=== PATIENT | male | born 1985 | race Caucasian/White ===

== ENCOUNTER 2017-02-05 11:06 | Inpatient (IN) | payer OTHER ==
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
[2017-02-05 12:56] VITALS: BMI 26.4
[2017-02-05] MEDS ORDERED: diazePAM 5 MG TABLET PO ONE (19:59)
[2017-02-05] MEDS ORDERED: NICOTINE 14 MG/24 HOURS TOPICAL PATCH TD PRN (19:59)
[2017-02-05] MEDS ORDERED: LOPERAMIDE HCL 2 MG CAPSULE PO PRN (19:59)
[2017-02-05] MEDS ORDERED: MAG HYDROX/AL HYDROX/SIMETH 30 ML UNIT-DOSE CUP PO PRN (19:59)
[2017-02-05] MEDS ORDERED: guaiFENesin/D-METHORPHAN HB 10 ML UNIT-DOSE CUPS PO PRN (19:59)
[2017-02-05] MEDS ORDERED: ACETAMINOPHEN 325 MG TABLET (FP) PO PRN (19:59)
[2017-02-05] MEDS ORDERED: MAGNESIUM HYDROX 2400MG/30ML ORAL SUSPENSION 30 ML CUP PO PRN (19:59)
[2017-02-05] MEDS ORDERED: MENTHOL/PHENOL 1 EACH UD MM PRN (19:59)
[2017-02-05] MEDS ORDERED: IBUPROFEN 400 MG TABLET (FP) PO PRN (19:59)
[2017-02-05] MEDS ORDERED: MAGNESIUM CITRATE 300 ML BOTTLE PO PRN (19:59)
[2017-02-05] MEDS ORDERED: P-EPHED 60MG/TRIPROLIDI 2.5MG TABLET PO PRN (19:59)
[2017-02-05] MEDS ORDERED: diazePAM 5 MG TABLET ONE (20:33)
[2017-02-05 22:15] LABS: URINE APPEARANCE CLEAR; URINE BILIRUBIN NEGATIVE (NEGATIVE); URINE BLOOD NEGATIVE (NEGATIVE); URINE COLOR LTYELLOW; URINE GLUCOSE (UA) NEGATIVE (NEGATIVE); URINE KETONE NEGATIVE (NEGATIVE); URINE LEUK ESTERASE NEGATIVE (NEGATIVE); URINE NITRITE NEGATIVE (NEGATIVE); URINE PROTEIN NEGATIVE (NEGATIVE); URINE UROBILINOGEN NEGATIVE E.U./dl (0.2-1.0)
[2017-02-05] MEDS: THIAMINE HCL 100 MG TABLET (FP) PO SCH (22:19)
[2017-02-05] MEDS: diazePAM 5 MG TABLET PO SCH (22:19)
[2017-02-05] MEDS: diphenhydrAMINE HCL 50 MG CAPSULE PO PRN (22:56)
[2017-02-06] MEDS: diazePAM 5 MG TABLET PO SCH ×3 (06:01→22:02)
[2017-02-06] MEDS: METHADONE HCL 40 MG DISPERSABLE TABLET PO SCH (07:34)
[2017-02-06] MEDS: diazePAM 5 MG TABLET PO PRN ×3 (08:04→17:12)
[2017-02-06 10:27] LABS: MCHC 32.8 g/dl (32.0-35.9); MEAN CELL VOLUME 91.5 fl (80-96); MEAN PLT VOLUME 9.1 fl (7.5-11.1); PLATELET COUNT 164 K/MM3 (134-434); RDW 13.8 % (11.9-15.9); WHITE BLOOD COUNT 8.6 K/mm3 (4.0-10.0)
[2017-02-06] MEDS: PRENATAL VITAMINS W/ FOLIC ACID TABLET (FP) PO SCH (10:29)
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
[2017-02-06 11:09] LABS: ALK PHOS 83 U/L (45-117); ANION GAP 9 (8-16); BILIRUBIN,TOTAL 0.8 mg/dL (0.2-1.0); CO2 29 mmol/L (21-32); COCKROFT - GAULT 176.8; CREATININE 0.8 mg/dL (0.7-1.3); GLUCOSE,RANDOM 64 mg/dL (74-106); SGOT/AST 38 U/L (15-37); SGPT/ALT 32 U/L (12-78); TOT PROT 6.6 g/dl (6.4-8.2)
[2017-02-06 12:40] LABS: HIV 1 & 2 AB NEGATIVE; HIV 1 AGp24 NEGATIVE
--- NOTE | 2017-02-06 17:20 | EKG ---
Test Reason : Blood Pressure : / mmHG Vent. Rate : 059 BPM Atrial Rate : 059 BPM P-R Int : 130 ms QRS Dur : 106 ms QT Int : 458 ms P-R-T Axes : 001 064 057 degrees QTc Int : 453 ms SINUS BRADYCARDIA OTHERWISE NORMAL ECG NO PREVIOUS ECGS AVAILABLE Confirmed by KELI HERRERA MD ([id number]) on 02/06/2017 5:20:41 PM Referred By: Confirmed By:KELI HERRERA MD
[2017-02-06] MEDS: NICOTINE POLACRILEX 2 MG GUM BC PRN (20:39)
[2017-02-06] MEDS: diphenhydrAMINE HCL 50 MG CAPSULE PO PRN (22:02)
[2017-02-06] MEDS: THIAMINE HCL 100 MG TABLET (FP) PO SCH (22:02)
[2017-02-07] MEDS: diazePAM 5 MG TABLET PO PRN ×4 (02:58→17:13)
[2017-02-07] MEDS: NICOTINE POLACRILEX 2 MG GUM BC PRN (04:11)
[2017-02-07] MEDS: METHADONE HCL 40 MG DISPERSABLE TABLET PO SCH (05:45)
[2017-02-07] MEDS: PRENATAL VITAMINS W/ FOLIC ACID TABLET (FP) PO SCH (10:09)
[2017-02-07] MEDS: diazePAM 5 MG TABLET PO SCH ×2 (10:10→22:03)
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
[2017-02-07] MEDS: BISACODYL 5 MG TABLET.DR (FP) PO SCH (12:59)
[2017-02-07] MEDS: THIAMINE HCL 100 MG TABLET (FP) PO SCH (22:03)
[2017-02-07] MEDS: diphenhydrAMINE HCL 50 MG CAPSULE PO PRN (22:03)
[2017-02-08] MEDS: diazePAM 5 MG TABLET PO PRN ×4 (02:53→17:08)
[2017-02-08] MEDS: METHADONE HCL 40 MG DISPERSABLE TABLET PO SCH (06:01)
[2017-02-08] MEDS: NICOTINE POLACRILEX 2 MG GUM BC PRN (06:04)
[2017-02-08] MEDS: diazePAM 5 MG TABLET PO SCH ×2 (10:03→22:07)
[2017-02-08] MEDS: PRENATAL VITAMINS W/ FOLIC ACID TABLET (FP) PO SCH (10:03)
[2017-02-08] MEDS: BISACODYL 5 MG TABLET.DR (FP) PO SCH (10:03)
[2017-02-08] MEDS: THIAMINE HCL 100 MG TABLET (FP) PO SCH (22:07)
[2017-02-08] MEDS: diphenhydrAMINE HCL 50 MG CAPSULE PO PRN (22:08)
[2017-02-09] MEDS: METHADONE HCL 40 MG DISPERSABLE TABLET PO SCH (05:47)
[2017-02-09 06:20] VITALS: BP 98/59; PULSE 76; TEMP 97.9
[2017-02-09] MEDS: PRENATAL VITAMINS W/ FOLIC ACID TABLET (FP) PO SCH (09:04)
[2017-02-09] MEDS: BISACODYL 5 MG TABLET.DR (FP) PO SCH (09:04)
[2017-02-09] MEDS ORDERED: diazePAM 5 MG TABLET PO SCH (10:00)
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
== END 2017-02-09 09:28 | disposition home or self-care (01) | DRG 773 ==
LOC: YASAS 11:06 → Y3N 17:56
PROVIDERS: ADMIT Internal Medicine; ATTEND Internal Medicine
PROC: HZ2ZZZZ Detoxification Services for Substance Abuse Treatment (ICD-10-PCS; principal; 2017-02-09)
DX: F11.20 Opioid dependence, uncomplicated (principal); F13.20 Sedative, hypnotic or anxiolytic dependence, uncomplicated; F15.20 Other stimulant dependence, uncomplicated; F17.210 Nicotine dependence, cigarettes, uncomplicated; F32.9 Major depressive disorder, single episode, unspecified; S05.12XA Contusion of eyeball and orbital tissues, left eye, initial encounter; S30.1XXA Contusion of abdominal wall, initial encounter; S20.229A Contusion of unspecified back wall of thorax, initial encounter; Y00.XXXA Assault by blunt object, initial encounter; Y93.89 Activity, other specified; Y99.8 Other external cause status
CPT/HCPCS: 36415; 80053; 81003; 85027; 86593; 86803; 87389; 93005; 93010

== ENCOUNTER → 2017-02-05 | Emergency (ER) | payer OTHER ==
[2017-02-05 12:21] VITALS: BP 118/76; PULSE 59; TEMP 98; BMI 29.2
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
[2017-02-05 14:32] LABS: URINE APPEARANCE CLEAR; URINE BILIRUBIN NEGATIVE (NEGATIVE); URINE BLOOD NEGATIVE (NEGATIVE); URINE COLOR LTYELLOW; URINE GLUCOSE (UA) NEGATIVE (NEGATIVE); URINE KETONE NEGATIVE (NEGATIVE); URINE LEUK ESTERASE NEGATIVE (NEGATIVE); URINE NITRITE NEGATIVE (NEGATIVE); URINE PROTEIN NEGATIVE (NEGATIVE); URINE UROBILINOGEN NEGATIVE E.U./dl (0.2-1.0)
== END | disposition home or self-care (01) ==
LOC: JER 12:05
DX: S00.83XA Contusion of other part of head, initial encounter (principal); S30.1XXA Contusion of abdominal wall, initial encounter; S20.222A Contusion of left back wall of thorax, initial encounter; S20.221A Contusion of right back wall of thorax, initial encounter; Y00.XXXA Assault by blunt object, initial encounter; Y93.89 Activity, other specified; Y92.89 Other specified places as the place of occurrence of the external cause; F11.10 Opioid abuse, uncomplicated; F13.10 Sedative, hypnotic or anxiolytic abuse, uncomplicated; F16.10 Hallucinogen abuse, uncomplicated
CPT/HCPCS: 70450-TC; 70486-TC; 72070-TC; 81003; 99281-25

== ENCOUNTER 2017-05-08 16:32 | Inpatient (IN) | payer OTHER ==
[2017-05-08 17:16] VITALS: BMI 26.2
--- NOTE | 2017-05-08 17:42 | HP ---
CIWA Score - CIWA Score Nausea/Vomitin-Mild Nausea/No Vomiting Muscle Tremors: 4-Moderate,w/Arms Extend Anxiety: 4-Mod. Anxious/Guarded Agitation: 4-Moderately Restless Paroxysmal Sweats: 1-Minimal Palms Moist Orientation: 1-Uncertain about Date Tacttile Disturbances: 0-None Auditory Disturbances: 0-None Visual Disturbances: 0-None Headache: 0-None Present CIWA-Ar Total Score: 15 Admission ROS S - HPI Chief Complaint: withdrawal sx Allergies/Adverse Reactions: Allergies Allergy/AdvReac Type Severity Reaction Status Date / Time No Known Allergies Allergy Verified 05/08/17 18:19 History of Present Illness: 32 years old male with long history of xanax nicotine dependence, has depression and on methadone program 120 mg daily is admitted to detox Exam Limitations: No Limitations - Ebola screening Have you traveled outside of the country in the last 21 days: No (N) Have you had contact with anyone from an Ebola affected area: No Have you been sick,other than usual withdrawal symptoms: No Do you have a fever: No - Review of Systems Constitutional: Chills, Loss of Appetite, Changes in sleep, Unintentional Wgt. Loss, Unexplained wgt Loss EENT: reports: No Symptoms Reported Respiratory: reports: No Symptoms reported Cardiac: reports: No Symptoms Reported GI: reports: Nausea, Poor Fluid Intake, Abdominal cramping : reports: No Symptoms Reported Musculoskeletal: reports: No Symptoms Reported Integumentary: reports: Change in Color (hands iv heroin) Neuro: reports: Tremors Endocrine: reports: No Symptoms Reported Hematology: reports: No Symptoms Reported Psychiatric: reports: Judgement Intact, Depressed Other Systems: Reviewed and Negative Patient History - Patient Medical History Hx Anemia: No Hx Asthma: No Hx Chronic Obstructive Pulmonary Disease (COPD): No Hx Cancer: No Hx Cardiac Disorders: No Hx Congestive Heart Failure: No Hx Hypertension: No Hx Hypercholesterolemia: No Hx Pacemaker: No HX Cerebrovascular Accident: No Hx Seizures: No Hx Dementia: No Hx Diabetes: No Hx Gastrointestinal Disorders: No Hx Liver Disease: No Hx Genitourinary Disorders: No Hx Sexually Transmitted Disorders: No Hx Renal Disease (ESRD): No Hx Thyroid Disease: No Hx Human Immunodeficiency Virus (HIV): No Hx Hepatitis C: No Hx Depression: Yes (anxiety) Hx Suicide Attempt: No Hx Bipolar Disorder: No Hx Schizophrenia: No - Patient Surgical History Past Surgical History: No Hx Neurologic Surgery: No Hx Cataract Extraction: No Hx Cardiac Surgery: No Hx Lung Surgery: No Hx Breast Surgery: No Hx Breast Biopsy: No Hx Abdominal Surgery: No Hx Appendectomy: No Hx Cholecystectomy: No Hx Genitourinary Surgery: No Hx Orthopedic Surgery: No - PPD History Previous Implant?: Yes Documented Results: Negative w/proof Implanted On Prior [facility] Admission?: Yes Date: 02/07/17 Results: 0 mm PPD to be Administered?: No - Smoking Cessation Smoking history: Current every day smoker Have you smoked in the past 12 months: Yes Aproximately how many cigarettes per day: 20 Cigars Per Day: 0 Hx Chewing Tobacco Use: No Initiated information on smoking cessation: Yes 'Breaking Loose' booklet given: 05/08/17 - Substance & Tx. History Hx Alcohol Use: No Hx Substance Use: Yes Substance Use Type: Cocaine, Heroin, Tranquilizers Hx Substance Use Treatment: Yes (02/05-02/09/17 [facility] - Substances Abused Alprazolam (Xanax) Route: Oral Frequency: Daily Amount used: 6mg Age of first use: 20 Date of Last Use: 05/07/17 Benzodiazepine (Klonopin) Route: Oral Frequency: Daily Amount used: 4 mg Age of first use: 20 Date of Last Use: 05/08/17 methadone Route: Oral Frequency: Daily Age of first use: 30 Date of Last Use: 05/08/17 Family Disease History - Family Disease History Family Disease History: [place]: Father, Other: Father, Mother (no contact) Admission Physical Exam S - Vital Signs Vital Signs: Vital Signs - 24 hr 05/08/17 17:11 Temperature 96.2 F L Pulse Rate 51 L Respiratory 18 Rate Blood Pressure 97/61 - Physical General Appearance: Yes: Appropriately Dressed, Mild Distress, Thin, Tremorous, Irritable, Sweating, Anxious HEENTM: Yes: Hearing grossly Normal, Normal ENT Inspection, Normocephalic, Normal Voice Respiratory: Yes: Chest Non-Tender, Lungs Clear, Normal Breath Sounds, No Respiratory Distress, No Accessory Muscle Use Neck: Yes: Supple, Trachea in good position Breast: Yes: Breasts Symetrical Cardiology: Yes: Regular Rhythm, S1, S2, Bradycardia Abdominal: Yes: Normal Bowel Sounds, Non Tender, Soft Genitourinary: Yes: Within Normal Limits Back: Yes: Normal Inspection Musculoskeletal: Yes: full range of Motion, Gait Steady, Back pain, Muscle Pain Extremities: Yes: Normal Range of Motion, Non-Tender, Tremors Neurological: Yes: Alert, Motor Strength 5/5, Normal Response, Depressed Affect Integumentary: Yes: Warm, Track Bee Lymphatic: Yes: Within Normal Limits - Diagnostic (1) Sedative/hypnotic withdrawal without complication Current Visit: Yes Status: Acute (2) Weight loss Current Visit: Yes Status: Acute (3) Depression Current Visit: Yes Status: Suspected Qualifiers: Depression Type: dysthymia Qualified Code(s): F34.1 - Dysthymic disorder (4) Methadone maintenance therapy patient Current Visit: Yes Status: Chronic Comment: 120 MG DAILY VERIFICATION PENDING (5) Nicotine dependence Current Visit: Yes Status: Acute Qualifiers: Nicotine product type: cigarettes Substance use status: in withdrawal Qualified Code(s): F17.213 - Nicotine dependence, cigarettes, with withdrawal Cleared for Admission [facility] - Detox or Rehab [facility] Level of Care: Medically Managed Detox Regimen/Protocol: Valium [facility] Breath Alcohol Content Breath Alcohol Content: 0 Urine Drug Screen - Results Drug Screen Negative: No Urine Drug Screen Results: KAVON-Cocaine, OPI-Opiates, PCP-Phencyclidine, BZO- Benzodiazepines, MTD-Methadone
[2017-05-08] MEDS ORDERED: MAGNESIUM HYDROX 2400MG/30ML ORAL SUSPENSION 30 ML CUP PO PRN (17:46)
[2017-05-08] MEDS ORDERED: P-EPHED 60MG/TRIPROLIDI 2.5MG TABLET PO PRN (17:46)
[2017-05-08] MEDS ORDERED: LOPERAMIDE HCL 2 MG CAPSULE PO PRN (17:46)
[2017-05-08] MEDS ORDERED: NICOTINE 21 MG/24 HOURS TOPICAL PATCH TD PRN (17:46)
[2017-05-08] MEDS ORDERED: ACETAMINOPHEN 325 MG TABLET (FP) PO PRN (17:46)
[2017-05-08] MEDS ORDERED: IBUPROFEN 400 MG TABLET (FP) PO PRN (17:46)
[2017-05-08] MEDS ORDERED: MAGNESIUM CITRATE 300 ML BOTTLE PO PRN (17:46)
[2017-05-08] MEDS ORDERED: MAG HYDROX/AL HYDROX/SIMETH 30 ML UNIT-DOSE CUP PO PRN (17:46)
[2017-05-08] MEDS ORDERED: guaiFENesin/D-METHORPHAN HB 10 ML UNIT-DOSE CUPS PO PRN (17:46)
[2017-05-08] MEDS ORDERED: MENTHOL/PHENOL 1 EACH UD MM PRN (17:46)
[2017-05-08] MEDS ORDERED: NICOTINE POLACRILEX 4 MG GUM BC PRN (17:46)
[2017-05-08] MEDS ORDERED: diazePAM 5 MG TABLET PO ONE (18:30)
[2017-05-08] MEDS: diazePAM 5 MG TABLET PO SCH (22:31)
[2017-05-08] MEDS: diphenhydrAMINE HCL 50 MG CAPSULE PO PRN (22:31)
[2017-05-08] MEDS: THIAMINE HCL 100 MG TABLET (FP) PO SCH (22:31)
[2017-05-09] MEDS: diazePAM 5 MG TABLET PO SCH ×3 (07:33→22:06)
--- NOTE | 2017-05-09 08:59 | CONSULT ---
[facility] Psychiatric Consult - Data Date of interview: 05/09/17 Admission source: [facility] Identifying data: This is 32 years old male with no psychiatric hospitalization history intoxicated with: Cocaine, PCP, Xanax, Methadone, Nicotine Substance Abuse History: - Results. Drug Screen Negative: No. Urine Drug Screen Results: KAVON-Cocaine, OPI-Opiates, PCP-Phencyclidine, BZO-Benzodiazepines , MTD-Methadone. - Smoking Cessation. Smoking history: Current every day smoker. Have you smoked in the past 12 months: Yes. Aproximately how many cigarettes per day: 20. Cigars Per Day: 0. Hx Chewing Tobacco Use: No. Initiated information on smoking cessation: Yes. 'Breaking Loose' booklet given : 05/08/17. - Substance & Tx. History. Hx Alcohol Use: No. Hx Substance Use: Yes. Substance Use Type: Cocaine, Heroin, Tranquilizers. Hx Substance Use Treatment: Yes (02/05-02/09/17 [facility]). - Substances Abused. Alprazolam ( Xanax). Route: Oral. Frequency: Daily. Amount used: 6mg. Age of first use: 20. Date of Last Use: 05/07/17. Benzodiazepine (Klonopin). Route: Oral. Frequency: Daily. Amount used: 4 mg. Age of first use: 20. Date of Last Use: 05/08/17. methadone. Route: Oral. Frequency: Daily. Age of first use: 30. Date of Last Use: 05/08/17 Medical History: Weight loss, MMTP 120 /day Psychiatric History: PTSD, reports no medication taking prior to admission Physical/Sexual Abuse/Trauma History: Denies Additional Comment: Observation. Detox Unit Care Protocol- Results. Drug Screen Negative: No. Urine Drug Screen Results: KAVON-Cocaine, OPI-Opiates, PCP- Phencyclidine, BZO-Benzodiazepines, MTD-Methadone Mental Status Exam - Mental Status Exam Alert and Oriented to: Person Cognitive Function: Fair Mood: Sad Affect: Flat Patient Behavior: Sedated Speech Pattern: Delayed Voice Loudness: Mildly Soft/Quiet Thought Process: Circumstantial Thought Disorder: Being Controlled Hallucinations: Denies Suicidal Ideation: Denies Homicidal Ideation: Denies Insight/Judgement: Fair Sleep: Difficulty falling asleep Appetite: Weight loss Muscle strength/Tone: Mild Hypotonicity Gait/Station: Shuffling Additional Comments: Observation. Detox Unit Care Protocol- Results Psychiatric Findings - Problem List (Bangs 1, 2,3) (1) Nicotine dependence Current Visit: Yes Status: Acute Qualifiers: Nicotine product type: cigarettes Substance use status: in withdrawal Qualified Code(s): F17.213 - Nicotine dependence, cigarettes, with withdrawal (2) Sedative/hypnotic withdrawal without complication Current Visit: Yes Status: Acute (3) Methadone maintenance therapy patient Current Visit: Yes Status: Chronic Comment: 120 MG DAILY VERIFICATION PENDING (4) Opioid dependence with withdrawal Current Visit: No Status: Acute (5) PCP dependence Current Visit: No Status: Acute (6) Alcohol dependence with uncomplicated withdrawal Current Visit: No Status: Chronic (7) Anxiety disorder Current Visit: No Status: Chronic (8) Cannabis dependence Current Visit: No Status: Chronic (9) Cocaine dependence Current Visit: No Status: Chronic Qualifiers: Substance use status: uncomplicated Qualified Code(s): F14.20 - Cocaine dependence, uncomplicated (10) Drug-induced mood disorder Current Visit: No Status: Chronic - Initial Treatment Plan Initial Treatment Plan: Observation. Detox Unit Care Protocol- Results
[2017-05-09] MEDS: METHADONE HCL 40 MG DISPERSABLE TABLET PO SCH (09:00)
[2017-05-09] MEDS: diazePAM 5 MG TABLET PO PRN ×2 (09:02→17:27)
--- NOTE | 2017-05-09 09:32 | PN ---
[facility] CIWA - CIWA Score Nausea/Vomitin-No Nausea/No Vomiting Muscle Tremors: 4-Moderate,w/Arms Extend Anxiety: 4-Mod. Anxious/Guarded Agitation: 4-Moderately Restless Paroxysmal Sweats: 1-Minimal Palms Moist Orientation: 0-Oriented Tacttile Disturbances: 2-Mild Itch/Numbness/Burn Auditory Disturbances: 0-None Visual Disturbances: 0-None Headache: 0-None Present CIWA-Ar Total Score: 15 S Progress Note (SOAP) Subjective: ANXIETY,SWEATS,IRRITABILITY,FATIGUE. Objective: 05/09/17 09:32 Vital Signs Temperature 97.3 F L 05/09/17 09:29 Pulse Rate 78 05/09/17 09:29 Respiratory Rate 18 05/09/17 09:29 Blood Pressure 102/68 05/09/17 09:29 O2 Sat by Pulse Oximetry (%) LABS PENDING Assessment: 05/09/17 09:32 WITHDRAWAL SX Plan: CONTINUE DETOX
[2017-05-09 10:21] LABS: MCH 29.5 pg (25.7-33.7); MCHC 32.9 g/dl (32.0-35.9); MEAN CELL VOLUME 89.8 fl (80-96); MEAN PLT VOLUME 8.9 fl (7.5-11.1); PLATELET COUNT 147 K/MM3 (134-434); RDW 13.9 % (11.9-15.9); WHITE BLOOD COUNT 6.3 K/mm3 (4.0-10.0)
[2017-05-09 10:44] LABS: ALBUMIN 3.3 g/dl (3.4-5.0); ALK PHOS 78 U/L (45-117); ANION GAP 5 (8-16); BILIRUBIN,TOTAL 0.4 mg/dL (0.2-1.0); CALCIUM 8.7 mg/dL (8.5-10.1); CO2 32 mmol/L (21-32); CREATININE 0.6 mg/dL (0.7-1.3); GLUCOSE,RANDOM 77 mg/dL (74-106); SGOT/AST 18 U/L (15-37); SGPT/ALT 20 U/L (12-78); TOT PROT 5.7 g/dl (6.4-8.2)
[2017-05-09] MEDS: PRENATAL VITAMINS W/ FOLIC ACID TABLET (FP) PO SCH (11:43)
[2017-05-09 12:07] LABS: HIV 1 & 2 AB NEGATIVE; HIV 1 AGp24 NEGATIVE
[2017-05-09 15:12] LABS: URINE APPEARANCE CLEAR; URINE BILIRUBIN NEGATIVE (NEGATIVE); URINE BLOOD NEGATIVE (NEGATIVE); URINE COLOR LTYELLOW; URINE GLUCOSE (UA) NEGATIVE (NEGATIVE); URINE KETONE NEGATIVE (NEGATIVE); URINE LEUK ESTERASE NEGATIVE (NEGATIVE); URINE NITRITE NEGATIVE (NEGATIVE); URINE PROTEIN NEGATIVE (NEGATIVE); URINE UROBILINOGEN NEGATIVE mg/dL (0.2-1.0)
--- NOTE | 2017-05-09 20:01 | EKG ---
Test Reason : Blood Pressure : / mmHG Vent. Rate : 046 BPM Atrial Rate : 046 BPM P-R Int : 132 ms QRS Dur : 104 ms QT Int : 450 ms P-R-T Axes : 002 063 059 degrees QTc Int : 393 ms SINUS BRADYCARDIA OTHERWISE NORMAL ECG WHEN COMPARED WITH ECG OF 05-FEB-2017 18:27, QT HAS SHORTENED Confirmed by HERNESTO LOPES MD ([id number]) on 05/09/2017 8:01:19 PM Referred By: Confirmed By:HERNESTO LOPES MD
[2017-05-09] MEDS: THIAMINE HCL 100 MG TABLET (FP) PO SCH (22:06)
[2017-05-09] MEDS: diphenhydrAMINE HCL 50 MG CAPSULE PO PRN (22:06)
[2017-05-10] MEDS: METHADONE HCL 40 MG DISPERSABLE TABLET PO SCH (06:04)
[2017-05-10] MEDS: diazePAM 5 MG TABLET PO PRN ×2 (06:06→17:18)
[2017-05-10] MEDS: PRENATAL VITAMINS W/ FOLIC ACID TABLET (FP) PO SCH (10:06)
[2017-05-10] MEDS: diazePAM 5 MG TABLET PO SCH ×2 (10:06→22:01)
--- NOTE | 2017-05-10 10:17 | PN ---
[facility] CIWA - CIWA Score Nausea/Vomitin-No Nausea/No Vomiting Muscle Tremors: 4-Moderate,w/Arms Extend Anxiety: 4-Mod. Anxious/Guarded Agitation: 4-Moderately Restless Paroxysmal Sweats: 1-Minimal Palms Moist Orientation: 0-Oriented Tacttile Disturbances: 3-Moderate Itch/Numb/Burn Auditory Disturbances: 0-None Visual Disturbances: 0-None Headache: 0-None Present CIWA-Ar Total Score: 16 S Progress Note (SOAP) Subjective: ANXIETY,TREMORS,BODY ACHE,IRRITABILITY, FATIGUE. Objective: 05/10/17 10:17 Vital Signs Temperature 98.2 F 05/10/17 09:39 Pulse Rate 86 05/10/17 09:39 Respiratory Rate 16 05/10/17 09:39 Blood Pressure 92/61 05/10/17 09:39 O2 Sat by Pulse Oximetry (%) Laboratory Last Values WBC 6.3 K/mm3 (4.0-10.0) 05/09/17 07:00 RBC 4.38 M/mm3 (4.00-5.60) 05/09/17 07:00 Hgb 12.9 GM/dL (11.7-16.9) 05/09/17 07:00 Hct 39.3 % (35.4-49) 05/09/17 07:00 MCV 89.8 fl (80-96) 05/09/17 07:00 MCH 29.5 pg (25.7-33.7) 05/09/17 07:00 MCHC 32.9 g/dl (32.0-35.9) 05/09/17 07:00 RDW 13.9 % (11.9-15.9) 05/09/17 07:00 Plt Count 147 K/MM3 (134-434) 05/09/17 07:00 MPV 8.9 fl (7.5-11.1) 05/09/17 07:00 Sodium 144 mmol/L (136-145) 05/09/17 07:00 Potassium 4.2 mmol/L (3.5-5.1) 05/09/17 07:00 Chloride 107 mmol/L (98-107) 05/09/17 07:00 Carbon Dioxide 32 mmol/L (21-32) 05/09/17 07:00 Anion Gap 5 (8-16) L 05/09/17 07:00 BUN 8 mg/dL (7-18) D 05/09/17 07:00 Creatinine 0.6 mg/dL (0.7-1.3) L D 05/09/17 07:00 Creat Clearance w eGFR > 60 (>60) 05/09/17 07:00 Random Glucose 77 mg/dL (74-106) D 05/09/17 07:00 Calcium 8.7 mg/dL (8.5-10.1) 05/09/17 07:00 Total Bilirubin 0.4 mg/dL (0.2-1.0) D 05/09/17 07:00 AST 18 U/L (15-37) D 05/09/17 07:00 ALT 20 U/L (12-78) D 05/09/17 07:00 Alkaline Phosphatase 78 U/L (45-117) 05/09/17 07:00 Total Protein 5.7 g/dl (6.4-8.2) L 05/09/17 07:00 Albumin 3.3 g/dl (3.4-5.0) L 05/09/17 07:00 Urine Color Ltyellow 05/09/17 12:10 Urine Appearance Clear 05/09/17 12:10 Urine pH 7.0 (5.0-8.0) 05/09/17 12:10 Ur Specific [place] 1.015 (1.005-1.025) 05/09/17 12:10 Urine Protein Negative (NEGATIVE) 05/09/17 12:10 Urine Glucose (UA) Negative (NEGATIVE) 05/09/17 12:10 Urine Ketones Negative (NEGATIVE) 05/09/17 12:10 Urine Blood Negative (NEGATIVE) 05/09/17 12:10 Urine Nitrite Negative (NEGATIVE) 05/09/17 12:10 Urine Bilirubin Negative (NEGATIVE) 05/09/17 12:10 Urine Urobilinogen Negative mg/dL (0.2-1.0) 05/09/17 12:10 Ur Leukocyte Esterase Negative (NEGATIVE) 05/09/17 12:10 RPR Titer Nonreactive (NONREACTIVE) 05/09/17 07:00 Hepatitis C Antibody <0.1 s/co ratio (0.0-0.9) 05/08/17 07:00 HIV 1&2 Antibody Screen Negative 05/09/17 07:00 HIV P24 Antigen Negative 05/09/17 07:00 Assessment: 05/10/17 10:18 WITHDRAWAL SX Plan: CONTINUE DETOX INCREASE PO FLUIDS.
[2017-05-10] MEDS ORDERED: NICOTINE 21 MG/24 HOURS TOPICAL PATCH TD ONE (12:00)
[2017-05-10] MEDS: THIAMINE HCL 100 MG TABLET (FP) PO SCH (22:01)
[2017-05-10] MEDS: diphenhydrAMINE HCL 50 MG CAPSULE PO PRN (22:01)
[2017-05-11] MEDS: METHADONE HCL 40 MG DISPERSABLE TABLET PO SCH (05:12)
[2017-05-11] MEDS: diazePAM 5 MG TABLET PO PRN ×2 (05:13→16:46)
[2017-05-11] MEDS ORDERED: NICOTINE 21 MG/24 HOURS TOPICAL PATCH TD SCH (10:00)
--- NOTE | 2017-05-11 10:28 | PN ---
S Progress Note (SOAP) Subjective: ANXIETY,SWEATS,FATIGUE. Objective: 05/11/17 10:27 Vital Signs 05/11/17 05/11/17 05/11/17 04:28 06:18 09:24 Temperature 97.2 F L 97.1 F L Pulse Rate 76 70 Respiratory 18 16 18 Rate Blood Pressure 90/59 78/55 Laboratory Last Values WBC 6.3 K/mm3 (4.0-10.0) 05/09/17 07:00 RBC 4.38 M/mm3 (4.00-5.60) 05/09/17 07:00 Hgb 12.9 GM/dL (11.7-16.9) 05/09/17 07:00 Hct 39.3 % (35.4-49) 05/09/17 07:00 MCV 89.8 fl (80-96) 05/09/17 07:00 MCH 29.5 pg (25.7-33.7) 05/09/17 07:00 MCHC 32.9 g/dl (32.0-35.9) 05/09/17 07:00 RDW 13.9 % (11.9-15.9) 05/09/17 07:00 Plt Count 147 K/MM3 (134-434) 05/09/17 07:00 MPV 8.9 fl (7.5-11.1) 05/09/17 07:00 Sodium 144 mmol/L (136-145) 05/09/17 07:00 Potassium 4.2 mmol/L (3.5-5.1) 05/09/17 07:00 Chloride 107 mmol/L (98-107) 05/09/17 07:00 Carbon Dioxide 32 mmol/L (21-32) 05/09/17 07:00 Anion Gap 5 (8-16) L 05/09/17 07:00 BUN 8 mg/dL (7-18) D 05/09/17 07:00 Creatinine 0.6 mg/dL (0.7-1.3) L D 05/09/17 07:00 Creat Clearance w eGFR > 60 (>60) 05/09/17 07:00 Random Glucose 77 mg/dL (74-106) D 05/09/17 07:00 Calcium 8.7 mg/dL (8.5-10.1) 05/09/17 07:00 Total Bilirubin 0.4 mg/dL (0.2-1.0) D 05/09/17 07:00 AST 18 U/L (15-37) D 05/09/17 07:00 ALT 20 U/L (12-78) D 05/09/17 07:00 Alkaline Phosphatase 78 U/L (45-117) 05/09/17 07:00 Total Protein 5.7 g/dl (6.4-8.2) L 05/09/17 07:00 Albumin 3.3 g/dl (3.4-5.0) L 05/09/17 07:00 Urine Color Ltyellow 05/09/17 12:10 Urine Appearance Clear 05/09/17 12:10 Urine pH 7.0 (5.0-8.0) 05/09/17 12:10 Ur Specific [place] 1.015 (1.005-1.025) 05/09/17 12:10 Urine Protein Negative (NEGATIVE) 05/09/17 12:10 Urine Glucose (UA) Negative (NEGATIVE) 05/09/17 12:10 Urine Ketones Negative (NEGATIVE) 05/09/17 12:10 Urine Blood Negative (NEGATIVE) 05/09/17 12:10 Urine Nitrite Negative (NEGATIVE) 05/09/17 12:10 Urine Bilirubin Negative (NEGATIVE) 05/09/17 12:10 Urine Urobilinogen Negative mg/dL (0.2-1.0) 05/09/17 12:10 Ur Leukocyte Esterase Negative (NEGATIVE) 05/09/17 12:10 RPR Titer Nonreactive (NONREACTIVE) 05/09/17 07:00 Hepatitis C Antibody <0.1 s/co ratio (0.0-0.9) 05/08/17 07:00 HIV 1&2 Antibody Screen Negative 05/09/17 07:00 HIV P24 Antigen Negative 05/09/17 07:00 Assessment: 05/11/17 10:27 WITHDRAWAL SX Plan: CONTINUE DETOX
[2017-05-11] MEDS: PRENATAL VITAMINS W/ FOLIC ACID TABLET (FP) PO SCH (10:57)
[2017-05-11] MEDS: diazePAM 5 MG TABLET PO SCH ×2 (11:08→22:04)
[2017-05-11] MEDS: THIAMINE HCL 100 MG TABLET (FP) PO SCH (22:04)
[2017-05-11] MEDS: diphenhydrAMINE HCL 50 MG CAPSULE PO PRN (22:06)
[2017-05-12] MEDS: METHADONE HCL 40 MG DISPERSABLE TABLET PO SCH (05:48)
[2017-05-12 06:09] VITALS: BP 97/60; PULSE 67; TEMP 96.7
[2017-05-12] MEDS ORDERED: diazePAM 5 MG TABLET PO SCH (10:00)
--- NOTE | 2017-05-12 22:14 | DS ---
[facility] Detox Discharge Summary Admission Date: 05/08/17 Discharge Date: 05/12/17 - History Present History: Alcohol Dependence, Cannabis Dependence, Cocaine Dependence, Opioid Dependence, Sedative Dependence, Pcp Dependence, MMTP Additional Comments: PATIENT [facility] PATIENT ADVISED TO FOLLOW-UP THERE FOR AFTERCARE PER DISCHARGE ARRANGEMENT. PATIENT DISCHARGED FROM UNIT IN STABLE MEDICAL CONDITION. Pertinent Past History: Depression / Anxiety, MMTP. - Physical Exam Results Vital Signs: Vital Signs Temperature 96.7 F L 05/12/17 06:08 Pulse Rate 67 05/12/17 06:08 Respiratory Rate 18 05/12/17 06:08 Blood Pressure 97/60 05/12/17 06:08 O2 Sat by Pulse Oximetry (%) Pertinent Admission Physical Exam Findings: WITHDRAWAL SYMPTOMS. Laboratory Tests 05/08/17 05/09/17 05/09/17 07:00 07:00 07:00 WBC 6.3 RBC 4.38 Hgb 12.9 Hct 39.3 MCV 89.8 MCH 29.5 MCHC 32.9 RDW 13.9 Plt Count 147 MPV 8.9 Sodium 144 Potassium 4.2 Chloride 107 Carbon Dioxide 32 Anion Gap 5 L BUN 8 D Creatinine 0.6 L D Creat Clearance w eGFR > 60 Random Glucose 77 D Calcium 8.7 Total Bilirubin 0.4 D AST 18 D ALT 20 D Alkaline Phosphatase 78 Total Protein 5.7 L Albumin 3.3 L Urine Color Urine Appearance Urine pH Ur Specific [place] Urine Protein Urine Glucose (UA) Urine Ketones Urine Blood Urine Nitrite Urine Bilirubin Urine Urobilinogen Ur Leukocyte Esterase RPR Titer Hepatitis C Antibody <0.1 HIV 1&2 Antibody Screen HIV P24 Antigen 05/09/17 05/09/17 05/09/17 07:00 07:00 12:10 WBC RBC Hgb Hct MCV MCH MCHC RDW Plt Count MPV Sodium Potassium Chloride Carbon Dioxide Anion Gap BUN Creatinine Creat Clearance w eGFR Random Glucose Calcium Total Bilirubin AST ALT Alkaline Phosphatase Total Protein Albumin Urine Color Ltyellow Urine Appearance Clear Urine pH 7.0 Ur Specific [place] 1.015 Urine Protein Negative Urine Glucose (UA) Negative Urine Ketones Negative Urine Blood Negative Urine Nitrite Negative Urine Bilirubin Negative Urine Urobilinogen Negative Ur Leukocyte Esterase Negative RPR Titer Nonreactive Hepatitis C Antibody HIV 1&2 Antibody Screen Negative HIV P24 Antigen Negative LABS NOTED. - Treatment Hospital Course: Detox Protocol Followed, Detoxed Safely, Responded well, Discharged Condition Good Patient has Accepted a Rehab Referral to: PATIENT TO [facility] TO [facility] FOR FOLLOW-UP AFTERCARE. - Medication Discharge Medications: Ambulatory Orders NK [No Known Home Medication] 02/05/17 - Diagnosis (1) Nicotine dependence Status: Chronic Qualifiers: Nicotine product type: cigarettes Substance use status: in withdrawal Qualified Code(s): F17.213 - Nicotine dependence, cigarettes, with withdrawal (2) PCP dependence Status: Acute (3) Sedative/hypnotic withdrawal without complication Status: Acute (4) Alcohol dependence with uncomplicated withdrawal Status: Chronic (5) Cannabis dependence Status: Chronic (6) Cocaine dependence Status: Chronic Qualifiers: Substance use status: uncomplicated Qualified Code(s): F14.20 - Cocaine dependence, uncomplicated (7) Drug-induced mood disorder Status: Chronic (8) Methadone maintenance therapy patient Status: Chronic (9) Opioid dependence with withdrawal Status: Acute (10) Anxiety disorder Status: Chronic Qualifiers: Anxiety disorder type: unspecified anxiety disorder Qualified Code(s ): F41.9 - Anxiety disorder, unspecified (11) Weight loss Status: Acute - AMA Did Patient Leave Against Medical Advice: No
== END 2017-05-12 07:20 | disposition home or self-care (01) | DRG 773 ==
LOC: YASAS 16:32 → Y3N 18:05
PROVIDERS: ADMIT Internal Medicine; ATTEND Internal Medicine
PROC: HZ2ZZZZ Detoxification Services for Substance Abuse Treatment (ICD-10-PCS; principal; 2017-05-08)
DX: F13.230 Sedative, hypnotic or anxiolytic dependence with withdrawal, uncomplicated (principal); F11.20 Opioid dependence, uncomplicated; F16.20 Hallucinogen dependence, uncomplicated; F17.210 Nicotine dependence, cigarettes, uncomplicated; Y00.XXXS Assault by blunt object, sequela
CPT/HCPCS: 36415; 80053; 81003; 85027; 86593; 86803; 87389; 93005; 93010

== ENCOUNTER 2020-06-14 18:18 | Inpatient (IN) | payer OTHER ==
[2020-06-14 19:20] VITALS: BMI 23.1
--- NOTE | 2020-06-14 19:50 | BHS.RME ---
Substance Use & Tx History - Substance Use History Alcohol Substance amount: liquor 8-10 Frequency of use: Daily Substance route: Oral Cocaine-Crack Substance amount: 50-100 $ /DAY Frequency of use: Daily Heroin Substance amount: 1 BAG Frequency of use: Daily Substance route: Inhalation (ex: sniffing or snorting) Klonopin Substance amount: 2 MG Frequency of use: Daily Substance route: Oral - Last Treatment Where was last treatment: Detox (2 MO AGO @ [facility]) Physical/Psych/Mental Status - Behavior Eye Contact: Normal - Cooperativeness Cooperativeness: Cooperative - Thinking Thought Processes: Logical - Physical Health Problems Is patient presently having any pain?: Yes (BODYACHES) Does patient presently have any injuries (include location): No Does patient currently have a fever: No CIWA Nausea/Vomitin-No Nausea/No Vomiting Muscle Tremors: 2 Anxiety: 4-Mod. Anxious/Guarded Agitation: 4-Moderately Restless Paroxysmal Sweats: 2 Orientation: 3-Disoriented Date>2 days Tacttile Disturbances: 0-None Auditory Disturbances: 0-None Visual Disturbances: 0-None Headache: 0-None Present CIWA-Ar Total Score: 15
--- NOTE | 2020-06-14 19:55 | HP ---
"CIWA Score Nausea/Vomitin-No Nausea/No Vomiting Muscle Tremors: 2 Anxiety: 4-Mod. Anxious/Guarded Agitation: 4-Moderately Restless Paroxysmal Sweats: 2 Orientation: 3-Disoriented Date>2 days Tacttile Disturbances: 0-None Auditory Disturbances: 0-None Visual Disturbances: 0-None Headache: 0-None Present CIWA-Ar Total Score: 15 - Admission Criteria OASAS Guidelines: Admission for Medically Managed Detox: Requires at least one of the followin. CIWA greater than 12 2. Seizures within the past 24 hours 3. Delirium tremens within the past 24 hours 4. Hallucinations within the past 24 hours 5. Acute intervention needed for co occurring medical disorder 6. Acute intervention needed for co occurring psychiatric disorder 7. Severe withdrawal that cannot be handled at a lower level of care (continued vomiting, continued diarrhea, abnormal vital signs) requiring intravenous medication and/or fluids 8. Admitting History and Physical - Smoking History Smoking history: Smoker current status UNK Have you smoked in the past 12 months: No Aproximately how many cigarettes per day: 10 - Alcohol/Substance Use Hx Alcohol Use: No Admission ROS [facility] Allergies/Adverse Reactions: Allergies Allergy/AdvReac Type Severity Reaction Status Date / Time No Known Allergies Allergy Verified 06/14/20 20:20 History of Present Illness: This report was requested by: Mimi Yuan | Reference #: [id number] Others' Prescriptions Patient Name: Enrico Fry Date: 1985 Address: [address] [place] [address] [id number]: Male Rx Written Rx Dispensed Drug Quantity Days Supply Prescriber Name Payment Method Dispenser 05/18/2020 05/18/2020 dextroamp-amphetamin 20 mg tab 30 30 Allyson, [place] [facility] 05/18/2020 05/18/2020 clonazepam 1 mg tablet 60 30 Allyson, [place] [employer] [facility] 03/23/2020 03/23/2020 dextroamp-amphetamin 20 mg tab 30 30 Allyson, [place] [employer] [facility] 03/23/2020 03/23/2020 clonazepam 1 mg tablet 60 30 Allyson, [place] [employer] [facility] 02/20/2020 02/20/2020 dextroamp-amphetamin 20 mg tab 30 30 Allyson, [place] [facility] 02/20/2020 02/20/2020 clonazepam 1 mg tablet 60 30 Allyson, [place] [facility] 11/20/2019 11/20/2019 dextroamp-amphetamin 10 mg tab 30 30 Allyson, [employer] [employer] [facility] 11/20/2019 11/20/2019 clonazepam 1 mg tablet 60 30 Allyson, [employer] [employer] [facility] 10/21/2019 10/21/2019 dextroamp-amphetamin 10 mg tab 30 30 Allyson, [employer] [employer] [facility] 10/21/2019 10/21/2019 clonazepam 1 mg tablet 60 30 Allyson, [place] [facility] 09/22/2019 09/22/2019 clonazepam 1 mg tablet 60 30 Obi, [facility] 07/21/2019 07/23/2019 clonazepam 2 mg tablet 46 23 Obi, Franco [facility] 07/14/2019 07/14/2019 clonazepam 2 mg tablet 14 7 Obi, Franco [employer] [facility] 35 Y.O. male requesting detox from benzodiazepine use , reports klonopin 2 mg daily x 20 years, latest use yesterday , reports abusing rx of klonopin . etoh : 8-10 malt liquor bottles/day x 2 months , latest use this morning , denies seizures , blackouts , reports tremors if not drinking cocaine - daily use in [facility] 5 years , current daily dose 165 mg , heroin IV since late , OD x 2 PMHX : denies PSHx : denies Psych : PTSD , anxiety , depression - on Klonazepam Exam Limitations: Clinical Condition - Review of Systems Constitutional: Chills, Loss of Appetite, Night Sweats EENT: reports: No Symptoms Reported, Dental Problems Respiratory: reports: No Symptoms reported Cardiac: reports: No Symptoms Reported GI: reports: Diarrhea, Poor Appetite : reports: No Symptoms Reported Musculoskeletal: reports: Muscle Pain Integumentary: reports: See HPI Neuro: reports: No Symptoms reported Endocrine: reports: No Symptoms Reported Hematology: reports: No Symptoms Reported Psychiatric: reports: Agitated, Anxious, Disorientated Patient History - Patient Medical History Hx Anemia: No Hx Asthma: No Hx Chronic Obstructive Pulmonary Disease (COPD): No Hx Cancer: No Hx Cardiac Disorders: No Hx Congestive Heart Failure: No Hx Hypertension: No Hx Hypercholesterolemia: No Hx Pacemaker: No HX Cerebrovascular Accident: No Hx Seizures: No Hx Dementia: No Hx Diabetes: No Hx Gastrointestinal Disorders: No Hx Liver Disease: No Hx Genitourinary Disorders: No Hx Sexually Transmitted Disorders: No Hx Renal Disease (ESRD): No Hx Thyroid Disease: No Hx Human Immunodeficiency Virus (HIV): No Hx Hepatitis C: No Hx Depression: No Hx Suicide Attempt: No Hx Bipolar Disorder: No Hx Schizophrenia: No - Patient Surgical History Past Surgical History: No Hx Neurologic Surgery: No Hx Cataract Extraction: No Hx Cardiac Surgery: No Hx Lung Surgery: No Hx Breast Surgery: No Hx Breast Biopsy: No Hx Abdominal Surgery: No Hx Appendectomy: No Hx Cholecystectomy: No Hx Genitourinary Surgery: No Hx Section: No Hx Orthopedic Surgery: No Anesthesia Reaction: No - PPD History Date: 02/07/17 Results: 0 mm - Smoking Cessation Smoking history: Smoker current status UNK Have you smoked in the past 12 months: No Aproximately how many cigarettes per day: 10 Cigars Per Day: 0 Hx Chewing Tobacco Use: No Admission Physical Exam BHS - Vital Signs Vital Signs: Vital Signs - 24 hr 06/14/20 19:18 Temperature 98.3 F Pulse Rate 73 Respiratory 19 Rate Blood Pressure 121/70 - Physical General Appearance: Yes: Disheveled, Moderate Distress, Sweating, Anxious HEENTM: Yes: EOMI, Hearing grossly Normal, Normocephalic, Normal Voice Respiratory: Yes: Chest Non-Tender, Lungs Clear, Normal Breath Sounds, No Respiratory Distress, No Accessory Muscle Use Neck: Yes: No masses,lesions,Nodules, Trachea in good position Cardiology: Yes: Regular Rhythm, Regular Rate, S1, S2 Abdominal: Yes: Non Tender, Soft Musculoskeletal: Yes: Gait Steady Extremities: Yes: Normal Range of Motion, Non-Tender Neurological: Yes: Alert, Motor Strength 5/5, Disoriented Integumentary: Yes: Warm, Track Bee - Diagnostic (1) Alcohol dependence with uncomplicated withdrawal Current Visit: Yes Status: Chronic (2) Cocaine dependence Current Visit: Yes Status: Chronic Qualifiers: Substance use status: uncomplicated Qualified Code(s): F14.20 - Cocaine dependence, uncomplicated (3) Methadone maintenance therapy patient Current Visit: Yes Status: Chronic Comment: 165 MG DAILY VERIFICATION PENDING (4) Nicotine dependence Current Visit: Yes Status: Chronic Qualifiers: Nicotine product type: cigarettes (5) Sedative abuse Current Visit: Yes Status: Chronic Breathalyzer - Breathalyzer Breathalyzer: 0.029 Urine Drug Screen - Test Device Lot number: [id number] Expiration date: 04/27/22 - Control Is test valid?: Yes - Results Drug screen NEGATIVE: No Urine drug screen results: KAVON-Cocaine, FEN-Fentanyl, MOP-Opiates, MTD- Methadone, BZO-Benzodiazepines Inpatient Rehab Admission - Rehab Decision to Admit Inpatient rehab admission?: No"
[2020-06-14] MEDS ORDERED: MAGNESIUM HYDROX 2400MG/30ML ORAL SUSPENSION 30 ML CUP PO PRN (20:11)
[2020-06-14] MEDS ORDERED: ACETAMINOPHEN 325 MG TABLET (FP) PO PRN ×2 (20:11)
[2020-06-14] MEDS ORDERED: MENTHOL/PHENOL 1 EACH UD MM PRN (20:11)
[2020-06-14] MEDS ORDERED: MAG HYDROX/AL HYDROX/SIMETH 30 ML UNIT-DOSE CUP PO PRN (20:11)
[2020-06-14] MEDS ORDERED: BISMUTH SUBSALICYLATE 524 MG/30 ML UD PO PRN (20:11)
[2020-06-14] MEDS ORDERED: IBUPROFEN 400 MG TABLET (FP) PO PRN (20:11)
[2020-06-14] MEDS ORDERED: ONDANSETRON *ODT* 4 MG TABLET SL PRN (20:11)
[2020-06-14] MEDS ORDERED: MAGNESIUM CITRATE 300 ML BOTTLE PO PRN (20:11)
[2020-06-14] MEDS ORDERED: chlordiazePOXIDE HCL 25 MG CAPSULE PO PRN (20:18)
[2020-06-14] MEDS ORDERED: chlordiazePOXIDE HCL 25 MG CAPSULE PO ONE (20:45)
[2020-06-14] MEDS: MELATONIN 5 MG TABLETS PO SCH (22:09)
[2020-06-14] MEDS: THIAMINE HCL 100 MG TABLET (FP) PO SCH (22:09)
[2020-06-14] MEDS: chlordiazePOXIDE HCL 25 MG CAPSULE PO SCH (22:09)
[2020-06-15] MEDS: chlordiazePOXIDE HCL 25 MG CAPSULE PO SCH ×4 (07:18→22:09)
[2020-06-15] MEDS ORDERED: METHADONE HCL 10 MG TABLET PO ONE (09:00)
[2020-06-15] MEDS ORDERED: METHADONE 160 MG, METHADONE 5 MG PO ONE (09:00)
--- NOTE | 2020-06-15 09:03 | PN ---
S CIWA - CIWA Score Nausea/Vomitin-Mild Nausea/No Vomiting Muscle Tremors: 2 Anxiety: 4-Mod. Anxious/Guarded Agitation: 1-Slight > Activity Paroxysmal Sweats: No Perspiration Orientation: 0-Oriented Tacttile Disturbances: 0-None Auditory Disturbances: 0-None Visual Disturbances: 2-Mild Sensitivity Headache: 2-Mild CIWA-Ar Total Score: 12 BHS Progress Note (SOAP) Subjective: 35 years old male was admitted on 06/14/20 for alcohol withdrawal sx management treating with librium detox regiment mr james is taking klonazepan 1 mg po bid daily last 30 days filled 05/08/20 feels tired limited conversation with staff bmi 23.1 ensure 120 ml po tid with meals methadone verified 165mg po daily Objective: 06/15/20 09:05 Vital Signs - 24 hr 06/14/20 06/14/20 06/14/20 19:18 20:20 21:12 Temperature 98.3 F 98.3 F 97.9 F Pulse Rate 73 73 65 Respiratory 19 19 18 Rate Blood Pressure 121/70 121/70 117/74 O2 Sat by Pulse 97 Oximetry (%) 06/15/20 06:35 Temperature 97.3 F L Pulse Rate 80 Respiratory 18 Rate Blood Pressure 102/51 L O2 Sat by Pulse 99 Oximetry (%) 06/15/20 09:06 lab pending Assessment: 06/15/20 09:06 alcohol withdrawal methadone maintenance program Plan: librium regiment
[2020-06-15] MEDS ORDERED: METHADONE HCL 40 MG DISPERSABLE TABLET ONE (09:15)
[2020-06-15] MEDS ORDERED: METHADONE HCL 5 MG TABLET ONE (09:15)
[2020-06-15] MEDS: PRENATAL VITAMINS W/ FOLIC ACID TABLET (FP) PO SCH (10:05)
[2020-06-15] MEDS: NICOTINE 7 MG/24 HOURS TOPICAL PATCH TD SCH (10:06)
[2020-06-15 10:32] LABS: ALBUMIN 3.5 g/dl (3.4-5.0); BILIRUBIN,TOTAL 0.8 mg/dL (0.2-1); BLOOD UREA NITROGEN 12.9 mg/dL (7-18); CALCIUM 8.8 mg/dL (8.5-10.1); CREATININE 0.9 mg/dL (0.55-1.3); POTASSIUM 4.3 mmol/L (3.5-5.1); TOT PROT 6.5 g/dl (6.4-8.2)
[2020-06-15 10:47] LABS: HEMATOCRIT 40.2 % (35.4-49); HEMOGLOBIN 13.1 GM/dL (11.7-16.9); MCH 30.8 pg (25.7-33.7); MCHC 32.7 g/dl (32.0-35.9); MEAN CELL VOLUME 94.5 fl (80-96); MEAN PLT VOLUME 8.2 fl (7.5-11.1); PLATELET COUNT 194 K/MM3 (134-434); RBC 4.26 M/mm3 (4.00-5.60); RDW 14.8 % (11.9-15.9); WHITE BLOOD COUNT 6.7 K/mm3 (4.0-10.0)
--- NOTE | 2020-06-15 12:41 | CONSULT ---
[facility] Psychiatric Consult - Data Date of interview: 06/15/20 Admission source: [facility] Identifying data: Patient is a 35 year old single male, without children, unemployed, homeless, and is not currently receiving SSI. This is one of multiple admissions for patient. Patient admitted to for alcohol and cocaine dependence. Substance Abuse History: Urine drug screen results: KAVON-Cocaine, FEN-Fentanyl, MOP-Opiates, MTD-Methadone, BZO-Benzodiazepines Medical History: denies. Psychiatric History: Interview conducted bedside. Patient presents as lethargic. Patient denies history of psychiatric hospitalization and suicide attempt. States that he is currently provided with outpatient psychiatric care at the [facility] on [address] [place] [address] and states that he is prescribed Lexapro 20mg + Adderal + Klonopin. Patient reports a past diagnosis of depression. Mr. Anand states that he has not taken medications for several months. At present patient presents as fatigue and lethargic and stated that he is not interested in resuming his medications. Physical/Sexual Abuse/Trauma History: denies. Mental Status Exam - Mental Status Exam Alert and Oriented to: Time, Place, Person Cognitive Function: Good Patient Appearance: Disheveled Mood: Withdrawn Affect: Mood Congruent Patient Behavior: Sedated, Fatigued Speech Pattern: Delayed (Patient presents as fatigue. ) Voice Loudness: Mildly Soft/Quiet Thought Process: Goal Oriented Thought Disorder: Not Present Hallucinations: Denies Suicidal Ideation: Denies Homicidal Ideation: Denies Insight/Judgement: Poor Sleep: Fair Appetite: Fair Muscle strength/Tone: Normal Gait/Station: Other (Gait not observed.) Psychiatric Findings - Problem List ([place] 1, 2,3) (1) Substance induced mood disorder Current Visit: Yes Status: Acute (2) Alcohol dependence with uncomplicated withdrawal Current Visit: Yes Status: Chronic (3) Cocaine dependence Current Visit: Yes Status: Chronic Qualifiers: Substance use status: uncomplicated Qualified Code(s): F14.20 - Cocaine dependence, uncomplicated (4) Methadone maintenance therapy patient Current Visit: Yes Status: Chronic Comment: 165 MG DAILY VERIFICATION PENDING - Initial Treatment Plan Initial Treatment Plan: Psychoeducation provided. Detoxification in progress. Observation
[2020-06-15] MEDS: THIAMINE HCL 100 MG TABLET (FP) PO SCH (22:08)
[2020-06-15] MEDS: MELATONIN 5 MG TABLETS PO SCH (22:09)
[2020-06-16] MEDS ORDERED: METHADONE HCL 40 MG DISPERSABLE TABLET ONE (04:52)
[2020-06-16] MEDS ORDERED: METHADONE HCL 5 MG TABLET ONE (04:53)
[2020-06-16] MEDS ORDERED: METHADONE HCL 10 MG TABLET PO SCH (06:00)
[2020-06-16] MEDS: chlordiazePOXIDE HCL 25 MG CAPSULE PO SCH ×2 (06:57→10:04)
[2020-06-16] MEDS: METHADONE 160 MG, METHADONE 5 MG PO SCH (06:57)
[2020-06-16] MEDS: PRENATAL VITAMINS W/ FOLIC ACID TABLET (FP) PO SCH (10:04)
[2020-06-16] MEDS: METHOCARBAMOL 500 MG TABLET PO PRN ×2 (10:04→22:30)
[2020-06-16] MEDS: NICOTINE 7 MG/24 HOURS TOPICAL PATCH TD SCH (10:04)
[2020-06-16] MEDS: hydrOXYzine PAMOATE 25 MG CAPSULE (FP) PO PRN ×3 (10:06→22:30)
--- NOTE | 2020-06-16 15:19 | PN ---
S CIWA - CIWA Score Nausea/Vomitin-Mild Nausea/No Vomiting Muscle Tremors: 1-None Visible, but [place] Anxiety: 1-Mildly Anxious Agitation: 0-Normal Activity Paroxysmal Sweats: No Perspiration Orientation: 0-Oriented Tacttile Disturbances: 1-Very Mild Itch/Numbness Auditory Disturbances: 1-Very Mild Visual Disturbances: 1-Very Mild Sensitivity Headache: 1-Very Mild CIWA-Ar Total Score: 7 BHS Progress Note (SOAP) Subjective: 35 years old male was admitted on 06/12/20 for alcohol withdrawal sx management treating with librium detox regiment seen by psychiatrist no medical intervention less tremor mild anxiety encourage mr james to discuss aftercare with staff Objective: 06/16/20 15:24 Vital Signs - 24 hr 06/15/20 06/15/20 06/16/20 17:24 20:41 06:23 Temperature 97.5 F L 97.1 F L 97.9 F Pulse Rate 53 L 65 71 Respiratory 16 18 18 Rate Blood Pressure 96/55 L 95/62 99/56 L O2 Sat by Pulse 98 100 Oximetry (%) 06/16/20 06/16/20 08:37 12:26 Temperature 97.5 F L 97.7 F Pulse Rate 69 52 L Respiratory 18 18 Rate Blood Pressure 102/65 97/60 O2 Sat by Pulse 97 Oximetry (%) Laboratory Tests 06/14/20 06/15/20 06/15/20 20:30 08:00 08:00 WBC 6.7 RBC 4.26 Hgb 13.1 Hct 40.2 MCV 94.5 MCH 30.8 MCHC 32.7 RDW 14.8 Plt Count 194 D MPV 8.2 Sodium Potassium Chloride Carbon Dioxide Anion Gap BUN Creatinine Est GFR (CKD-EPI)AfAm Est GFR (CKD-EPI)NonAf Random Glucose Calcium Total Bilirubin AST ALT Alkaline Phosphatase Total Protein Albumin Syphilis Serology Non-reactive COVID-19 (ATIF) Not detected 06/15/20 08:00 WBC RBC Hgb Hct MCV MCH MCHC RDW Plt Count MPV Sodium 142 Potassium 4.3 Chloride 104 Carbon Dioxide 35 H Anion Gap 2 L BUN 12.9 Creatinine 0.9 Est GFR (CKD-EPI)AfAm 127.80 Est GFR (CKD-EPI)NonAf 110.27 Random Glucose 80 Calcium 8.8 Total Bilirubin 0.8 AST 137 H ALT 160 H Alkaline Phosphatase 75 Total Protein 6.5 Albumin 3.5 Syphilis Serology COVID-19 (ATIF) ast elevation discontinue librium regiment begin ativan for alcohol detox regiment 06/16/20 15:25 discontinue tylenal 06/16/20 15:37 Assessment: 06/16/20 15:37 alcohol withdrawal Plan: ativan regiment
[2020-06-16] MEDS ORDERED: LORazepam 1 MG TABLET PO PRN (15:28)
[2020-06-16] MEDS: LORazepam 2 MG TABLET PO SCH ×2 (18:06→22:30)
[2020-06-16] MEDS: THIAMINE HCL 100 MG TABLET (FP) PO SCH (22:30)
[2020-06-16] MEDS: MELATONIN 5 MG TABLETS PO SCH (22:31)
[2020-06-17] MEDS ORDERED: chlordiazePOXIDE HCL 10 MG CAPSULE PO PRN
[2020-06-17] MEDS ORDERED: chlordiazePOXIDE HCL 10 MG CAPSULE PO SCH (05:00)
[2020-06-17] MEDS ORDERED: METHADONE HCL 40 MG DISPERSABLE TABLET ONE (05:10)
[2020-06-17] MEDS ORDERED: METHADONE HCL 5 MG TABLET ONE (05:11)
[2020-06-17] MEDS: METHADONE 160 MG, METHADONE 5 MG PO SCH (06:35)
[2020-06-17] MEDS: LORazepam 1 MG TABLET PO SCH ×4 (06:35→22:18)
[2020-06-17] MEDS: METHOCARBAMOL 500 MG TABLET PO PRN (10:17)
[2020-06-17] MEDS: NICOTINE 7 MG/24 HOURS TOPICAL PATCH TD SCH (10:18)
[2020-06-17] MEDS: PRENATAL VITAMINS W/ FOLIC ACID TABLET (FP) PO SCH (10:18)
--- NOTE | 2020-06-17 10:41 | PN ---
S CIWA - CIWA Score Nausea/Vomitin-Mild Nausea/No Vomiting Muscle Tremors: 2 Anxiety: 2 Agitation: 2 Paroxysmal Sweats: No Perspiration Orientation: 0-Oriented Tacttile Disturbances: 0-None Auditory Disturbances: 0-None Visual Disturbances: 0-None Headache: 1-Very Mild CIWA-Ar Total Score: 8 BHS Progress Note (SOAP) Subjective: alert,irritable,anxious,interrupted sleep,aching pain Objective: 06/17/20 16:29 Vital Signs Temperature 98.2 F 06/17/20 13:02 Pulse Rate 67 06/17/20 13:02 Respiratory Rate 18 06/17/20 13:02 Blood Pressure 98/56 L 06/17/20 13:02 O2 Sat by Pulse Oximetry (%) 96 06/17/20 13:02 Laboratory Last Values WBC 6.7 K/mm3 (4.0-10.0) 06/15/20 08:00 RBC 4.26 M/mm3 (4.00-5.60) 06/15/20 08:00 Hgb 13.1 GM/dL (11.7-16.9) 06/15/20 08:00 Hct 40.2 % (35.4-49) 06/15/20 08:00 MCV 94.5 fl (80-96) 06/15/20 08:00 MCH 30.8 pg (25.7-33.7) 06/15/20 08:00 MCHC 32.7 g/dl (32.0-35.9) 06/15/20 08:00 RDW 14.8 % (11.9-15.9) 06/15/20 08:00 Plt Count 194 K/MM3 (134-434) D 06/15/20 08:00 MPV 8.2 fl (7.5-11.1) 06/15/20 08:00 Sodium 142 mmol/L (136-145) 06/15/20 08:00 Potassium 4.3 mmol/L (3.5-5.1) 06/15/20 08:00 Chloride 104 mmol/L (98-107) 06/15/20 08:00 Carbon Dioxide 35 mmol/L (21-32) H 06/15/20 08:00 Anion Gap 2 MMOL/L (8-16) L 06/15/20 08:00 BUN 12.9 mg/dL (7-18) 06/15/20 08:00 Creatinine 0.9 mg/dL (0.55-1.3) 06/15/20 08:00 Est GFR (CKD-EPI)AfAm 127.80 06/15/20 08:00 Est GFR (CKD-EPI)NonAf 110.27 06/15/20 08:00 Random Glucose 80 mg/dL (74-106) 06/15/20 08:00 Calcium 8.8 mg/dL (8.5-10.1) 06/15/20 08:00 Total Bilirubin 0.8 mg/dL (0.2-1) 06/15/20 08:00 AST 137 U/L (15-37) H 06/15/20 08:00 ALT 160 U/L (13-61) H 06/15/20 08:00 Alkaline Phosphatase 75 U/L (45-117) 06/15/20 08:00 Total Protein 6.5 g/dl (6.4-8.2) 06/15/20 08:00 Albumin 3.5 g/dl (3.4-5.0) 06/15/20 08:00 Syphilis Serology Non-reactive (NONREACTIVE) 06/15/20 08:00 COVID-19 (ATIF) Not detected (Not Detected) 06/14/20 20:30 Assessment: 06/17/20 16:29 withdrawal symptom Plan: continue detox ativan regimen,mmtp 165 mgs po daily maintenance,discharge in am
[2020-06-17] MEDS: THIAMINE HCL 100 MG TABLET (FP) PO SCH (22:18)
[2020-06-17] MEDS: hydrOXYzine PAMOATE 25 MG CAPSULE (FP) PO PRN (22:18)
[2020-06-17] MEDS: MELATONIN 5 MG TABLETS PO SCH (22:18)
[2020-06-18] MEDS ORDERED: LORazepam 0.5 MG TABLET PO PRN
[2020-06-18] MEDS ORDERED: METHADONE HCL 40 MG DISPERSABLE TABLET ONE (04:11)
[2020-06-18] MEDS ORDERED: METHADONE HCL 5 MG TABLET ONE (04:11)
[2020-06-18] MEDS ORDERED: chlordiazePOXIDE HCL 10 MG CAPSULE PO SCH (05:00)
[2020-06-18] MEDS: LORazepam 0.5 MG TABLET PO SCH ×2 (05:17→10:38)
[2020-06-18] MEDS: METHADONE 160 MG, METHADONE 5 MG PO SCH (05:18)
[2020-06-18] MEDS: hydrOXYzine PAMOATE 25 MG CAPSULE (FP) PO PRN ×2 (05:22→10:38)
--- NOTE | 2020-06-18 08:53 | PN ---
[facility] CIWA - CIWA Score Nausea/Vomitin-No Nausea/No Vomiting Muscle Tremors: None Anxiety: 1-Mildly Anxious Agitation: 0-Normal Activity Paroxysmal Sweats: No Perspiration Orientation: 0-Oriented Tacttile Disturbances: 0-None Auditory Disturbances: 0-None Visual Disturbances: 0-None Headache: 0-None Present CIWA-Ar Total Score: 1 S Progress Note (SOAP) Subjective: alert,no complaint Objective: 06/18/20 16:29 Vital Signs Temperature 98.4 F 06/18/20 09:15 Pulse Rate 62 06/18/20 09:15 Respiratory Rate 18 06/18/20 09:15 Blood Pressure 104/70 06/18/20 09:15 O2 Sat by Pulse Oximetry (%) 99 06/18/20 06:28 Assessment: 06/18/20 16:29 detox completed,o withdrawal symptom Plan: stable for discharge today,follow up with [facility]
--- NOTE | 2020-06-18 08:53 | DS ---
[facility] Detox Discharge Summary Admission Date: 06/14/20 Discharge Date: 06/18/20 - History Present History: Cannabis Dependence, Cocaine Dependence, Sedative Dependence, MMTP Additional Comments: alert,oriented x 3 ambulation on the unit lung clear on auscultation bilaterally abdomen soft,no pain no edema of legs detox completed,no withdrawal symptom stable for discharge today follow up with after care program rehab [facility] as arrangement lrft the unit in good and stable condition total time spending on discharge 35 minutes Pertinent Past History: anxiety disorder nicotine dependence - Physical Exam Results Vital Signs: Vital Signs Temperature 97.6 F 06/18/20 06:28 Pulse Rate 79 06/18/20 06:28 Respiratory Rate 16 06/18/20 06:28 Blood Pressure 100/54 L 06/18/20 06:28 O2 Sat by Pulse Oximetry (%) 99 06/18/20 06:28 Pertinent Admission Physical Exam Findings: withdrawal signs and symptom Laboratory Last Values WBC 6.7 K/mm3 (4.0-10.0) 06/15/20 08:00 RBC 4.26 M/mm3 (4.00-5.60) 06/15/20 08:00 Hgb 13.1 GM/dL (11.7-16.9) 06/15/20 08:00 Hct 40.2 % (35.4-49) 06/15/20 08:00 MCV 94.5 fl (80-96) 06/15/20 08:00 MCH 30.8 pg (25.7-33.7) 06/15/20 08:00 MCHC 32.7 g/dl (32.0-35.9) 06/15/20 08:00 RDW 14.8 % (11.9-15.9) 06/15/20 08:00 Plt Count 194 K/MM3 (134-434) D 06/15/20 08:00 MPV 8.2 fl (7.5-11.1) 06/15/20 08:00 Sodium 142 mmol/L (136-145) 06/15/20 08:00 Potassium 4.3 mmol/L (3.5-5.1) 06/15/20 08:00 Chloride 104 mmol/L (98-107) 06/15/20 08:00 Carbon Dioxide 35 mmol/L (21-32) H 06/15/20 08:00 Anion Gap 2 MMOL/L (8-16) L 06/15/20 08:00 BUN 12.9 mg/dL (7-18) 06/15/20 08:00 Creatinine 0.9 mg/dL (0.55-1.3) 06/15/20 08:00 Est GFR (CKD-EPI)AfAm 127.80 06/15/20 08:00 Est GFR (CKD-EPI)NonAf 110.27 06/15/20 08:00 Random Glucose 80 mg/dL (74-106) 06/15/20 08:00 Calcium 8.8 mg/dL (8.5-10.1) 06/15/20 08:00 Total Bilirubin 0.8 mg/dL (0.2-1) 06/15/20 08:00 AST 137 U/L (15-37) H 06/15/20 08:00 ALT 160 U/L (13-61) H 06/15/20 08:00 Alkaline Phosphatase 75 U/L (45-117) 06/15/20 08:00 Total Protein 6.5 g/dl (6.4-8.2) 06/15/20 08:00 Albumin 3.5 g/dl (3.4-5.0) 06/15/20 08:00 Syphilis Serology Non-reactive (NONREACTIVE) 06/15/20 08:00 COVID-19 (ATIF) Not detected (Not Detected) 06/14/20 20:30 Vital Signs Temperature 98.4 F 06/18/20 09:15 Pulse Rate 62 06/18/20 09:15 Respiratory Rate 18 06/18/20 09:15 Blood Pressure 104/70 06/18/20 09:15 O2 Sat by Pulse Oximetry (%) 99 06/18/20 06:28 - Treatment Hospital Course: Detox Protocol Followed, Detoxed Safely, Responded well, Discharged Condition Good, Rehab Referral Accepted Patient has Accepted a Rehab Referral to: [facility] - Medication Discharge Medications: Ambulatory Orders NK [No Known Home Medication] 02/05/17 - Diagnosis (1) Sedative/hypnotic withdrawal without complication Status: Acute (2) Weight loss Status: Acute (3) Anxiety disorder Status: Chronic Qualifiers: Anxiety disorder type: unspecified anxiety disorder Qualified Code(s): F41.9 - Anxiety disorder, unspecified (4) Methadone maintenance therapy patient Status: Chronic (5) Nicotine dependence Status: Chronic Qualifiers: Nicotine product type: cigarettes (6) Cannabis dependence Status: Chronic (7) Cocaine dependence Status: Chronic Qualifiers: Substance use status: uncomplicated Qualified Code(s): F14.20 - Cocaine dependence, uncomplicated - AMA Did Patient Leave Against Medical Advice: No
[2020-06-18 09:46] VITALS: BP 104/70; PULSE 62; TEMP 98.4
[2020-06-18] MEDS: PRENATAL VITAMINS W/ FOLIC ACID TABLET (FP) PO SCH (10:37)
[2020-06-18] MEDS: NICOTINE 7 MG/24 HOURS TOPICAL PATCH TD SCH (10:37)
[2020-06-19] MEDS ORDERED: chlordiazePOXIDE HCL 10 MG CAPSULE PO ONE (05:00)
[2020-06-19] MEDS ORDERED: LORazepam 0.5 MG TABLET PO ONE (05:00)
== END 2020-06-18 11:47 | disposition home or self-care (01) | DRG 773 ==
LOC: YASAS 18:18 → Y3N 20:22
PROVIDERS: ADMIT Allergy & Immunology; ATTEND Allergy & Immunology
PROC: HZ2ZZZZ Detoxification Services for Substance Abuse Treatment (ICD-10-PCS; principal; 2020-06-14)
DX: F10.230 Alcohol dependence with withdrawal, uncomplicated (principal); F13.230 Sedative, hypnotic or anxiolytic dependence with withdrawal, uncomplicated; F11.20 Opioid dependence, uncomplicated; F14.20 Cocaine dependence, uncomplicated; F12.20 Cannabis dependence, uncomplicated; F17.210 Nicotine dependence, cigarettes, uncomplicated; F19.24 Other psychoactive substance dependence with psychoactive substance-induced mood disorder; F31.9 Bipolar disorder, unspecified; F41.9 Anxiety disorder, unspecified; F43.10 Post-traumatic stress disorder, unspecified; R74.0 Nonspecific elevation of levels of transaminase and lactic acid dehydrogenase [LDH]; R63.4 Abnormal weight loss; Z68.23 Body mass index [BMI] 23.0-23.9, adult; Z56.0 Unemployment, unspecified; Z59.0 Homelessness
CPT/HCPCS: 36415; 80053; 85027; 86780; U0003

== ENCOUNTER 2020-09-09 15:18 | Inpatient (IN) | payer OTHER ==
[2020-09-09 16:53] VITALS: BMI 24.3
[2020-09-09] MEDS ORDERED: ONDANSETRON *ODT* 4 MG TABLET SL PRN (16:54)
[2020-09-09] MEDS ORDERED: MAG HYDROX/AL HYDROX/SIMETH 30 ML UNIT-DOSE CUP PO PRN (16:54)
[2020-09-09] MEDS ORDERED: METHOCARBAMOL 500 MG TABLET PO PRN (16:54)
[2020-09-09] MEDS ORDERED: NICOTINE POLACRILEX 2 MG GUM BUC PRN (16:54)
[2020-09-09] MEDS ORDERED: BISMUTH SUBSALICYLATE 524 MG/30 ML UD PO PRN (16:54)
[2020-09-09] MEDS ORDERED: MENTHOL/PHENOL 1 EACH UD MM PRN (16:54)
[2020-09-09] MEDS ORDERED: MAGNESIUM CITRATE 300 ML BOTTLE PO PRN (16:54)
[2020-09-09] MEDS ORDERED: MAGNESIUM HYDROX 2400MG/30ML ORAL SUSPENSION 30 ML CUP PO PRN (16:54)
[2020-09-09] MEDS ORDERED: chlordiazePOXIDE HCL 25 MG CAPSULE PO PRN (16:54)
[2020-09-09] MEDS ORDERED: ACETAMINOPHEN 325 MG TABLET (FP) PO PRN ×2 (16:54)
[2020-09-09] MEDS ORDERED: IBUPROFEN 400 MG TABLET (FP) PO PRN (16:54)
[2020-09-09] MEDS ORDERED: chlordiazePOXIDE HCL 25 MG CAPSULE PO SCH (17:00)
[2020-09-09] MEDS: hydrOXYzine PAMOATE 25 MG CAPSULE (FP) PO SCH ×2 (23:36→23:40)
[2020-09-09] MEDS: THIAMINE HCL 100 MG TABLET (FP) PO SCH (23:40)
[2020-09-09] MEDS: MELATONIN 5 MG TABLETS PO SCH (23:40)
[2020-09-09] MEDS: diazePAM 5 MG TABLET PO SCH (23:40)
[2020-09-10] MEDS: hydrOXYzine PAMOATE 25 MG CAPSULE (FP) PO SCH ×5 (06:51→22:23)
[2020-09-10] MEDS: diazePAM 5 MG TABLET PO SCH ×4 (06:51→22:23)
[2020-09-10] MEDS ORDERED: METHADONE HCL 10 MG TABLET PO SCH (10:15)
[2020-09-10 10:21] LABS: POTASSIUM 4.1 mmol/L (3.5-5.1)
[2020-09-10 10:23] LABS: HEMATOCRIT 38.1 % (35.4-49); HEMOGLOBIN 12.7 GM/dL (11.7-16.9); MCH 31.4 pg (25.7-33.7); MCHC 33.3 g/dl (32.0-35.9); MEAN CELL VOLUME 94.4 fl (80-96); MEAN PLT VOLUME 8.7 fl (7.5-11.1); PLATELET COUNT 187 K/MM3 (134-434); RBC 4.04 M/mm3 (4.00-5.60); RDW 13.6 % (11.9-15.9); WHITE BLOOD COUNT 6.9 K/mm3 (4.0-10.0)
[2020-09-10 10:25] LABS: CALCIUM 8.4 mg/dL (8.5-10.1)
[2020-09-10] MEDS ORDERED: METHADONE HCL 40 MG DISPERSABLE TABLET ONE (10:25)
[2020-09-10] MEDS ORDERED: METHADONE HCL 10 MG TABLET ONE (10:25)
[2020-09-10] MEDS ORDERED: METHADONE HCL 5 MG TABLET ONE (10:25)
[2020-09-10 10:26] LABS: ALBUMIN 3.1 g/dl (3.4-5.0); BLOOD UREA NITROGEN 8.9 mg/dL (7-18)
[2020-09-10] MEDS: PRENATAL VITAMINS W/ FOLIC ACID TABLET (FP) PO SCH (10:27)
[2020-09-10 10:29] LABS: CREATININE 0.7 mg/dL (0.55-1.3)
[2020-09-10] MEDS ORDERED: METHADONE 160 MG, METHADONE 10 MG, METHADONE 5 MG PO ONE (10:30)
[2020-09-10 10:31] LABS: TOT PROT 5.8 g/dl (6.4-8.2)
[2020-09-10] MEDS: NICOTINE 21 MG/24 HOURS TOPICAL PATCH TD SCH (10:31)
[2020-09-10 11:18] LABS: HIV INTERPRETATION NEGATIVE (NEGATIVE)
[2020-09-10] MEDS: THIAMINE HCL 100 MG TABLET (FP) PO SCH (22:23)
[2020-09-10] MEDS: MELATONIN 5 MG TABLETS PO SCH (22:23)
[2020-09-11] MEDS ORDERED: METHADONE HCL 10 MG TABLET ONE (04:42)
[2020-09-11] MEDS ORDERED: METHADONE HCL 40 MG DISPERSABLE TABLET ONE (04:43)
[2020-09-11] MEDS ORDERED: METHADONE HCL 5 MG TABLET ONE (04:43)
[2020-09-11] MEDS ORDERED: chlordiazePOXIDE HCL 25 MG CAPSULE PO SCH (05:00)
[2020-09-11] MEDS: METHADONE 160 MG, METHADONE 10 MG, METHADONE 5 MG PO SCH (05:50)
[2020-09-11] MEDS: hydrOXYzine PAMOATE 25 MG CAPSULE (FP) PO SCH ×5 (05:50→21:08)
[2020-09-11] MEDS: diazePAM 5 MG TABLET PO SCH ×3 (05:50→21:07)
[2020-09-11] MEDS: NICOTINE 21 MG/24 HOURS TOPICAL PATCH TD SCH (09:53)
[2020-09-11] MEDS: diazePAM 5 MG TABLET PO PRN ×2 (09:53→17:09)
[2020-09-11] MEDS: PRENATAL VITAMINS W/ FOLIC ACID TABLET (FP) PO SCH (09:53)
[2020-09-11] MEDS: THIAMINE HCL 100 MG TABLET (FP) PO SCH (21:08)
[2020-09-11] MEDS: MELATONIN 5 MG TABLETS PO SCH (21:08)
[2020-09-12] MEDS ORDERED: chlordiazePOXIDE HCL 10 MG CAPSULE PO PRN
[2020-09-12] MEDS ORDERED: METHADONE HCL 10 MG TABLET ONE (04:52)
[2020-09-12] MEDS ORDERED: METHADONE HCL 5 MG TABLET ONE (04:53)
[2020-09-12] MEDS ORDERED: METHADONE HCL 40 MG DISPERSABLE TABLET ONE (04:53)
[2020-09-12] MEDS ORDERED: chlordiazePOXIDE HCL 10 MG CAPSULE PO SCH (05:00)
[2020-09-12] MEDS: hydrOXYzine PAMOATE 25 MG CAPSULE (FP) PO SCH ×5 (05:17→22:02)
[2020-09-12] MEDS: METHADONE 160 MG, METHADONE 10 MG, METHADONE 5 MG PO SCH (05:17)
[2020-09-12] MEDS: diazePAM 5 MG TABLET PO SCH ×2 (05:17→17:16)
[2020-09-12] MEDS: diazePAM 5 MG TABLET PO PRN ×2 (08:44→12:38)
[2020-09-12] MEDS: NICOTINE 21 MG/24 HOURS TOPICAL PATCH TD SCH (09:13)
[2020-09-12] MEDS: PRENATAL VITAMINS W/ FOLIC ACID TABLET (FP) PO SCH (09:13)
[2020-09-12] MEDS ORDERED: diazePAM 5 MG TABLET PO ONE (22:00)
[2020-09-12] MEDS: MELATONIN 5 MG TABLETS PO SCH (22:03)
[2020-09-12] MEDS: THIAMINE HCL 100 MG TABLET (FP) PO SCH (22:03)
[2020-09-13] MEDS ORDERED: METHADONE HCL 5 MG TABLET ONE (04:12)
[2020-09-13] MEDS ORDERED: METHADONE HCL 40 MG DISPERSABLE TABLET ONE (04:12)
[2020-09-13] MEDS ORDERED: METHADONE HCL 10 MG TABLET ONE (04:12)
[2020-09-13] MEDS ORDERED: chlordiazePOXIDE HCL 10 MG CAPSULE PO SCH (05:00)
[2020-09-13] MEDS: METHADONE 160 MG, METHADONE 10 MG, METHADONE 5 MG PO SCH (05:19)
[2020-09-13] MEDS: hydrOXYzine PAMOATE 25 MG CAPSULE (FP) PO SCH (05:19)
[2020-09-13] MEDS ORDERED: diazePAM 5 MG TABLET PO ONE (06:00)
[2020-09-13 09:08] VITALS: BP 103/71; PULSE 89; TEMP 98.8
[2020-09-14] MEDS ORDERED: chlordiazePOXIDE HCL 10 MG CAPSULE PO ONE (05:00)
== END 2020-09-13 09:03 | disposition home or self-care (01) | DRG 773 ==
LOC: YASAS 15:18 → Y3N 16:57
PROVIDERS: ADMIT Allergy & Immunology; ATTEND Allergy & Immunology
PROC: HZ2ZZZZ Detoxification Services for Substance Abuse Treatment (ICD-10-PCS; principal; 2020-09-09)
DX: F11.23 Opioid dependence with withdrawal (principal); F10.230 Alcohol dependence with withdrawal, uncomplicated; F10.220 Alcohol dependence with intoxication, uncomplicated; F13.230 Sedative, hypnotic or anxiolytic dependence with withdrawal, uncomplicated; F17.213 Nicotine dependence, cigarettes, with withdrawal; F90.9 Attention-deficit hyperactivity disorder, unspecified type; F19.24 Other psychoactive substance dependence with psychoactive substance-induced mood disorder; F19.280 Other psychoactive substance dependence with psychoactive substance-induced anxiety disorder; F41.9 Anxiety disorder, unspecified; R74.01 Elevation of levels of liver transaminase levels; S90.112A Contusion of left great toe without damage to nail, initial encounter; X58.XXXA Exposure to other specified factors, initial encounter; Y93.9 Activity, unspecified; Y92.9 Unspecified place or not applicable
CPT/HCPCS: 36415; 80053; 85027; 86780; 87389; C9803; U0003

== ENCOUNTER 2020-09-09 18:32 | Emergency (ER) | payer OTHER ==
[2020-09-09 18:50] VITALS: BMI 25.0
[2020-09-09 22:37] VITALS: BP 109/56; PULSE 94; TEMP 98.3
== END 2020-09-09 22:59 | disposition home or self-care (01) ==
LOC: JER 18:32
DX: S90.822A Blister (nonthermal), left foot, initial encounter (principal)
CPT/HCPCS: 93970-TC; 99284-25

== ENCOUNTER 2020-10-01 12:16 | Inpatient (IN) | payer OTHER ==
[2020-10-01 15:24] VITALS: BMI 24.0
[2020-10-01] MEDS ORDERED: MAGNESIUM HYDROX 2400MG/30ML ORAL SUSPENSION 30 ML CUP PO PRN (17:08)
[2020-10-01] MEDS ORDERED: NICOTINE POLACRILEX 2 MG GUM BUC PRN (17:08)
[2020-10-01] MEDS ORDERED: MENTHOL/PHENOL 1 EACH UD MM PRN (17:08)
[2020-10-01] MEDS ORDERED: ACETAMINOPHEN 325 MG TABLET (FP) PO PRN ×2 (17:08)
[2020-10-01] MEDS ORDERED: IBUPROFEN 400 MG TABLET (FP) PO PRN (17:08)
[2020-10-01] MEDS ORDERED: ONDANSETRON *ODT* 4 MG TABLET SL PRN (17:08)
[2020-10-01] MEDS ORDERED: MAG HYDROX/AL HYDROX/SIMETH 30 ML UNIT-DOSE CUP PO PRN (17:08)
[2020-10-01] MEDS ORDERED: BISMUTH SUBSALICYLATE 524 MG/30 ML UD PO PRN (17:08)
[2020-10-01] MEDS ORDERED: MAGNESIUM CITRATE 300 ML BOTTLE PO PRN (17:08)
[2020-10-01] MEDS ORDERED: METHADONE HCL 40 MG DISPERSABLE TABLET PO SCH (17:15)
[2020-10-01] MEDS ORDERED: METHADONE HCL 10 MG TABLET ONE (17:39)
[2020-10-01] MEDS ORDERED: METHADONE HCL 40 MG DISPERSABLE TABLET ONE (17:40)
[2020-10-01] MEDS ORDERED: METHADONE HCL 5 MG TABLET ONE (17:40)
[2020-10-01] MEDS: METHADONE 160 MG, METHADONE 10 MG, METHADONE 5 MG PO SCH (17:45)
[2020-10-01] MEDS ORDERED: chlordiazePOXIDE HCL 25 MG CAPSULE ONE (20:55)
[2020-10-01] MEDS: chlordiazePOXIDE HCL 25 MG CAPSULE PO PRN (20:56)
[2020-10-01] MEDS: chlordiazePOXIDE HCL 25 MG CAPSULE PO SCH (23:40)
[2020-10-01] MEDS: MELATONIN 5 MG TABLETS PO SCH (23:41)
[2020-10-01] MEDS: THIAMINE HCL 100 MG TABLET (FP) PO SCH (23:41)
[2020-10-02] MEDS ORDERED: chlordiazePOXIDE HCL 25 MG CAPSULE ONE (05:54)
[2020-10-02] MEDS: chlordiazePOXIDE HCL 25 MG CAPSULE PO SCH ×4 (06:11→22:09)
[2020-10-02] MEDS ORDERED: METHADONE HCL 10 MG TABLET ONE (06:39)
[2020-10-02] MEDS ORDERED: METHADONE HCL 40 MG DISPERSABLE TABLET ONE (06:40)
[2020-10-02] MEDS ORDERED: METHADONE HCL 5 MG TABLET ONE (06:41)
[2020-10-02] MEDS: METHADONE 160 MG, METHADONE 10 MG, METHADONE 5 MG PO SCH (06:48)
[2020-10-02] MEDS: NICOTINE 21 MG/24 HOURS TOPICAL PATCH TD SCH (11:00)
[2020-10-02] MEDS: PRENATAL VITAMINS W/ FOLIC ACID TABLET (FP) PO SCH (11:00)
[2020-10-02 11:29] LABS: HEMATOCRIT 37.9 % (35.4-49); HEMOGLOBIN 12.4 GM/dL (11.7-16.9); MCHC 32.7 g/dl (32.0-35.9); MEAN CELL VOLUME 94.8 fl (80-96); MEAN PLT VOLUME 8.7 fl (7.5-11.1); PLATELET COUNT 225 K/MM3 (134-434); RDW 13.8 % (11.9-15.9); WHITE BLOOD COUNT 6.9 K/mm3 (4.0-10.0)
[2020-10-02 11:35] LABS: CALCIUM 8.6 mg/dL (8.5-10.1)
[2020-10-02 11:36] LABS: BLOOD UREA NITROGEN 9.9 mg/dL (7-18)
[2020-10-02 11:39] LABS: BILIRUBIN,TOTAL 1.1 mg/dL (0.2-1); CREATININE 0.7 mg/dL (0.55-1.3); TOT PROT 5.9 g/dl (6.4-8.2)
[2020-10-02 12:23] LABS: HIV INTERPRETATION NEGATIVE (NEGATIVE)
[2020-10-02] MEDS: chlordiazePOXIDE HCL 25 MG CAPSULE PO PRN (14:54)
[2020-10-02] MEDS: MELATONIN 5 MG TABLETS PO SCH (22:08)
[2020-10-02] MEDS: THIAMINE HCL 100 MG TABLET (FP) PO SCH (22:09)
[2020-10-02] MEDS: METHOCARBAMOL 500 MG TABLET PO PRN (22:09)
[2020-10-03] MEDS ORDERED: METHADONE HCL 40 MG DISPERSABLE TABLET ONE (04:14)
[2020-10-03] MEDS ORDERED: METHADONE HCL 10 MG TABLET ONE (04:14)
[2020-10-03] MEDS ORDERED: METHADONE HCL 5 MG TABLET ONE (04:14)
[2020-10-03] MEDS: METHADONE 160 MG, METHADONE 10 MG, METHADONE 5 MG PO SCH (05:39)
[2020-10-03] MEDS: chlordiazePOXIDE HCL 25 MG CAPSULE PO SCH ×4 (05:39→22:01)
[2020-10-03] MEDS: NICOTINE 21 MG/24 HOURS TOPICAL PATCH TD SCH (10:13)
[2020-10-03] MEDS: PRENATAL VITAMINS W/ FOLIC ACID TABLET (FP) PO SCH (10:14)
[2020-10-03] MEDS ORDERED: FLU VACCINE (FLULAVAL) PF 60 MCG/0.5 ML SYRINGE 2020-2021 IM ONE (12:00)
[2020-10-03] MEDS: hydrOXYzine PAMOATE 25 MG CAPSULE (FP) PO PRN (17:22)
[2020-10-03] MEDS: METHOCARBAMOL 500 MG TABLET PO PRN (20:28)
[2020-10-03] MEDS: THIAMINE HCL 100 MG TABLET (FP) PO SCH (22:01)
[2020-10-03] MEDS: MELATONIN 5 MG TABLETS PO SCH (22:01)
[2020-10-04] MEDS ORDERED: chlordiazePOXIDE HCL 10 MG CAPSULE PO PRN
[2020-10-04] MEDS ORDERED: METHADONE HCL 10 MG TABLET ONE (02:54)
[2020-10-04] MEDS ORDERED: METHADONE HCL 5 MG TABLET ONE (02:54)
[2020-10-04] MEDS ORDERED: METHADONE HCL 40 MG DISPERSABLE TABLET ONE (02:54)
[2020-10-04] MEDS: METHADONE 160 MG, METHADONE 10 MG, METHADONE 5 MG PO SCH (06:15)
[2020-10-04] MEDS: chlordiazePOXIDE HCL 10 MG CAPSULE PO SCH ×4 (06:15→22:05)
[2020-10-04] MEDS: NICOTINE 21 MG/24 HOURS TOPICAL PATCH TD SCH (10:05)
[2020-10-04] MEDS: PRENATAL VITAMINS W/ FOLIC ACID TABLET (FP) PO SCH (10:09)
[2020-10-04 11:08] LABS: ALBUMIN 2.8 g/dl (3.4-5.0)
[2020-10-04 11:10] LABS: BILIRUBIN,DIRECT 0.1 mg/dL (0.0-0.2)
[2020-10-04 11:12] LABS: BILIRUBIN,TOTAL 0.6 mg/dL (0.2-1)
[2020-10-04 11:13] LABS: TOT PROT 5.5 g/dl (6.4-8.2)
[2020-10-04] MEDS: THIAMINE HCL 100 MG TABLET (FP) PO SCH (22:04)
[2020-10-04] MEDS: hydrOXYzine PAMOATE 25 MG CAPSULE (FP) PO PRN (22:04)
[2020-10-04] MEDS: MELATONIN 5 MG TABLETS PO SCH (22:04)
[2020-10-04] MEDS: METHOCARBAMOL 500 MG TABLET PO PRN (22:07)
[2020-10-05] MEDS ORDERED: METHADONE HCL 10 MG TABLET ONE (04:13)
[2020-10-05] MEDS ORDERED: METHADONE HCL 40 MG DISPERSABLE TABLET ONE (04:14)
[2020-10-05] MEDS ORDERED: METHADONE HCL 5 MG TABLET ONE (04:14)
[2020-10-05] MEDS: chlordiazePOXIDE HCL 10 MG CAPSULE PO SCH ×2 (07:24→17:01)
[2020-10-05] MEDS: METHADONE 160 MG, METHADONE 10 MG, METHADONE 5 MG PO SCH (07:25)
[2020-10-05] MEDS: NICOTINE 21 MG/24 HOURS TOPICAL PATCH TD SCH (10:46)
[2020-10-05] MEDS: PRENATAL VITAMINS W/ FOLIC ACID TABLET (FP) PO SCH (10:48)
[2020-10-05] MEDS: hydrOXYzine PAMOATE 25 MG CAPSULE (FP) PO PRN ×2 (11:19→22:13)
[2020-10-05] MEDS: METHOCARBAMOL 500 MG TABLET PO PRN (17:02)
[2020-10-05] MEDS ORDERED: MASKS NR ONE (22:12)
[2020-10-05] MEDS: MELATONIN 5 MG TABLETS PO SCH (22:13)
[2020-10-05] MEDS: THIAMINE HCL 100 MG TABLET (FP) PO SCH (22:13)
[2020-10-06] MEDS ORDERED: METHADONE HCL 40 MG DISPERSABLE TABLET ONE (04:10)
[2020-10-06] MEDS ORDERED: METHADONE HCL 10 MG TABLET ONE (04:10)
[2020-10-06] MEDS ORDERED: METHADONE HCL 5 MG TABLET ONE (04:11)
[2020-10-06] MEDS ORDERED: chlordiazePOXIDE HCL 10 MG CAPSULE PO ONE (05:00)
[2020-10-06] MEDS: METHADONE 160 MG, METHADONE 10 MG, METHADONE 5 MG PO SCH (05:46)
[2020-10-06 09:22] VITALS: BP 94/54; PULSE 65; TEMP 98.2
== END 2020-10-06 09:18 | disposition home or self-care (01) | DRG 773 ==
LOC: YASAS 12:16 → Y3N 10-02 10:27
PROVIDERS: ADMIT Allergy & Immunology; ATTEND Allergy & Immunology
PROC: HZ2ZZZZ Detoxification Services for Substance Abuse Treatment (ICD-10-PCS; principal; 2020-10-02)
DX: F11.23 Opioid dependence with withdrawal (principal); F10.230 Alcohol dependence with withdrawal, uncomplicated; F13.20 Sedative, hypnotic or anxiolytic dependence, uncomplicated; F14.20 Cocaine dependence, uncomplicated; F16.20 Hallucinogen dependence, uncomplicated; F12.20 Cannabis dependence, uncomplicated; F17.210 Nicotine dependence, cigarettes, uncomplicated; F19.280 Other psychoactive substance dependence with psychoactive substance-induced anxiety disorder; F19.24 Other psychoactive substance dependence with psychoactive substance-induced mood disorder; F34.1 Dysthymic disorder; F41.9 Anxiety disorder, unspecified; F90.9 Attention-deficit hyperactivity disorder, unspecified type; F43.10 Post-traumatic stress disorder, unspecified; G47.00 Insomnia, unspecified; R94.5 Abnormal results of liver function studies; Y09 Assault by unspecified means
CPT/HCPCS: 36415; 80053; 80076; 85027; 86780; 87389; 93005; 93010; C9803; G0008; Q2036; U0003

== ENCOUNTER 2020-12-16 17:00 | Inpatient (IN) | payer OTHER ==
[2020-12-16] MEDS ORDERED: MAGNESIUM HYDROX 2400MG/30ML ORAL SUSPENSION 30 ML CUP PO PRN (18:39)
[2020-12-16] MEDS ORDERED: BISMUTH SUBSALICYLATE 524 MG/30 ML UD PO PRN (18:39)
[2020-12-16] MEDS ORDERED: ONDANSETRON *ODT* 4 MG TABLET SL PRN (18:39)
[2020-12-16] MEDS ORDERED: IBUPROFEN 400 MG TABLET (FP) PO PRN (18:39)
[2020-12-16] MEDS ORDERED: MAGNESIUM CITRATE 300 ML BOTTLE PO PRN (18:39)
[2020-12-16] MEDS ORDERED: ACETAMINOPHEN 325 MG TABLET (FP) PO PRN ×2 (18:39)
[2020-12-16] MEDS ORDERED: NICOTINE POLACRILEX 2 MG GUM BUC PRN (18:39)
[2020-12-16] MEDS ORDERED: MENTHOL/PHENOL 1 EACH UD MM PRN (18:39)
[2020-12-16] MEDS ORDERED: MAG HYDROX/AL HYDROX/SIMETH 30 ML UNIT-DOSE CUP PO PRN (18:39)
[2020-12-16 18:45] VITALS: BMI 23.5
[2020-12-16] MEDS: diazePAM 5 MG TABLET PO SCH (22:44)
[2020-12-16] MEDS: MELATONIN 5 MG TABLETS PO SCH (22:45)
[2020-12-16] MEDS: THIAMINE HCL 100 MG TABLET (FP) PO SCH (22:45)
[2020-12-17] MEDS: diazePAM 5 MG TABLET PO SCH ×4 (06:24→23:19)
[2020-12-17] MEDS ORDERED: METHADONE HCL 10 MG TABLET PO SCH (08:30)
[2020-12-17] MEDS ORDERED: METHADONE 160 MG, METHADONE 10 MG, METHADONE 5 MG PO ONE (08:45)
[2020-12-17] MEDS ORDERED: METHADONE HCL 10 MG TABLET ONE (10:24)
[2020-12-17] MEDS ORDERED: METHADONE HCL 40 MG DISPERSABLE TABLET ONE (10:25)
[2020-12-17] MEDS ORDERED: METHADONE HCL 5 MG TABLET ONE (10:25)
[2020-12-17] MEDS: PRENATAL VITAMINS W/ FOLIC ACID TABLET (FP) PO SCH (10:32)
[2020-12-17] MEDS: NICOTINE 14 MG/24 HOURS TOPICAL PATCH TD SCH (10:32)
[2020-12-17 10:51] LABS: POTASSIUM 4.4 mmol/L (3.5-5.1)
[2020-12-17 10:54] LABS: CALCIUM 8.7 mg/dL (8.5-10.1)
[2020-12-17 10:55] LABS: ALBUMIN 2.9 g/dl (3.4-5.0); BLOOD UREA NITROGEN 11.4 mg/dL (7-18)
[2020-12-17 10:57] LABS: HEMATOCRIT 39.3 % (35.4-49); HEMOGLOBIN 13.1 GM/dL (11.7-16.9); MCH 30.4 pg (25.7-33.7); MCHC 33.4 g/dl (32.0-35.9); MEAN CELL VOLUME 90.8 fl (80-96); MEAN PLT VOLUME 8.5 fl (7.5-11.1); PLATELET COUNT 208 K/MM3 (134-434); RBC 4.32 M/mm3 (4.00-5.60); RDW 14.3 % (11.9-15.9); WHITE BLOOD COUNT 5.9 K/mm3 (4.0-10.0)
[2020-12-17 10:58] LABS: CREATININE 0.7 mg/dL (0.55-1.3)
[2020-12-17 11:00] LABS: BILIRUBIN,TOTAL 1.6 mg/dL (0.2-1)
[2020-12-17 11:01] LABS: TOT PROT 5.8 g/dl (6.4-8.2)
[2020-12-17] MEDS: diazePAM 5 MG TABLET PO PRN (13:59)
[2020-12-17] MEDS: MELATONIN 5 MG TABLETS PO SCH (23:19)
[2020-12-17] MEDS: THIAMINE HCL 100 MG TABLET (FP) PO SCH (23:19)
[2020-12-17] MEDS: METHOCARBAMOL 500 MG TABLET PO PRN (23:20)
[2020-12-18] MEDS ORDERED: METHADONE HCL 10 MG TABLET ONE (05:16)
[2020-12-18] MEDS ORDERED: METHADONE HCL 40 MG DISPERSABLE TABLET ONE (05:17)
[2020-12-18] MEDS ORDERED: METHADONE HCL 5 MG TABLET ONE (05:17)
[2020-12-18] MEDS: METHADONE 160 MG, METHADONE 10 MG, METHADONE 5 MG PO SCH (05:23)
[2020-12-18] MEDS: diazePAM 5 MG TABLET PO SCH ×3 (05:23→23:00)
[2020-12-18] MEDS: NICOTINE 14 MG/24 HOURS TOPICAL PATCH TD SCH (10:05)
[2020-12-18] MEDS: diazePAM 5 MG TABLET PO PRN ×3 (10:05→20:27)
[2020-12-18] MEDS: PRENATAL VITAMINS W/ FOLIC ACID TABLET (FP) PO SCH (10:05)
[2020-12-18] MEDS: MELATONIN 5 MG TABLETS PO SCH (22:35)
[2020-12-18] MEDS: THIAMINE HCL 100 MG TABLET (FP) PO SCH (22:35)
[2020-12-18] MEDS: METHOCARBAMOL 500 MG TABLET PO PRN (22:37)
[2020-12-19] MEDS: diazePAM 5 MG TABLET PO PRN ×3 (01:34→15:51)
[2020-12-19] MEDS ORDERED: METHADONE HCL 10 MG TABLET ONE (03:33)
[2020-12-19] MEDS ORDERED: METHADONE HCL 40 MG DISPERSABLE TABLET ONE (03:33)
[2020-12-19] MEDS ORDERED: METHADONE HCL 5 MG TABLET ONE (03:33)
[2020-12-19] MEDS: METHADONE 160 MG, METHADONE 10 MG, METHADONE 5 MG PO SCH (05:50)
[2020-12-19] MEDS: diazePAM 5 MG TABLET PO SCH ×2 (05:50→18:36)
[2020-12-19] MEDS: METHOCARBAMOL 500 MG TABLET PO PRN (05:52)
[2020-12-19] MEDS: NICOTINE 14 MG/24 HOURS TOPICAL PATCH TD SCH (10:03)
[2020-12-19] MEDS: PRENATAL VITAMINS W/ FOLIC ACID TABLET (FP) PO SCH (10:03)
[2020-12-19] MEDS: MELATONIN 5 MG TABLETS PO SCH (23:14)
[2020-12-19] MEDS: THIAMINE HCL 100 MG TABLET (FP) PO SCH (23:14)
[2020-12-20] MEDS ORDERED: METHADONE HCL 10 MG TABLET ONE (04:39)
[2020-12-20] MEDS ORDERED: METHADONE HCL 40 MG DISPERSABLE TABLET ONE (04:40)
[2020-12-20] MEDS ORDERED: METHADONE HCL 5 MG TABLET ONE (04:41)
[2020-12-20] MEDS ORDERED: diazePAM 5 MG TABLET PO ONE (06:00)
[2020-12-20] MEDS: METHADONE 160 MG, METHADONE 10 MG, METHADONE 5 MG PO SCH (07:14)
[2020-12-20 09:00] VITALS: BP 116/77; PULSE 83; TEMP 97.5
[2020-12-20] MEDS: PRENATAL VITAMINS W/ FOLIC ACID TABLET (FP) PO SCH (10:19)
[2020-12-20] MEDS: NICOTINE 14 MG/24 HOURS TOPICAL PATCH TD SCH (10:20)
== END 2020-12-20 12:41 | disposition other institution (70) | DRG 773 ==
LOC: YASAS 17:00 → Y6N 19:28
PROVIDERS: ADMIT Allergy & Immunology; ATTEND Allergy & Immunology
PROC: HZ2ZZZZ Detoxification Services for Substance Abuse Treatment (ICD-10-PCS; principal; 2020-12-16)
DX: F13.230 Sedative, hypnotic or anxiolytic dependence with withdrawal, uncomplicated (principal); F11.20 Opioid dependence, uncomplicated; F10.20 Alcohol dependence, uncomplicated; F14.20 Cocaine dependence, uncomplicated; F17.210 Nicotine dependence, cigarettes, uncomplicated; F19.280 Other psychoactive substance dependence with psychoactive substance-induced anxiety disorder; F19.282 Other psychoactive substance dependence with psychoactive substance-induced sleep disorder; F41.9 Anxiety disorder, unspecified; F43.10 Post-traumatic stress disorder, unspecified; B18.2 Chronic viral hepatitis C; Z56.0 Unemployment, unspecified; Z59.0 Homelessness
CPT/HCPCS: 36415; 80053; 85027; 86780; C9803; U0003; U0005

== ENCOUNTER 2020-12-20 12:53 | Inpatient (IN) | payer OTHER ==
[2020-12-20] MEDS ORDERED: guaiFENesin 200 MG/10 ML 10 ML UNIT-DOSE CUPS PO PRN (14:26)
[2020-12-20] MEDS ORDERED: ACETAMINOPHEN 325 MG TABLET (FP) PO PRN (14:26)
[2020-12-20] MEDS ORDERED: MAG HYDROX/AL HYDROX/SIMETH 30 ML UNIT-DOSE CUP PO PRN (14:26)
[2020-12-20] MEDS ORDERED: MAGNESIUM HYDROX 2400MG/30ML ORAL SUSPENSION 30 ML CUP PO PRN (14:26)
[2020-12-20] MEDS ORDERED: NICOTINE POLACRILEX 2 MG GUM BUC PRN (14:26)
[2020-12-20] MEDS ORDERED: P-EPHED 60MG/TRIPROLIDI 2.5MG TABLET PO PRN (14:26)
[2020-12-20] MEDS ORDERED: MENTHOL/PHENOL 1 EACH UD MM PRN (14:26)
[2020-12-20] MEDS ORDERED: LOPERAMIDE HCL 2 MG CAPSULE PO PRN (14:26)
[2020-12-20] MEDS ORDERED: MAGNESIUM CITRATE 300 ML BOTTLE PO PRN (14:26)
[2020-12-20] MEDS: MELATONIN 5 MG TABLETS PO SCH (21:32)
[2020-12-20] MEDS: THIAMINE HCL 100 MG TABLET (FP) PO SCH (21:32)
[2020-12-20] MEDS: hydrOXYzine PAMOATE 25 MG CAPSULE (FP) PO PRN (21:33)
[2020-12-20] MEDS: IBUPROFEN 400 MG TABLET (FP) PO PRN (23:00)
[2020-12-21] MEDS ORDERED: METHADONE HCL 10 MG TABLET PO SCH (07:30)
[2020-12-21] MEDS ORDERED: METHADONE HCL 5 MG TABLET ONE (07:36)
[2020-12-21] MEDS ORDERED: METHADONE HCL 10 MG TABLET ONE (07:36)
[2020-12-21] MEDS: METHADONE 160 MG, METHADONE 10 MG, METHADONE 5 MG PO SCH (07:37)
[2020-12-21] MEDS ORDERED: METHADONE HCL 40 MG DISPERSABLE TABLET ONE (07:37)
[2020-12-21] MEDS: PRENATAL VITAMINS W/ FOLIC ACID TABLET (FP) PO SCH (09:33)
[2020-12-21] MEDS: NICOTINE 7 MG/24 HOURS TOPICAL PATCH TD SCH (09:33)
[2020-12-21] MEDS: hydrOXYzine PAMOATE 25 MG CAPSULE (FP) PO PRN (09:34)
[2020-12-21] MEDS: ESCITALOPRAM OXALATE 10 MG TABLET PO SCH (11:36)
[2020-12-21 15:41] LABS: HIV INTERPRETATION NEGATIVE (NEGATIVE)
[2020-12-21] MEDS: MELATONIN 5 MG TABLETS PO SCH (21:40)
[2020-12-21] MEDS: IBUPROFEN 400 MG TABLET (FP) PO PRN (21:41)
[2020-12-21] MEDS: THIAMINE HCL 100 MG TABLET (FP) PO SCH (21:42)
[2020-12-21] MEDS: hydrOXYzine PAMOATE 50 MG CAPSULE (FP) PO PRN (21:43)
[2020-12-22] MEDS ORDERED: METHADONE HCL 5 MG TABLET ONE (05:53)
[2020-12-22] MEDS ORDERED: METHADONE HCL 40 MG DISPERSABLE TABLET ONE (05:54)
[2020-12-22] MEDS ORDERED: METHADONE HCL 10 MG TABLET ONE (05:54)
[2020-12-22] MEDS: METHADONE 160 MG, METHADONE 10 MG, METHADONE 5 MG PO SCH (06:28)
[2020-12-22] MEDS: PRENATAL VITAMINS W/ FOLIC ACID TABLET (FP) PO SCH (09:20)
[2020-12-22] MEDS: NICOTINE 7 MG/24 HOURS TOPICAL PATCH TD SCH (09:20)
[2020-12-22] MEDS: ESCITALOPRAM OXALATE 10 MG TABLET PO SCH (09:21)
[2020-12-22] MEDS: hydrOXYzine PAMOATE 50 MG CAPSULE (FP) PO PRN ×2 (09:21→21:33)
[2020-12-22] MEDS ORDERED: DOCUSATE SODIUM 100 MG CAPSULE (FP) PO ONE (10:06)
[2020-12-22] MEDS: DOCUSATE SODIUM 100 MG CAPSULE (FP) PO SCH ×2 (14:23→21:31)
[2020-12-22] MEDS: MELATONIN 5 MG TABLETS PO SCH (21:31)
[2020-12-22] MEDS: THIAMINE HCL 100 MG TABLET (FP) PO SCH (21:31)
[2020-12-22] MEDS: IBUPROFEN 400 MG TABLET (FP) PO PRN (21:33)
[2020-12-23] MEDS ORDERED: METHADONE HCL 5 MG TABLET ONE (05:46)
[2020-12-23] MEDS ORDERED: METHADONE HCL 10 MG TABLET ONE (05:47)
[2020-12-23] MEDS ORDERED: METHADONE HCL 40 MG DISPERSABLE TABLET ONE (05:47)
[2020-12-23] MEDS: METHADONE 160 MG, METHADONE 10 MG, METHADONE 5 MG PO SCH (05:48)
[2020-12-23] MEDS: DOCUSATE SODIUM 100 MG CAPSULE (FP) PO SCH ×3 (05:48→21:05)
[2020-12-23] MEDS: hydrOXYzine PAMOATE 50 MG CAPSULE (FP) PO PRN ×4 (07:33→21:08)
[2020-12-23] MEDS: ESCITALOPRAM OXALATE 10 MG TABLET PO SCH (09:48)
[2020-12-23] MEDS: PRENATAL VITAMINS W/ FOLIC ACID TABLET (FP) PO SCH (09:48)
[2020-12-23] MEDS: NICOTINE 7 MG/24 HOURS TOPICAL PATCH TD SCH (09:49)
[2020-12-23] MEDS: THIAMINE HCL 100 MG TABLET (FP) PO SCH (21:05)
[2020-12-23] MEDS: IBUPROFEN 400 MG TABLET (FP) PO PRN (21:05)
[2020-12-23] MEDS: MELATONIN 5 MG TABLETS PO SCH (21:06)
[2020-12-24] MEDS ORDERED: METHADONE HCL 10 MG TABLET ONE (03:29)
[2020-12-24] MEDS ORDERED: METHADONE HCL 40 MG DISPERSABLE TABLET ONE (03:29)
[2020-12-24] MEDS ORDERED: METHADONE HCL 5 MG TABLET ONE (03:29)
[2020-12-24] MEDS: METHADONE 160 MG, METHADONE 10 MG, METHADONE 5 MG PO SCH (06:27)
[2020-12-24] MEDS: DOCUSATE SODIUM 100 MG CAPSULE (FP) PO SCH ×3 (06:29→21:11)
[2020-12-24] MEDS: hydrOXYzine PAMOATE 50 MG CAPSULE (FP) PO PRN ×3 (08:24→21:13)
[2020-12-24] MEDS: NICOTINE 7 MG/24 HOURS TOPICAL PATCH TD SCH (09:38)
[2020-12-24] MEDS: PRENATAL VITAMINS W/ FOLIC ACID TABLET (FP) PO SCH (09:38)
[2020-12-24] MEDS: ESCITALOPRAM OXALATE 10 MG TABLET PO SCH (09:38)
[2020-12-24] MEDS: MELATONIN 5 MG TABLETS PO SCH (21:11)
[2020-12-24] MEDS: THIAMINE HCL 100 MG TABLET (FP) PO SCH (21:12)
[2020-12-24] MEDS: IBUPROFEN 400 MG TABLET (FP) PO PRN (21:13)
[2020-12-25] MEDS ORDERED: METHADONE HCL 5 MG TABLET ONE (03:24)
[2020-12-25] MEDS ORDERED: METHADONE HCL 40 MG DISPERSABLE TABLET ONE (03:25)
[2020-12-25] MEDS ORDERED: METHADONE HCL 10 MG TABLET ONE (03:25)
[2020-12-25] MEDS: METHADONE 160 MG, METHADONE 10 MG, METHADONE 5 MG PO SCH (06:09)
[2020-12-25] MEDS: DOCUSATE SODIUM 100 MG CAPSULE (FP) PO SCH ×3 (06:09→21:12)
[2020-12-25] MEDS: hydrOXYzine PAMOATE 50 MG CAPSULE (FP) PO PRN ×3 (08:38→21:13)
[2020-12-25] MEDS: ESCITALOPRAM OXALATE 10 MG TABLET PO SCH (10:21)
[2020-12-25] MEDS: PRENATAL VITAMINS W/ FOLIC ACID TABLET (FP) PO SCH (10:21)
[2020-12-25] MEDS: NICOTINE 7 MG/24 HOURS TOPICAL PATCH TD SCH (10:21)
[2020-12-25] MEDS: MELATONIN 5 MG TABLETS PO SCH (21:12)
[2020-12-25] MEDS: THIAMINE HCL 100 MG TABLET (FP) PO SCH (21:12)
[2020-12-25] MEDS: IBUPROFEN 400 MG TABLET (FP) PO PRN (23:14)
[2020-12-26] MEDS ORDERED: METHADONE HCL 5 MG TABLET ONE (05:22)
[2020-12-26] MEDS ORDERED: METHADONE HCL 40 MG DISPERSABLE TABLET ONE (05:22)
[2020-12-26] MEDS ORDERED: METHADONE HCL 10 MG TABLET ONE (05:22)
[2020-12-26] MEDS: METHADONE 160 MG, METHADONE 10 MG, METHADONE 5 MG PO SCH (06:00)
[2020-12-26] MEDS: DOCUSATE SODIUM 100 MG CAPSULE (FP) PO SCH ×3 (06:00→21:16)
[2020-12-26] MEDS: hydrOXYzine PAMOATE 50 MG CAPSULE (FP) PO PRN ×3 (07:10→21:18)
[2020-12-26] MEDS: ESCITALOPRAM OXALATE 10 MG TABLET PO SCH (10:09)
[2020-12-26] MEDS: NICOTINE 7 MG/24 HOURS TOPICAL PATCH TD SCH (10:09)
[2020-12-26] MEDS: PRENATAL VITAMINS W/ FOLIC ACID TABLET (FP) PO SCH (10:09)
[2020-12-26] MEDS: THIAMINE HCL 100 MG TABLET (FP) PO SCH (21:15)
[2020-12-26] MEDS: IBUPROFEN 400 MG TABLET (FP) PO PRN (21:16)
[2020-12-26] MEDS: MELATONIN 5 MG TABLETS PO SCH (21:16)
[2020-12-27] MEDS ORDERED: METHADONE HCL 5 MG TABLET ONE (03:18)
[2020-12-27] MEDS ORDERED: METHADONE HCL 10 MG TABLET ONE (03:18)
[2020-12-27] MEDS ORDERED: METHADONE HCL 40 MG DISPERSABLE TABLET ONE (03:19)
[2020-12-27 04:06] LABS: SARS-CoV-2 NAA Not Detected (Not Detected)
[2020-12-27] MEDS: METHADONE 160 MG, METHADONE 10 MG, METHADONE 5 MG PO SCH (06:03)
[2020-12-27] MEDS: DOCUSATE SODIUM 100 MG CAPSULE (FP) PO SCH ×3 (06:03→21:39)
[2020-12-27] MEDS: hydrOXYzine PAMOATE 50 MG CAPSULE (FP) PO PRN ×3 (06:03→21:39)
[2020-12-27] MEDS ORDERED: MASKS NR ONE (07:38)
[2020-12-27] MEDS: ESCITALOPRAM OXALATE 10 MG TABLET PO SCH (09:57)
[2020-12-27] MEDS: PRENATAL VITAMINS W/ FOLIC ACID TABLET (FP) PO SCH (09:57)
[2020-12-27] MEDS: NICOTINE 7 MG/24 HOURS TOPICAL PATCH TD SCH (09:58)
[2020-12-27] MEDS: MELATONIN 5 MG TABLETS PO SCH (21:39)
[2020-12-27] MEDS: THIAMINE HCL 100 MG TABLET (FP) PO SCH (21:39)
[2020-12-27] MEDS: IBUPROFEN 400 MG TABLET (FP) PO PRN (21:40)
[2020-12-28] MEDS ORDERED: METHADONE HCL 40 MG DISPERSABLE TABLET ONE (06:00)
[2020-12-28] MEDS ORDERED: METHADONE HCL 5 MG TABLET ONE (06:00)
[2020-12-28] MEDS ORDERED: METHADONE HCL 10 MG TABLET ONE (06:00)
[2020-12-28] MEDS: METHADONE 160 MG, METHADONE 10 MG, METHADONE 5 MG PO SCH (06:05)
[2020-12-28] MEDS: DOCUSATE SODIUM 100 MG CAPSULE (FP) PO SCH ×3 (06:05→21:59)
[2020-12-28] MEDS: hydrOXYzine PAMOATE 50 MG CAPSULE (FP) PO PRN ×3 (06:05→13:53)
[2020-12-28] MEDS: PRENATAL VITAMINS W/ FOLIC ACID TABLET (FP) PO SCH (09:34)
[2020-12-28] MEDS: NICOTINE 7 MG/24 HOURS TOPICAL PATCH TD SCH (09:35)
[2020-12-28] MEDS: ESCITALOPRAM OXALATE 10 MG TABLET PO SCH (09:35)
[2020-12-28] MEDS: MELATONIN 5 MG TABLETS PO SCH (21:59)
[2020-12-28] MEDS: THIAMINE HCL 100 MG TABLET (FP) PO SCH (21:59)
[2020-12-29] MEDS ORDERED: METHADONE HCL 5 MG TABLET ONE (05:07)
[2020-12-29] MEDS ORDERED: METHADONE HCL 40 MG DISPERSABLE TABLET ONE (05:08)
[2020-12-29] MEDS ORDERED: METHADONE HCL 10 MG TABLET ONE (05:08)
[2020-12-29] MEDS: METHADONE 160 MG, METHADONE 10 MG, METHADONE 5 MG PO SCH (06:22)
[2020-12-29] MEDS: DOCUSATE SODIUM 100 MG CAPSULE (FP) PO SCH ×3 (06:22→21:41)
[2020-12-29] MEDS: hydrOXYzine PAMOATE 50 MG CAPSULE (FP) PO PRN ×3 (06:22→18:34)
[2020-12-29] MEDS: ESCITALOPRAM OXALATE 10 MG TABLET PO SCH (09:36)
[2020-12-29] MEDS: NICOTINE 7 MG/24 HOURS TOPICAL PATCH TD SCH (09:36)
[2020-12-29] MEDS: PRENATAL VITAMINS W/ FOLIC ACID TABLET (FP) PO SCH (09:36)
[2020-12-29] MEDS: IBUPROFEN 400 MG TABLET (FP) PO PRN (21:41)
[2020-12-29] MEDS: MELATONIN 5 MG TABLETS PO SCH (21:41)
[2020-12-29] MEDS: THIAMINE HCL 100 MG TABLET (FP) PO SCH (21:42)
[2020-12-30] MEDS ORDERED: METHADONE HCL 10 MG TABLET ONE (03:48)
[2020-12-30] MEDS ORDERED: METHADONE HCL 5 MG TABLET ONE (03:48)
[2020-12-30] MEDS ORDERED: METHADONE HCL 40 MG DISPERSABLE TABLET ONE (03:48)
[2020-12-30] MEDS: METHADONE 160 MG, METHADONE 10 MG, METHADONE 5 MG PO SCH (06:08)
[2020-12-30] MEDS: DOCUSATE SODIUM 100 MG CAPSULE (FP) PO SCH ×3 (06:09→21:48)
[2020-12-30] MEDS: NICOTINE 7 MG/24 HOURS TOPICAL PATCH TD SCH (09:34)
[2020-12-30] MEDS: PRENATAL VITAMINS W/ FOLIC ACID TABLET (FP) PO SCH (09:34)
[2020-12-30] MEDS: ESCITALOPRAM OXALATE 10 MG TABLET PO SCH (09:34)
[2020-12-30] MEDS: hydrOXYzine PAMOATE 50 MG CAPSULE (FP) PO PRN ×3 (09:34→21:49)
[2020-12-30] MEDS ORDERED: PT OWN MED DRAWER 7, Y5N ONE (19:09)
[2020-12-30] MEDS: MELATONIN 5 MG TABLETS PO SCH (21:47)
[2020-12-30] MEDS: THIAMINE HCL 100 MG TABLET (FP) PO SCH (21:48)
[2020-12-31] MEDS ORDERED: METHADONE HCL 5 MG TABLET ONE (03:37)
[2020-12-31] MEDS ORDERED: METHADONE HCL 40 MG DISPERSABLE TABLET ONE (03:38)
[2020-12-31] MEDS ORDERED: METHADONE HCL 10 MG TABLET ONE (03:38)
[2020-12-31] MEDS: METHADONE 160 MG, METHADONE 10 MG, METHADONE 5 MG PO SCH (06:07)
[2020-12-31] MEDS: DOCUSATE SODIUM 100 MG CAPSULE (FP) PO SCH ×3 (06:07→21:30)
[2020-12-31] MEDS: hydrOXYzine PAMOATE 50 MG CAPSULE (FP) PO PRN ×4 (06:07→19:29)
[2020-12-31] MEDS: PRENATAL VITAMINS W/ FOLIC ACID TABLET (FP) PO SCH (09:38)
[2020-12-31] MEDS: ESCITALOPRAM OXALATE 10 MG TABLET PO SCH (09:38)
[2020-12-31] MEDS: NICOTINE 7 MG/24 HOURS TOPICAL PATCH TD SCH (09:39)
[2020-12-31] MEDS: THIAMINE HCL 100 MG TABLET (FP) PO SCH (21:30)
[2020-12-31] MEDS: MELATONIN 5 MG TABLETS PO SCH (21:30)
[2021-01-01] MEDS ORDERED: METHADONE HCL 5 MG TABLET ONE (03:21)
[2021-01-01] MEDS ORDERED: METHADONE HCL 10 MG TABLET ONE (03:21)
[2021-01-01] MEDS ORDERED: METHADONE HCL 40 MG DISPERSABLE TABLET ONE (03:21)
[2021-01-01] MEDS: DOCUSATE SODIUM 100 MG CAPSULE (FP) PO SCH ×3 (06:07→21:20)
[2021-01-01] MEDS: hydrOXYzine PAMOATE 50 MG CAPSULE (FP) PO PRN ×4 (06:07→18:27)
[2021-01-01] MEDS: METHADONE 160 MG, METHADONE 10 MG, METHADONE 5 MG PO SCH (06:08)
[2021-01-01] MEDS: PRENATAL VITAMINS W/ FOLIC ACID TABLET (FP) PO SCH (09:28)
[2021-01-01] MEDS: NICOTINE 7 MG/24 HOURS TOPICAL PATCH TD SCH (09:29)
[2021-01-01] MEDS: ESCITALOPRAM OXALATE 10 MG TABLET PO SCH (09:29)
[2021-01-01] MEDS: IBUPROFEN 400 MG TABLET (FP) PO PRN (18:26)
[2021-01-01] MEDS ORDERED: LIDOCAINE VISCOUS 2% ORAL/TOP 20 ML UNIT-DOSE CUP MM PRN (19:16)
[2021-01-01] MEDS: MELATONIN 5 MG TABLETS PO SCH (21:19)
[2021-01-01] MEDS: THIAMINE HCL 100 MG TABLET (FP) PO SCH (21:19)
[2021-01-02] MEDS ORDERED: METHADONE HCL 5 MG TABLET ONE (03:48)
[2021-01-02] MEDS ORDERED: METHADONE HCL 10 MG TABLET ONE (03:48)
[2021-01-02] MEDS ORDERED: METHADONE HCL 40 MG DISPERSABLE TABLET ONE (03:49)
[2021-01-02] MEDS: METHADONE 160 MG, METHADONE 10 MG, METHADONE 5 MG PO SCH (06:05)
[2021-01-02] MEDS: DOCUSATE SODIUM 100 MG CAPSULE (FP) PO SCH ×3 (06:07→21:07)
[2021-01-02] MEDS: NICOTINE 7 MG/24 HOURS TOPICAL PATCH TD SCH (09:23)
[2021-01-02] MEDS: PRENATAL VITAMINS W/ FOLIC ACID TABLET (FP) PO SCH (09:23)
[2021-01-02] MEDS: ESCITALOPRAM OXALATE 10 MG TABLET PO SCH (09:23)
[2021-01-02] MEDS: hydrOXYzine PAMOATE 50 MG CAPSULE (FP) PO PRN (20:23)
[2021-01-02] MEDS: THIAMINE HCL 100 MG TABLET (FP) PO SCH (21:07)
[2021-01-02] MEDS: MELATONIN 5 MG TABLETS PO SCH (21:07)
[2021-01-03] MEDS ORDERED: METHADONE HCL 5 MG TABLET ONE (03:16)
[2021-01-03] MEDS ORDERED: METHADONE HCL 40 MG DISPERSABLE TABLET ONE (03:17)
[2021-01-03] MEDS ORDERED: METHADONE HCL 10 MG TABLET ONE (03:17)
[2021-01-03] MEDS: DOCUSATE SODIUM 100 MG CAPSULE (FP) PO SCH (06:25)
[2021-01-03] MEDS: METHADONE 160 MG, METHADONE 10 MG, METHADONE 5 MG PO SCH (06:25)
[2021-01-03] MEDS: hydrOXYzine PAMOATE 50 MG CAPSULE (FP) PO PRN ×2 (06:28→09:33)
[2021-01-03 07:01] VITALS: BP 116/82; PULSE 70; TEMP 97.6
[2021-01-03] MEDS: PRENATAL VITAMINS W/ FOLIC ACID TABLET (FP) PO SCH (09:32)
[2021-01-03] MEDS: NICOTINE 7 MG/24 HOURS TOPICAL PATCH TD SCH (09:34)
[2021-01-03] MEDS: ESCITALOPRAM OXALATE 10 MG TABLET PO SCH (09:34)
== END 2021-01-03 09:45 | disposition home or self-care (01) | DRG 772 ==
LOC: YASAS 12:53 → Y5N 12:54
PROVIDERS: ADMIT Allergy & Immunology; ATTEND Allergy & Immunology
PROC: HZ42ZZZ Group Counseling for Substance Abuse Treatment, Cognitive-Behavioral (ICD-10-PCS; principal; 2020-12-20)
DX: F11.20 Opioid dependence, uncomplicated (principal); F10.20 Alcohol dependence, uncomplicated; F14.20 Cocaine dependence, uncomplicated; F13.20 Sedative, hypnotic or anxiolytic dependence, uncomplicated; F17.210 Nicotine dependence, cigarettes, uncomplicated; F19.280 Other psychoactive substance dependence with psychoactive substance-induced anxiety disorder; F19.282 Other psychoactive substance dependence with psychoactive substance-induced sleep disorder; F41.9 Anxiety disorder, unspecified; F43.10 Post-traumatic stress disorder, unspecified; F90.9 Attention-deficit hyperactivity disorder, unspecified type; B18.2 Chronic viral hepatitis C; K08.89 Other specified disorders of teeth and supporting structures; Z56.0 Unemployment, unspecified; Z59.0 Homelessness
CPT/HCPCS: 36415; 87389; C9803; U0003; U0005

== ENCOUNTER 2021-02-27 13:03 | Inpatient (IN) | payer OTHER ==
[2021-02-27 13:21] VITALS: BMI 22.6
[2021-02-27] MEDS ORDERED: IBUPROFEN 400 MG TABLET (FP) PO PRN (14:11)
[2021-02-27] MEDS ORDERED: MAG HYDROX/AL HYDROX/SIMETH 30 ML UNIT-DOSE CUP PO PRN (14:11)
[2021-02-27] MEDS ORDERED: ONDANSETRON *ODT* 4 MG TABLET SL PRN (14:11)
[2021-02-27] MEDS ORDERED: ACETAMINOPHEN 325 MG TABLET (FP) PO PRN ×2 (14:11)
[2021-02-27] MEDS ORDERED: MAGNESIUM HYDROX 2400MG/30ML ORAL SUSPENSION 30 ML CUP PO PRN (14:11)
[2021-02-27] MEDS ORDERED: NICOTINE POLACRILEX 2 MG GUM BUC PRN ×2 (14:11→14:16)
[2021-02-27] MEDS ORDERED: MENTHOL/PHENOL 1 EACH UD MM PRN (14:11)
[2021-02-27] MEDS ORDERED: BISMUTH SUBSALICYLATE 524 MG/30 ML PO PRN (14:11)
[2021-02-27] MEDS ORDERED: MAGNESIUM CITRATE 300 ML BOTTLE PO PRN (14:11)
[2021-02-27] MEDS: diazePAM 5 MG TABLET PO PRN ×2 (15:35→20:01)
[2021-02-27] MEDS: METHOCARBAMOL 500 MG TABLET PO PRN ×2 (15:38→22:01)
[2021-02-27] MEDS: diazePAM 5 MG TABLET PO SCH ×2 (16:58→22:00)
[2021-02-27] MEDS ORDERED: TRIMETHOBENZAMIDE HCL 200MG/2ML INJ IM PRN (17:54)
[2021-02-27] MEDS: hydrOXYzine PAMOATE 25 MG CAPSULE (FP) PO SCH ×2 (18:06→22:00)
[2021-02-27] MEDS ORDERED: cloNIDine HCL 0.1 MG TABLET PO ONE (18:19)
[2021-02-27] MEDS ORDERED: MELATONIN 5 MG TABLETS PO SCH (22:00)
[2021-02-27] MEDS ORDERED: cloNIDine HCL 0.1 MG TABLET PO SCH (22:00)
[2021-02-27] MEDS ORDERED: THIAMINE HCL 100 MG TABLET (FP) PO SCH (22:00)
[2021-02-27 23:42] VITALS: BP 131/78; PULSE 68; TEMP 98
[2021-02-28] MEDS: hydrOXYzine PAMOATE 25 MG CAPSULE (FP) PO SCH (06:03)
[2021-02-28] MEDS: diazePAM 5 MG TABLET PO SCH (06:03)
[2021-02-28] MEDS ORDERED: PRENATAL VITAMINS W/ FOLIC ACID TABLET (FP) PO SCH (10:00)
[2021-02-28] MEDS ORDERED: NICOTINE 21 MG/24 HOURS TOPICAL PATCH TD SCH (10:00)
[2021-03-01] MEDS ORDERED: diazePAM 5 MG TABLET PO SCH (06:00)
[2021-03-02] MEDS ORDERED: diazePAM 5 MG TABLET PO SCH (06:00)
[2021-03-03] MEDS ORDERED: diazePAM 5 MG TABLET PO ONE (06:00)
== END 2021-02-28 00:22 | disposition short-term general hospital (02) | DRG 773 ==
LOC: YASAS 13:03 → Y3N 14:49
PROVIDERS: ADMIT Allergy & Immunology; ATTEND Allergy & Immunology
PROC: HZ2ZZZZ Detoxification Services for Substance Abuse Treatment (ICD-10-PCS; principal; 2021-02-27)
DX: F10.230 Alcohol dependence with withdrawal, uncomplicated (principal); F11.23 Opioid dependence with withdrawal; F13.20 Sedative, hypnotic or anxiolytic dependence, uncomplicated; F14.20 Cocaine dependence, uncomplicated; F17.210 Nicotine dependence, cigarettes, uncomplicated; F41.8 Other specified anxiety disorders; F32.9 Major depressive disorder, single episode, unspecified; F43.10 Post-traumatic stress disorder, unspecified
CPT/HCPCS: C9803; J0735; Q0162; U0003; U0005

== ENCOUNTER 2021-02-28 00:37 | Inpatient (IN) | payer OTHER ==
[2021-02-28] MEDS ORDERED: METHADONE HCL 10 MG TABLET PO ONE (01:06)
[2021-02-28] MEDS ORDERED: METHADONE HCL 10 MG TABLET ONE ×2 (01:08→08:20)
[2021-02-28 01:09] LABS: EOS % 0.1 % (0-4.5); HEMATOCRIT 44.7 % (35.4-49); LYMPH % 11.1 % (8-40); MCH 30.2 pg (25.7-33.7); MCHC 33.5 g/dl (32.0-35.9); MEAN PLT VOLUME 7.9 fl (7.5-11.1); MONO % 2.9 % (3.8-10.2); NEUT % 84.9 % (42.8-82.8); PLATELET COUNT 240 K/MM3 (134-434); RBC 4.97 M/mm3 (4.00-5.60); RDW 15.2 % (11.9-15.9); WHITE BLOOD COUNT 13.7 K/mm3 (4.0-10.0)
[2021-02-28 01:26] LABS: CHLORIDE 95 mmol/L (98-107); SODIUM 137 mmol/L (136-145)
[2021-02-28 01:28] LABS: CALCIUM 8.5 mg/dL (8.5-10.1)
[2021-02-28 01:29] LABS: ALBUMIN 2.6 g/dl (3.4-5.0); BLOOD UREA NITROGEN 17.2 mg/dL (7-18); CO2 34 mmol/L (21-32); GLUCOSE,RANDOM 114 mg/dL (74-106)
[2021-02-28 01:32] LABS: CREATININE 1.4 mg/dL (0.55-1.3); SGOT/AST 20 U/L (15-37); SGPT/ALT 39 U/L (13-61)
[2021-02-28 01:34] LABS: BILIRUBIN,TOTAL 0.5 mg/dL (0.2-1); TOT PROT 5.8 g/dl (6.4-8.2)
[2021-02-28 01:36] LABS: ALK PHOS 116 U/L (45-117)
[2021-02-28 01:41] LABS: ANION GAP 9 MMOL/L (8-16)
[2021-02-28] MEDS ORDERED: MAGNESIUM SULF 50% (8.12 MEQ/2 ML-1 GM VIAL) IVPB ONE (02:05)
[2021-02-28] MEDS ORDERED: KCL 10 MEQ IVPB 10 MEQ/100 ML INFUS.BAG IVPB ONE ×2 (02:12→07:47)
[2021-02-28] MEDS ORDERED: MAGNESIUM SULFATE IN WATER 2 GM/50 ML IVPB IVPB ONE (02:12)
[2021-02-28] MEDS ORDERED: POTASSIUM CHLORIDE ORAL LIQUID 20 MEQ/15 ML ONE (02:12)
[2021-02-28 02:19] LABS: MAGNESIUM 1.4 mg/dL (1.8-2.4)
[2021-02-28] MEDS: KCL 10 MEQ IVPB 10 MEQ/100 ML INFUS.BAG IVPB SCH ×5 (02:21→09:46)
[2021-02-28 04:17] LABS: LIPASE 31 U/L (73-393)
[2021-02-28] MEDS ORDERED: chlordiazePOXIDE HCL 25 MG CAPSULE PO PRN (04:49)
[2021-02-28] MEDS ORDERED: SODIUM CHLORIDE 1,000 ML IV STA (05:01)
[2021-02-28] MEDS ORDERED: chlordiazePOXIDE HCL 25 MG CAPSULE ONE (05:22)
[2021-02-28] MEDS: chlordiazePOXIDE HCL 25 MG CAPSULE PO SCH ×5 (05:22→22:50)
[2021-02-28 05:32] LABS: PHOSPHOROUS 3.1 mg/dL (2.5-4.9)
[2021-02-28] MEDS ORDERED: FOLIC ACID INJECTION - 1 MG, THIAMINE HCL 100 MG, MULTIVIT INJECTION ADULT 10 ML in SOD... IVPB ONE (05:45)
[2021-02-28 06:11] LABS: MAGNESIUM 2.3 mg/dL (1.8-2.4)
[2021-02-28 06:14] LABS: PHOSPHOROUS 3.1 mg/dL (2.5-4.9)
[2021-02-28] MEDS ORDERED: METHADONE HCL 40 MG DISPERSABLE TABLET PO SCH (07:59)
[2021-02-28] MEDS ORDERED: METHADONE HCL 5 MG TABLET ONE (08:20)
[2021-02-28] MEDS ORDERED: METHADONE HCL 40 MG DISPERSABLE TABLET ONE (08:20)
[2021-02-28] MEDS: METHADONE 160 MG, METHADONE 10 MG, METHADONE 5 MG PO SCH (08:20)
[2021-02-28] MEDS: HEPARIN NA (PORCINE) 5,000 UNITS/ML 1ML VIAL SQ SCH ×3 (08:43→21:04)
[2021-02-28] MEDS ORDERED: POTASSIUM CHLORIDE ORAL LIQUID 20 MEQ/15 ML PO SCH (10:00)
[2021-02-28] MEDS ORDERED: MULTIVIT INJ. ADULT COMBO WITH VIT K 1 COMBO 10 ML VIAL IV SCH (10:00)
[2021-02-28 11:56] LABS: BASO % 0.3 % (0-2.0); HEMATOCRIT 39.5 % (35.4-49); HEMOGLOBIN 13.1 GM/dL (11.7-16.9); LYMPH % 16.1 % (8-40); MCH 30.2 pg (25.7-33.7); MEAN CELL VOLUME 91.4 fl (80-96); MEAN PLT VOLUME 8.4 fl (7.5-11.1); MONO % 7.6 % (3.8-10.2); PLATELET COUNT 227 K/MM3 (134-434); RBC 4.32 M/mm3 (4.00-5.60); RDW 15.1 % (11.9-15.9); WHITE BLOOD COUNT 11.5 K/mm3 (4.0-10.0)
[2021-02-28] MEDS: FOLIC ACID 1 MG TABLET (FP) PO SCH (14:45)
[2021-02-28] MEDS: THIAMINE HCL 100 MG TABLET (FP) PO SCH (14:46)
[2021-02-28] MEDS ORDERED: PROCHLORPERAZINE INJECTION 10 MG/2 ML VIAL IVPB PRN (16:40)
[2021-02-28 21:00] VITALS: BMI 24.0
[2021-02-28 22:05] LABS: URINE APPEARANCE CLEAR; URINE BILIRUBIN NEGATIVE (NEGATIVE); URINE COLOR YELLOW; URINE GLUCOSE (UA) NEGATIVE (NEGATIVE); URINE KETONE NEGATIVE (NEGATIVE); URINE LEUK ESTERASE NEGATIVE (NEGATIVE); URINE NITRITE NEGATIVE (NEGATIVE); URINE PROTEIN NEGATIVE (NEGATIVE)
[2021-03-01] MEDS ORDERED: METHADONE HCL 10 MG TABLET ONE (05:35)
[2021-03-01] MEDS ORDERED: METHADONE HCL 5 MG TABLET ONE (05:35)
[2021-03-01] MEDS ORDERED: METHADONE HCL 40 MG DISPERSABLE TABLET ONE (05:36)
[2021-03-01] MEDS: METHADONE 160 MG, METHADONE 10 MG, METHADONE 5 MG PO SCH (05:51)
[2021-03-01] MEDS: chlordiazePOXIDE HCL 25 MG CAPSULE PO SCH (05:53)
[2021-03-01] MEDS: HEPARIN NA (PORCINE) 5,000 UNITS/ML 1ML VIAL SQ SCH (06:01)
[2021-03-01 07:29] VITALS: BP 104/65; PULSE 95; TEMP 97.8
[2021-03-01 08:19] LABS: BASO % 0.3 % (0-2.0); EOS % 2.1 % (0-4.5); HEMOGLOBIN 13.4 GM/dL (11.7-16.9); LYMPH % 22.2 % (8-40); MCH 30.5 pg (25.7-33.7); MCHC 33.4 g/dl (32.0-35.9); MEAN CELL VOLUME 91.5 fl (80-96); MONO % 8.6 % (3.8-10.2); NEUT % 66.8 % (42.8-82.8); PLATELET COUNT 197 K/MM3 (134-434); RBC 4.38 M/mm3 (4.00-5.60); RDW 15.5 % (11.9-15.9); WHITE BLOOD COUNT 8.8 K/mm3 (4.0-10.0)
[2021-03-01 08:36] LABS: CALCIUM 8.8 mg/dL (8.5-10.1)
[2021-03-01 08:37] LABS: BLOOD UREA NITROGEN 9.8 mg/dL (7-18); MAGNESIUM 2.2 mg/dL (1.8-2.4)
[2021-03-01 08:40] LABS: CREATININE 0.6 mg/dL (0.55-1.3); PHOSPHOROUS 2.8 mg/dL (2.5-4.9)
[2021-03-01 08:41] LABS: BILIRUBIN,TOTAL 0.7 mg/dL (0.2-1); TOT PROT 6.2 g/dl (6.4-8.2)
[2021-03-01 08:57] LABS: ALBUMIN 3.2 g/dl (3.4-5.0)
[2021-03-01] MEDS: FOLIC ACID 1 MG TABLET (FP) PO SCH (09:56)
[2021-03-01] MEDS: THIAMINE HCL 100 MG TABLET (FP) PO SCH (09:56)
[2021-03-02] MEDS ORDERED: chlordiazePOXIDE HCL 25 MG CAPSULE PO SCH (05:00)
[2021-03-03] MEDS ORDERED: chlordiazePOXIDE HCL 10 MG CAPSULE PO PRN
[2021-03-03] MEDS ORDERED: chlordiazePOXIDE HCL 10 MG CAPSULE PO SCH (05:00)
[2021-03-04] MEDS ORDERED: chlordiazePOXIDE HCL 10 MG CAPSULE PO SCH (05:00)
[2021-03-05] MEDS ORDERED: chlordiazePOXIDE HCL 10 MG CAPSULE PO ONE (05:00)
== END 2021-03-01 14:33 | disposition other institution (70) | DRG 422 ==
LOC: JER 00:37 → JERBED 03:24 → J8W 10:32
PROVIDERS: ADMIT Internal Medicine; ATTEND Student in an Organized Health Care Education/Training Program
PROC: HZ2ZZZZ Detoxification Services for Substance Abuse Treatment (ICD-10-PCS; principal; 2021-02-28)
DX: E87.6 Hypokalemia (principal); E86.0 Dehydration; E83.42 Hypomagnesemia; K76.0 Fatty (change of) liver, not elsewhere classified; N17.9 Acute kidney failure, unspecified; F11.23 Opioid dependence with withdrawal; K29.70 Gastritis, unspecified, without bleeding; F10.230 Alcohol dependence with withdrawal, uncomplicated; F11.20 Opioid dependence, uncomplicated; F19.10 Other psychoactive substance abuse, uncomplicated; F14.10 Cocaine abuse, uncomplicated; F17.210 Nicotine dependence, cigarettes, uncomplicated; R11.2 Nausea with vomiting, unspecified
CPT/HCPCS: 36415; 71045-TC-FY; 74176-TC; 80053; 81003; 82550; 82962; 83690; 83735; 84100; 84132; 84484; 85025; 87040; 87086; 93005; 93010; 99285-25; C9803; J1644; U0003; U0005

== ENCOUNTER 2021-03-01 13:50 | Inpatient (IN) | payer OTHER ==
[2021-03-01 14:10] VITALS: BMI 21.2
[2021-03-01] MEDS ORDERED: NICOTINE POLACRILEX 2 MG GUM BUC PRN (14:10)
[2021-03-01] MEDS ORDERED: MAGNESIUM CITRATE 300 ML BOTTLE PO PRN (14:10)
[2021-03-01] MEDS ORDERED: ONDANSETRON *ODT* 4 MG TABLET SL PRN (14:10)
[2021-03-01] MEDS ORDERED: BISMUTH SUBSALICYLATE 524 MG/30 ML PO PRN (14:10)
[2021-03-01] MEDS ORDERED: MENTHOL/PHENOL 1 EACH UD MM PRN (14:10)
[2021-03-01] MEDS ORDERED: IBUPROFEN 400 MG TABLET (FP) PO PRN (14:10)
[2021-03-01] MEDS ORDERED: MAGNESIUM HYDROX 2400MG/30ML ORAL SUSPENSION 30 ML CUP PO PRN (14:10)
[2021-03-01] MEDS ORDERED: MAG HYDROX/AL HYDROX/SIMETH 30 ML UNIT-DOSE CUP PO PRN (14:10)
[2021-03-01] MEDS ORDERED: ACETAMINOPHEN 325 MG TABLET (FP) PO PRN ×2 (14:10)
[2021-03-01] MEDS ORDERED: chlordiazePOXIDE 5 MG CAPSULE PO PRN (15:05)
[2021-03-01] MEDS: hydrOXYzine PAMOATE 25 MG CAPSULE (FP) PO SCH ×2 (17:00→22:25)
[2021-03-01] MEDS: chlordiazePOXIDE 5 MG CAPSULE PO SCH ×2 (17:01→22:25)
[2021-03-01] MEDS: PRENATAL VITAMINS W/ FOLIC ACID TABLET (FP) PO SCH (17:03)
[2021-03-01] MEDS: MELATONIN 5 MG TABLETS PO SCH (22:26)
[2021-03-01] MEDS: THIAMINE HCL 100 MG TABLET (FP) PO SCH (22:26)
[2021-03-02] MEDS ORDERED: METHADONE HCL 10 MG TABLET ONE (04:25)
[2021-03-02] MEDS ORDERED: METHADONE HCL 40 MG DISPERSABLE TABLET ONE (04:26)
[2021-03-02] MEDS ORDERED: METHADONE HCL 5 MG TABLET ONE (04:26)
[2021-03-02] MEDS ORDERED: chlordiazePOXIDE HCL 10 MG CAPSULE PO SCH (05:00)
[2021-03-02] MEDS: hydrOXYzine PAMOATE 25 MG CAPSULE (FP) PO SCH (05:30)
[2021-03-02] MEDS: METHADONE 160 MG, METHADONE 10 MG, METHADONE 5 MG PO SCH (05:30)
[2021-03-02] MEDS ORDERED: MASKS NR ONE (08:37)
[2021-03-02] MEDS ORDERED: METHADONE HCL 40 MG DISPERSABLE TABLET PO SCH (10:00)
[2021-03-02] MEDS: NICOTINE 21 MG/24 HOURS TOPICAL PATCH TD SCH (10:18)
[2021-03-02] MEDS: PRENATAL VITAMINS W/ FOLIC ACID TABLET (FP) PO SCH (10:19)
[2021-03-02] MEDS: diazePAM 5 MG TABLET PO SCH ×3 (10:20→22:31)
[2021-03-02 16:01] LABS: HIV INTERPRETATION NEGATIVE (NEGATIVE)
[2021-03-02] MEDS: diazePAM 5 MG TABLET PO PRN ×2 (16:51→20:45)
[2021-03-02] MEDS: THIAMINE HCL 100 MG TABLET (FP) PO SCH (22:31)
[2021-03-02] MEDS: MELATONIN 5 MG TABLETS PO SCH (22:31)
[2021-03-03] MEDS ORDERED: METHADONE HCL 10 MG TABLET ONE (03:47)
[2021-03-03] MEDS ORDERED: METHADONE HCL 40 MG DISPERSABLE TABLET ONE (03:47)
[2021-03-03] MEDS ORDERED: METHADONE HCL 5 MG TABLET ONE (03:47)
[2021-03-03] MEDS ORDERED: chlordiazePOXIDE HCL 10 MG CAPSULE PO SCH (05:00)
[2021-03-03] MEDS: METHADONE 160 MG, METHADONE 10 MG, METHADONE 5 MG PO SCH (05:17)
[2021-03-03] MEDS: diazePAM 5 MG TABLET PO PRN ×3 (05:21→18:50)
[2021-03-03 09:51] LABS: HEMATOCRIT 38.1 % (35.4-49); HEMOGLOBIN 12.7 GM/dL (11.7-16.9); MCH 30.5 pg (25.7-33.7); MCHC 33.4 g/dl (32.0-35.9); MEAN CELL VOLUME 91.3 fl (80-96); MEAN PLT VOLUME 8.2 fl (7.5-11.1); PLATELET COUNT 180 K/MM3 (134-434); RBC 4.18 M/mm3 (4.00-5.60); RDW 15.4 % (11.9-15.9); WHITE BLOOD COUNT 6.9 K/mm3 (4.0-10.0)
[2021-03-03] MEDS: PRENATAL VITAMINS W/ FOLIC ACID TABLET (FP) PO SCH (10:10)
[2021-03-03] MEDS: diazePAM 5 MG TABLET PO SCH ×2 (10:10→22:10)
[2021-03-03] MEDS: NICOTINE 21 MG/24 HOURS TOPICAL PATCH TD SCH (10:10)
[2021-03-03 10:13] LABS: BLOOD UREA NITROGEN 12.3 mg/dL (7-18); CALCIUM 8.8 mg/dL (8.5-10.1)
[2021-03-03 10:14] LABS: ALBUMIN 3.1 g/dl (3.4-5.0); CREATININE 0.7 mg/dL (0.55-1.3)
[2021-03-03 10:15] LABS: BILIRUBIN,TOTAL 0.3 mg/dL (0.2-1)
[2021-03-03 10:16] LABS: TOT PROT 5.9 g/dl (6.4-8.2)
[2021-03-03] MEDS: hydrOXYzine PAMOATE 25 MG CAPSULE (FP) PO PRN (20:49)
[2021-03-03] MEDS: METHOCARBAMOL 500 MG TABLET PO PRN (22:11)
[2021-03-03] MEDS: THIAMINE HCL 100 MG TABLET (FP) PO SCH (22:11)
[2021-03-03] MEDS: MELATONIN 5 MG TABLETS PO SCH (22:11)
[2021-03-04] MEDS ORDERED: chlordiazePOXIDE HCL 10 MG CAPSULE PO PRN
[2021-03-04] MEDS: diazePAM 5 MG TABLET PO PRN ×2 (00:53→07:30)
[2021-03-04] MEDS ORDERED: METHADONE HCL 10 MG TABLET ONE (04:05)
[2021-03-04] MEDS ORDERED: METHADONE HCL 40 MG DISPERSABLE TABLET ONE (04:05)
[2021-03-04] MEDS ORDERED: METHADONE HCL 5 MG TABLET ONE (04:06)
[2021-03-04] MEDS ORDERED: chlordiazePOXIDE HCL 10 MG CAPSULE PO ONE (05:00)
[2021-03-04] MEDS: METHADONE 160 MG, METHADONE 10 MG, METHADONE 5 MG PO SCH (05:30)
[2021-03-04] MEDS ORDERED: diazePAM 5 MG TABLET PO ONE (06:00)
[2021-03-04 09:12] VITALS: BP 95/59; PULSE 67; TEMP 96.9
[2021-03-04] MEDS: PRENATAL VITAMINS W/ FOLIC ACID TABLET (FP) PO SCH (10:36)
[2021-03-04] MEDS: METHOCARBAMOL 500 MG TABLET PO PRN (10:38)
[2021-03-04] MEDS: hydrOXYzine PAMOATE 25 MG CAPSULE (FP) PO PRN (10:38)
[2021-03-04] MEDS: NICOTINE 21 MG/24 HOURS TOPICAL PATCH TD SCH (10:38)
== END 2021-03-04 11:20 | disposition home or self-care (01) | DRG 773 ==
LOC: YASAS 13:50 → Y3N 15:04
PROVIDERS: ADMIT Allergy & Immunology; ATTEND Allergy & Immunology
PROC: HZ2ZZZZ Detoxification Services for Substance Abuse Treatment (ICD-10-PCS; principal; 2021-03-01)
DX: F10.230 Alcohol dependence with withdrawal, uncomplicated (principal); F11.20 Opioid dependence, uncomplicated; F14.20 Cocaine dependence, uncomplicated; F13.20 Sedative, hypnotic or anxiolytic dependence, uncomplicated; F12.20 Cannabis dependence, uncomplicated; F17.210 Nicotine dependence, cigarettes, uncomplicated; F41.8 Other specified anxiety disorders; F32.9 Major depressive disorder, single episode, unspecified; F43.10 Post-traumatic stress disorder, unspecified; B18.2 Chronic viral hepatitis C; Z59.0 Homelessness
CPT/HCPCS: 36415; 80053; 85027; 86780; 87389

== ENCOUNTER 2021-05-23 08:53 | Inpatient (IN) | payer OTHER ==
[2021-05-23 09:28] VITALS: BMI 24.6
[2021-05-23] MEDS ORDERED: NICOTINE 10 MG CARTRIDGE (INHALER) IH PRN (10:33)
[2021-05-23] MEDS ORDERED: MAG HYDROX/AL HYDROX/SIMETH 30 ML UNIT-DOSE CUP PO PRN (10:33)
[2021-05-23] MEDS ORDERED: ACETAMINOPHEN 325 MG TABLET (FP) PO PRN ×2 (10:33)
[2021-05-23] MEDS ORDERED: MAGNESIUM HYDROX 2400MG/30ML ORAL SUSPENSION 30 ML CUP PO PRN (10:33)
[2021-05-23] MEDS ORDERED: MENTHOL/PHENOL 1 EACH UD MM PRN (10:33)
[2021-05-23] MEDS ORDERED: ONDANSETRON *ODT* 4 MG TABLET SL PRN (10:33)
[2021-05-23] MEDS ORDERED: IBUPROFEN 400 MG TABLET (FP) PO PRN (10:33)
[2021-05-23] MEDS ORDERED: MAGNESIUM CITRATE 300 ML BOTTLE PO PRN (10:33)
[2021-05-23] MEDS: PRENATAL VITAMINS W/ FOLIC ACID TABLET (FP) PO SCH (11:52)
[2021-05-23] MEDS: diazePAM 5 MG TABLET PO SCH ×3 (11:53→22:06)
[2021-05-23] MEDS: NICOTINE 14 MG/24 HOURS TOPICAL PATCH TD SCH (11:53)
[2021-05-23] MEDS: hydrOXYzine PAMOATE 25 MG CAPSULE (FP) PO SCH ×3 (13:55→22:07)
[2021-05-23 13:57] LABS: HEMOGLOBIN 12.2 GM/dL (11.7-16.9); MCH 31.7 pg (25.7-33.7); MEAN CELL VOLUME 93.1 fl (80-96); MEAN PLT VOLUME 8.5 fl (7.5-11.1); PLATELET COUNT 197 10^3/uL (134-434); RBC 3.86 M/mm3 (4.00-5.60); RDW 15.1 % (11.9-15.9); WHITE BLOOD COUNT 8.4 K/mm3 (4.0-10.0)
[2021-05-23 14:17] LABS: ALBUMIN 3.4 g/dl (3.4-5.0); BLOOD UREA NITROGEN 10.4 mg/dL (7-18)
[2021-05-23 14:18] LABS: BILIRUBIN,TOTAL 0.8 mg/dL (0.2-1)
[2021-05-23 14:19] LABS: CALCIUM 8.6 mg/dL (8.5-10.1); TOT PROT 6.8 g/dl (6.4-8.2)
[2021-05-23 14:20] LABS: CREATININE 0.7 mg/dL (0.55-1.3)
[2021-05-23] MEDS: diazePAM 5 MG TABLET PO PRN (15:53)
[2021-05-23] MEDS: CLINDAMYCIN HCL 150 MG CAPSULE (FP) PO SCH ×2 (15:53→22:07)
[2021-05-23 16:53] LABS: HIV INTERPRETATION NEGATIVE (NEGATIVE)
[2021-05-23] MEDS: MELATONIN 5 MG TABLETS PO SCH (22:07)
[2021-05-23] MEDS: THIAMINE HCL 100 MG TABLET (FP) PO SCH (22:07)
[2021-05-23] MEDS: METHOCARBAMOL 500 MG TABLET PO PRN (22:08)
[2021-05-24] MEDS ORDERED: methaDONE HCL 40 MG DISPERSABLE TABLET ONE (04:06)
[2021-05-24] MEDS ORDERED: methaDONE HCL 10 MG TABLET ONE (04:06)
[2021-05-24] MEDS: hydrOXYzine PAMOATE 25 MG CAPSULE (FP) PO SCH ×5 (05:26→22:28)
[2021-05-24] MEDS: CLINDAMYCIN HCL 150 MG CAPSULE (FP) PO SCH ×3 (05:26→22:28)
[2021-05-24] MEDS: diazePAM 5 MG TABLET PO SCH ×4 (05:26→22:28)
[2021-05-24] MEDS: diazePAM 5 MG TABLET PO PRN ×3 (08:02→19:01)
[2021-05-24] MEDS ORDERED: methaDONE HCL 40 MG DISPERSABLE TABLET PO SCH (10:00)
[2021-05-24] MEDS: NICOTINE 14 MG/24 HOURS TOPICAL PATCH TD SCH (10:15)
[2021-05-24] MEDS: PRENATAL VITAMINS W/ FOLIC ACID TABLET (FP) PO SCH (10:15)
[2021-05-24] MEDS: THIAMINE HCL 100 MG TABLET (FP) PO SCH (22:28)
[2021-05-24] MEDS: MELATONIN 5 MG TABLETS PO SCH (22:28)
[2021-05-24] MEDS: METHOCARBAMOL 500 MG TABLET PO PRN (22:28)
[2021-05-25] MEDS ORDERED: methaDONE HCL 40 MG DISPERSABLE TABLET ONE (04:53)
[2021-05-25] MEDS ORDERED: methaDONE HCL 10 MG TABLET ONE (04:53)
[2021-05-25] MEDS: CLINDAMYCIN HCL 150 MG CAPSULE (FP) PO SCH ×3 (06:00→22:06)
[2021-05-25] MEDS: diazePAM 5 MG TABLET PO SCH ×3 (06:01→22:47)
[2021-05-25] MEDS: hydrOXYzine PAMOATE 25 MG CAPSULE (FP) PO SCH ×5 (06:01→22:06)
[2021-05-25] MEDS: BISMUTH SUBSALICYLATE 524 MG/30 ML PO PRN ×2 (06:06→11:07)
[2021-05-25] MEDS: diazePAM 5 MG TABLET PO PRN ×4 (08:03→21:05)
[2021-05-25] MEDS: PRENATAL VITAMINS W/ FOLIC ACID TABLET (FP) PO SCH (10:05)
[2021-05-25] MEDS: ESCITALOPRAM OXALATE 10 MG TABLET PO SCH (10:05)
[2021-05-25] MEDS: NICOTINE 14 MG/24 HOURS TOPICAL PATCH TD SCH (10:06)
[2021-05-25] MEDS: THIAMINE HCL 100 MG TABLET (FP) PO SCH (22:06)
[2021-05-25] MEDS: MELATONIN 5 MG TABLETS PO SCH (22:06)
[2021-05-25] MEDS: METHOCARBAMOL 500 MG TABLET PO PRN (22:06)
[2021-05-26] MEDS ORDERED: methaDONE HCL 40 MG DISPERSABLE TABLET ONE (05:23)
[2021-05-26] MEDS ORDERED: methaDONE HCL 10 MG TABLET ONE (05:23)
[2021-05-26] MEDS: diazePAM 5 MG TABLET PO SCH ×2 (05:25→17:42)
[2021-05-26] MEDS: CLINDAMYCIN HCL 150 MG CAPSULE (FP) PO SCH ×3 (05:28→22:39)
[2021-05-26] MEDS: hydrOXYzine PAMOATE 25 MG CAPSULE (FP) PO SCH ×5 (05:28→22:39)
[2021-05-26] MEDS: diazePAM 5 MG TABLET PO PRN (07:56)
[2021-05-26] MEDS: PRENATAL VITAMINS W/ FOLIC ACID TABLET (FP) PO SCH (10:21)
[2021-05-26] MEDS: ESCITALOPRAM OXALATE 10 MG TABLET PO SCH (10:21)
[2021-05-26] MEDS: NICOTINE 14 MG/24 HOURS TOPICAL PATCH TD SCH (10:23)
[2021-05-26] MEDS: THIAMINE HCL 100 MG TABLET (FP) PO SCH (22:39)
[2021-05-26] MEDS: MELATONIN 5 MG TABLETS PO SCH (22:39)
[2021-05-26] MEDS: METHOCARBAMOL 500 MG TABLET PO PRN (22:39)
[2021-05-27] MEDS ORDERED: methaDONE HCL 10 MG TABLET ONE (04:19)
[2021-05-27] MEDS ORDERED: methaDONE HCL 40 MG DISPERSABLE TABLET ONE (04:19)
[2021-05-27] MEDS: hydrOXYzine PAMOATE 25 MG CAPSULE (FP) PO SCH ×2 (05:34→10:42)
[2021-05-27] MEDS: CLINDAMYCIN HCL 150 MG CAPSULE (FP) PO SCH (05:34)
[2021-05-27] MEDS ORDERED: diazePAM 5 MG TABLET PO ONE (06:00)
[2021-05-27 09:25] VITALS: BP 98/56; PULSE 65; TEMP 97.1
[2021-05-27] MEDS: NICOTINE 14 MG/24 HOURS TOPICAL PATCH TD SCH (10:42)
[2021-05-27] MEDS: ESCITALOPRAM OXALATE 10 MG TABLET PO SCH (10:42)
[2021-05-27] MEDS: PRENATAL VITAMINS W/ FOLIC ACID TABLET (FP) PO SCH (10:42)
== END 2021-05-27 12:45 | disposition home or self-care (01) | DRG 773 ==
LOC: YASAS 08:53 → Y3N 10:30
PROVIDERS: ADMIT Allergy & Immunology; ATTEND Allergy & Immunology
PROC: HZ2ZZZZ Detoxification Services for Substance Abuse Treatment (ICD-10-PCS; principal; 2021-05-23)
DX: F10.230 Alcohol dependence with withdrawal, uncomplicated (principal); F11.20 Opioid dependence, uncomplicated; F13.20 Sedative, hypnotic or anxiolytic dependence, uncomplicated; F12.20 Cannabis dependence, uncomplicated; F17.210 Nicotine dependence, cigarettes, uncomplicated; F19.280 Other psychoactive substance dependence with psychoactive substance-induced anxiety disorder; F19.24 Other psychoactive substance dependence with psychoactive substance-induced mood disorder; F43.10 Post-traumatic stress disorder, unspecified; F41.9 Anxiety disorder, unspecified; F90.0 Attention-deficit hyperactivity disorder, predominantly inattentive type; G47.00 Insomnia, unspecified; B18.2 Chronic viral hepatitis C; L03.116 Cellulitis of left lower limb; Z56.0 Unemployment, unspecified; Z59.0 Homelessness
CPT/HCPCS: 36415; 80053; 84450; 84460; 85027; 86780; 87389; C9803; U0003; U0005

== ENCOUNTER 2021-07-26 09:26 | Inpatient (IN) | payer OTHER ==
[2021-07-26 09:41] VITALS: BMI 25.1
[2021-07-26] MEDS ORDERED: MENTHOL/PHENOL 1 EACH UD MM PRN (09:46)
[2021-07-26] MEDS ORDERED: BISMUTH SUBSALICYLATE 262 MG/15 ML BTL PO PRN (09:46)
[2021-07-26] MEDS ORDERED: diazePAM 5 MG TABLET PO PRN (09:46)
[2021-07-26] MEDS ORDERED: MAG HYDROX/AL HYDROX/SIMETH 30 ML UNIT-DOSE CUP PO PRN (09:46)
[2021-07-26] MEDS ORDERED: MAGNESIUM CITRATE 300 ML BOTTLE PO PRN (09:46)
[2021-07-26] MEDS ORDERED: ACETAMINOPHEN 325 MG TABLET (FP) PO PRN ×2 (09:46)
[2021-07-26] MEDS ORDERED: ONDANSETRON *ODT* 4 MG TABLET SL PRN (09:46)
[2021-07-26] MEDS ORDERED: MAGNESIUM HYDROX 2400MG/30ML ORAL SUSPENSION 30 ML CUP PO PRN (09:46)
[2021-07-26] MEDS ORDERED: TUBERCULIN PPD 5 TU/0.1ML SYRINGE (IN PATIENT USE ONLY) ID ONE (11:05)
[2021-07-26] MEDS: hydrOXYzine PAMOATE 25 MG CAPSULE (FP) PO SCH ×4 (11:09→22:57)
[2021-07-26] MEDS: PRENATAL VITAMINS W/ FOLIC ACID TABLET (FP) PO SCH (11:09)
[2021-07-26] MEDS: NICOTINE 14 MG/24 HOURS TOPICAL PATCH TD SCH (11:09)
[2021-07-26] MEDS: diazePAM 5 MG TABLET PO SCH ×3 (11:10→22:56)
[2021-07-26] MEDS: IBUPROFEN 400 MG TABLET (FP) PO PRN (14:36)
[2021-07-26 14:56] LABS: HEMATOCRIT 39.6 % (35.4-49); HEMOGLOBIN 13.6 GM/dL (11.7-16.9); MCH 31.4 pg (25.7-33.7); MCHC 34.3 g/dl (32.0-35.9); MEAN CELL VOLUME 91.4 fl (80-96); MEAN PLT VOLUME 8.8 fl (7.5-11.1); PLATELET COUNT 235 10^3/uL (134-434); RBC 4.33 M/mm3 (4.00-5.60); RDW 14.4 % (11.9-15.9); WHITE BLOOD COUNT 6.7 K/mm3 (4.0-10.0)
[2021-07-26 15:00] LABS: CALCIUM 8.9 mg/dL (8.5-10.1)
[2021-07-26 15:01] LABS: ALBUMIN 3.7 g/dl (3.4-5.0); BLOOD UREA NITROGEN 14.7 mg/dL (7-18)
[2021-07-26 15:04] LABS: CREATININE 0.8 mg/dL (0.55-1.3)
[2021-07-26 15:06] LABS: BILIRUBIN,TOTAL 0.6 mg/dL (0.2-1); TOT PROT 7.1 g/dl (6.4-8.2)
[2021-07-26 15:58] LABS: HIV INTERPRETATION NEGATIVE (NEGATIVE)
[2021-07-26] MEDS: MELATONIN 5 MG TABLETS PO SCH (22:56)
[2021-07-26] MEDS: THIAMINE HCL 100 MG TABLET (FP) PO SCH (22:57)
[2021-07-27] MEDS ORDERED: methaDONE HCL 40 MG DISPERSABLE TABLET ONE (04:25)
[2021-07-27] MEDS: diazePAM 5 MG TABLET PO SCH ×4 (04:36→22:21)
[2021-07-27] MEDS: hydrOXYzine PAMOATE 25 MG CAPSULE (FP) PO SCH ×5 (05:14→22:20)
[2021-07-27] MEDS ORDERED: methaDONE HCL 10 MG TABLET PO SCH (06:00)
[2021-07-27] MEDS ORDERED: methaDONE HCL 40 MG DISPERSABLE TABLET PO SCH (06:00)
[2021-07-27] MEDS ORDERED: DOCUSATE SODIUM 100 MG CAPSULE (FP) PO ONE (10:00)
[2021-07-27] MEDS ORDERED: METHOCARBAMOL 750 MG TAB PO ONE (10:00)
[2021-07-27] MEDS ORDERED: GABAPENTIN 100 MG CAPSULE PO ONE (10:00)
[2021-07-27] MEDS: PRENATAL VITAMINS W/ FOLIC ACID TABLET (FP) PO SCH (10:41)
[2021-07-27] MEDS: NICOTINE 10 MG CARTRIDGE (INHALER) IH PRN (10:44)
[2021-07-27] MEDS: NICOTINE 14 MG/24 HOURS TOPICAL PATCH TD SCH (10:46)
[2021-07-27] MEDS: DOCUSATE SODIUM 100 MG CAPSULE (FP) PO SCH ×2 (14:07→22:20)
[2021-07-27] MEDS: GABAPENTIN 100 MG CAPSULE PO SCH ×2 (14:07→22:20)
[2021-07-27] MEDS: THIAMINE HCL 100 MG TABLET (FP) PO SCH (22:20)
[2021-07-27] MEDS: MELATONIN 5 MG TABLETS PO SCH (22:20)
[2021-07-28] MEDS ORDERED: methaDONE HCL 40 MG DISPERSABLE TABLET ONE (04:03)
[2021-07-28] MEDS: GABAPENTIN 100 MG CAPSULE PO SCH ×3 (06:37→22:09)
[2021-07-28] MEDS: DOCUSATE SODIUM 100 MG CAPSULE (FP) PO SCH ×3 (06:37→22:10)
[2021-07-28] MEDS: diazePAM 5 MG TABLET PO SCH ×3 (06:37→22:09)
[2021-07-28] MEDS: hydrOXYzine PAMOATE 25 MG CAPSULE (FP) PO SCH ×3 (07:00→15:11)
[2021-07-28] MEDS: NICOTINE 10 MG CARTRIDGE (INHALER) IH PRN (07:30)
[2021-07-28] MEDS: PRENATAL VITAMINS W/ FOLIC ACID TABLET (FP) PO SCH (10:25)
[2021-07-28] MEDS: NICOTINE 14 MG/24 HOURS TOPICAL PATCH TD SCH (10:28)
[2021-07-28] MEDS: METHOCARBAMOL 500 MG TABLET PO PRN ×2 (10:28→17:53)
[2021-07-28] MEDS: diazePAM 5 MG TABLET PO PRN ×2 (10:28→17:54)
[2021-07-28] MEDS: IBUPROFEN 400 MG TABLET (FP) PO PRN (17:53)
[2021-07-28] MEDS: THIAMINE HCL 100 MG TABLET (FP) PO SCH (22:09)
[2021-07-28] MEDS: MELATONIN 5 MG TABLETS PO SCH (22:10)
[2021-07-29] MEDS ORDERED: methaDONE HCL 40 MG DISPERSABLE TABLET ONE (04:04)
[2021-07-29] MEDS: DOCUSATE SODIUM 100 MG CAPSULE (FP) PO SCH ×3 (06:46→22:02)
[2021-07-29] MEDS: GABAPENTIN 100 MG CAPSULE PO SCH ×3 (06:46→22:03)
[2021-07-29] MEDS: diazePAM 5 MG TABLET PO SCH ×2 (06:47→17:00)
[2021-07-29] MEDS: diazePAM 5 MG TABLET PO PRN ×2 (08:42→22:03)
[2021-07-29] MEDS: NICOTINE 10 MG CARTRIDGE (INHALER) IH PRN ×2 (08:42→19:56)
[2021-07-29] MEDS: METHOCARBAMOL 500 MG TABLET PO PRN ×2 (10:27→16:48)
[2021-07-29] MEDS: NICOTINE 14 MG/24 HOURS TOPICAL PATCH TD SCH (10:27)
[2021-07-29] MEDS: PRENATAL VITAMINS W/ FOLIC ACID TABLET (FP) PO SCH (10:27)
[2021-07-29] MEDS: THIAMINE HCL 100 MG TABLET (FP) PO SCH (22:03)
[2021-07-29] MEDS: MELATONIN 5 MG TABLETS PO SCH (22:04)
[2021-07-30] MEDS ORDERED: methaDONE HCL 40 MG DISPERSABLE TABLET ONE (04:34)
[2021-07-30] MEDS: GABAPENTIN 100 MG CAPSULE PO SCH ×3 (05:41→22:04)
[2021-07-30] MEDS: DOCUSATE SODIUM 100 MG CAPSULE (FP) PO SCH ×3 (05:43→22:04)
[2021-07-30] MEDS ORDERED: diazePAM 5 MG TABLET PO ONE (06:00)
[2021-07-30] MEDS: NICOTINE 10 MG CARTRIDGE (INHALER) IH PRN ×2 (07:09→19:38)
[2021-07-30] MEDS: PRENATAL VITAMINS W/ FOLIC ACID TABLET (FP) PO SCH (11:00)
[2021-07-30] MEDS: NICOTINE 14 MG/24 HOURS TOPICAL PATCH TD SCH (11:00)
[2021-07-30] MEDS ORDERED: hydrOXYzine PAMOATE 25 MG CAPSULE (FP) PO PRN (17:21)
[2021-07-30] MEDS: MELATONIN 5 MG TABLETS PO SCH (22:04)
[2021-07-30] MEDS: METHOCARBAMOL 500 MG TABLET PO PRN (22:04)
[2021-07-30] MEDS: THIAMINE HCL 100 MG TABLET (FP) PO SCH (22:04)
[2021-07-31] MEDS ORDERED: methaDONE HCL 40 MG DISPERSABLE TABLET ONE (04:31)
[2021-07-31] MEDS: DOCUSATE SODIUM 100 MG CAPSULE (FP) PO SCH (05:14)
[2021-07-31 06:22] VITALS: BP 99/53; PULSE 56; TEMP 98.4
[2021-07-31] MEDS: NICOTINE 10 MG CARTRIDGE (INHALER) IH PRN (08:49)
[2021-07-31] MEDS ORDERED: FLUoxetine HCL 10 MG CAPSULE PO SCH (10:00)
== END 2021-07-31 09:29 | disposition other institution (70) | DRG 773 ==
LOC: YASAS 09:26 → Y6N 10:03
PROVIDERS: ADMIT Allergy & Immunology; ATTEND Allergy & Immunology
PROC: HZ2ZZZZ Detoxification Services for Substance Abuse Treatment (ICD-10-PCS; principal; 2021-07-26)
DX: F11.23 Opioid dependence with withdrawal (principal); F10.230 Alcohol dependence with withdrawal, uncomplicated; F13.20 Sedative, hypnotic or anxiolytic dependence, uncomplicated; F14.20 Cocaine dependence, uncomplicated; F16.10 Hallucinogen abuse, uncomplicated; F12.20 Cannabis dependence, uncomplicated; F17.210 Nicotine dependence, cigarettes, uncomplicated; F19.280 Other psychoactive substance dependence with psychoactive substance-induced anxiety disorder; F19.24 Other psychoactive substance dependence with psychoactive substance-induced mood disorder; F32.A Depression, unspecified; F41.9 Anxiety disorder, unspecified; F90.9 Attention-deficit hyperactivity disorder, unspecified type; F43.10 Post-traumatic stress disorder, unspecified; K59.00 Constipation, unspecified; M54.50 Low back pain, unspecified; G89.29 Other chronic pain; R74.01 Elevation of levels of liver transaminase levels; Z86.19 Personal history of other infectious and parasitic diseases; Z59.02 Unsheltered homelessness; Z56.0 Unemployment, unspecified
CPT/HCPCS: 36415; 80053; 85027; 86780; 87389; C9803; U0003; U0005

== ENCOUNTER 2021-11-24 12:34 | Inpatient (IN) | payer OTHER ==
[2021-11-24] MEDS ORDERED: MENTHOL/PHENOL 1 EACH UD MM PRN (13:03)
[2021-11-24] MEDS ORDERED: METHOCARBAMOL 500 MG TABLET PO PRN (13:03)
[2021-11-24] MEDS ORDERED: ONDANSETRON *ODT* 4 MG TABLET SL PRN (13:03)
[2021-11-24] MEDS ORDERED: MAGNESIUM HYDROX 2400MG/30ML ORAL SUSPENSION 30 ML CUP PO PRN (13:03)
[2021-11-24] MEDS ORDERED: ACETAMINOPHEN 325 MG TABLET (FP) PO PRN ×2 (13:03)
[2021-11-24] MEDS ORDERED: IBUPROFEN 400 MG TABLET (FP) PO PRN (13:03)
[2021-11-24] MEDS ORDERED: MAG HYDROX/AL HYDROX/SIMETH 30 ML UNIT-DOSE CUP PO PRN (13:03)
[2021-11-24] MEDS ORDERED: NICOTINE 10 MG CARTRIDGE (INHALER) IH PRN (13:03)
[2021-11-24] MEDS ORDERED: BISMUTH SUBSALICYLATE 524 MG/30 ML PO PRN (13:03)
[2021-11-24] MEDS ORDERED: MAGNESIUM CITRATE 300 ML BOTTLE PO PRN (13:03)
[2021-11-24] MEDS ORDERED: LOPERAMIDE HCL 2 MG CAPSULE PO PRN (13:03)
[2021-11-24] MEDS ORDERED: LORazepam 1 MG TABLET PO PRN (13:03)
[2021-11-24 13:42] VITALS: BMI 25.7
[2021-11-24] MEDS: NICOTINE 14 MG/24 HOURS TOPICAL PATCH TD SCH (15:45)
[2021-11-24] MEDS: PRENATAL VITAMINS W/ FOLIC ACID TABLET (FP) PO SCH (15:46)
[2021-11-24] MEDS: hydrOXYzine PAMOATE 25 MG CAPSULE (FP) PO SCH ×3 (15:46→22:48)
[2021-11-24 17:14] LABS: HEMATOCRIT 38.6 % (35.4-49); HEMOGLOBIN 12.5 GM/dL (11.7-16.9); MCHC 32.4 g/dl (32.0-35.9); MEAN CELL VOLUME 92.7 fl (80-96); PLATELET COUNT 240 10^3/uL (134-434); RBC 4.16 M/mm3 (4.00-5.60); RDW 14.7 % (11.9-15.9); WHITE BLOOD COUNT 10.8 K/mm3 (4.0-10.0)
[2021-11-24 17:16] LABS: BLOOD UREA NITROGEN 16.3 mg/dL (7-18); CALCIUM 8.7 mg/dL (8.5-10.1)
[2021-11-24 17:18] LABS: ALBUMIN 3.8 g/dl (3.4-5.0)
[2021-11-24 17:20] LABS: CREATININE 0.9 mg/dL (0.55-1.3)
[2021-11-24 17:21] LABS: BILIRUBIN,TOTAL 0.8 mg/dL (0.2-1)
[2021-11-24] MEDS: LORazepam 2 MG TABLET PO SCH ×2 (19:12→22:49)
[2021-11-24] MEDS: CEPHALEXIN MONOHYDRATE 500 MG CAPSULE (UD) PO SCH (22:48)
[2021-11-24] MEDS: MELATONIN 5 MG TABLETS PO SCH (22:49)
[2021-11-24] MEDS: THIAMINE HCL 100 MG TABLET (FP) PO SCH (22:49)
[2021-11-25] MEDS ORDERED: methaDONE HCL 10 MG TABLET ONE (04:24)
[2021-11-25] MEDS ORDERED: methaDONE HCL 40 MG DISPERSABLE TABLET ONE (04:25)
[2021-11-25] MEDS: hydrOXYzine PAMOATE 25 MG CAPSULE (FP) PO SCH ×5 (06:31→22:34)
[2021-11-25] MEDS: LORazepam 2 MG TABLET PO SCH ×4 (06:31→22:34)
[2021-11-25] MEDS ORDERED: methaDONE HCL 40 MG DISPERSABLE TABLET PO SCH (10:00)
[2021-11-25] MEDS: CEPHALEXIN MONOHYDRATE 500 MG CAPSULE (UD) PO SCH ×2 (11:00→22:34)
[2021-11-25] MEDS: PRENATAL VITAMINS W/ FOLIC ACID TABLET (FP) PO SCH (11:01)
[2021-11-25] MEDS: NICOTINE 14 MG/24 HOURS TOPICAL PATCH TD SCH (11:02)
[2021-11-25] MEDS: THIAMINE HCL 100 MG TABLET (FP) PO SCH (22:34)
[2021-11-25] MEDS: MELATONIN 5 MG TABLETS PO SCH (22:34)
[2021-11-26] MEDS ORDERED: methaDONE HCL 10 MG TABLET ONE (04:45)
[2021-11-26] MEDS ORDERED: methaDONE HCL 40 MG DISPERSABLE TABLET ONE (04:46)
[2021-11-26] MEDS: hydrOXYzine PAMOATE 25 MG CAPSULE (FP) PO SCH ×5 (07:42→23:04)
[2021-11-26] MEDS: LORazepam 1 MG TABLET PO SCH ×4 (07:42→23:04)
[2021-11-26] MEDS: PRENATAL VITAMINS W/ FOLIC ACID TABLET (FP) PO SCH (10:42)
[2021-11-26] MEDS: CEPHALEXIN MONOHYDRATE 500 MG CAPSULE (UD) PO SCH ×2 (10:42→23:03)
[2021-11-26] MEDS: NICOTINE 14 MG/24 HOURS TOPICAL PATCH TD SCH (10:43)
[2021-11-26] MEDS: THIAMINE HCL 100 MG TABLET (FP) PO SCH (23:04)
[2021-11-27] MEDS ORDERED: LORazepam 0.5 MG TABLET PO PRN
[2021-11-27] MEDS: MELATONIN 5 MG TABLETS PO SCH ×2 (00:04→22:25)
[2021-11-27] MEDS ORDERED: methaDONE HCL 10 MG TABLET ONE (04:28)
[2021-11-27] MEDS ORDERED: methaDONE HCL 40 MG DISPERSABLE TABLET ONE (04:28)
[2021-11-27] MEDS: LORazepam 0.5 MG TABLET PO SCH ×4 (04:31→22:26)
[2021-11-27] MEDS: hydrOXYzine PAMOATE 25 MG CAPSULE (FP) PO SCH ×5 (05:10→22:25)
[2021-11-27] MEDS: CEPHALEXIN MONOHYDRATE 500 MG CAPSULE (UD) PO SCH ×2 (10:28→22:48)
[2021-11-27] MEDS: NICOTINE 14 MG/24 HOURS TOPICAL PATCH TD SCH (14:05)
[2021-11-27] MEDS: PRENATAL VITAMINS W/ FOLIC ACID TABLET (FP) PO SCH (14:06)
[2021-11-27] MEDS: THIAMINE HCL 100 MG TABLET (FP) PO SCH (22:25)
[2021-11-28 00:08] LABS: SARS-CoV-2 NAA Not Detected (Not Detected)
[2021-11-28] MEDS ORDERED: methaDONE HCL 40 MG DISPERSABLE TABLET ONE (04:44)
[2021-11-28] MEDS ORDERED: methaDONE HCL 10 MG TABLET ONE (04:44)
[2021-11-28] MEDS ORDERED: LORazepam 0.5 MG TABLET PO ONE (05:00)
[2021-11-28] MEDS: hydrOXYzine PAMOATE 25 MG CAPSULE (FP) PO SCH ×2 (06:39→10:11)
[2021-11-28 09:45] VITALS: BP 128/65; PULSE 102; TEMP 97.7
[2021-11-28] MEDS: PRENATAL VITAMINS W/ FOLIC ACID TABLET (FP) PO SCH (10:11)
[2021-11-28] MEDS: CEPHALEXIN MONOHYDRATE 500 MG CAPSULE (UD) PO SCH (10:11)
[2021-11-28] MEDS: NICOTINE 14 MG/24 HOURS TOPICAL PATCH TD SCH (10:11)
== END 2021-11-28 12:07 | disposition home or self-care (01) | DRG 773 ==
LOC: YASAS 12:34 → Y6N 15:04
PROVIDERS: ADMIT Allergy & Immunology; ATTEND Allergy & Immunology
PROC: HZ2ZZZZ Detoxification Services for Substance Abuse Treatment (ICD-10-PCS; principal; 2021-11-24)
DX: F10.230 Alcohol dependence with withdrawal, uncomplicated (principal); F11.20 Opioid dependence, uncomplicated; F14.20 Cocaine dependence, uncomplicated; F13.230 Sedative, hypnotic or anxiolytic dependence with withdrawal, uncomplicated; F17.210 Nicotine dependence, cigarettes, uncomplicated; F41.9 Anxiety disorder, unspecified; F43.10 Post-traumatic stress disorder, unspecified; M54.50 Low back pain, unspecified; G89.29 Other chronic pain; Z56.0 Unemployment, unspecified; Z59.00 Homelessness unspecified
CPT/HCPCS: 36415; 80053; 85027; 86780; C9803; U0003; U0005

== ENCOUNTER 2022-01-07 10:51 | Inpatient (IN) | payer OTHER ==
[2022-01-07] MEDS ORDERED: ONDANSETRON *ODT* 4 MG TABLET SL PRN (12:15)
[2022-01-07] MEDS ORDERED: MAGNESIUM HYDROX 2400MG/30ML ORAL SUSPENSION 30 ML CUP PO PRN (12:15)
[2022-01-07] MEDS ORDERED: BENZOCAINE/MENTHOL (CHLORASEPTIC ) LOZENGE MM PRN (12:15)
[2022-01-07] MEDS ORDERED: DICYCLOMINE HCL 10 MG CAPSULE PO PRN (12:15)
[2022-01-07] MEDS ORDERED: IBUPROFEN 400 MG TABLET (FP) PO PRN (12:15)
[2022-01-07] MEDS ORDERED: MAGNESIUM CITRATE 300 ML BOTTLE PO PRN (12:15)
[2022-01-07] MEDS ORDERED: BISMUTH SUBSALICYLATE 524 MG/30 ML PO PRN (12:15)
[2022-01-07] MEDS ORDERED: MAG HYDROX/AL HYDROX/SIMETH 30 ML UNIT-DOSE CUP PO PRN (12:15)
[2022-01-07] MEDS ORDERED: LOPERAMIDE HCL 2 MG CAPSULE PO PRN (12:15)
[2022-01-07] MEDS ORDERED: P-EPHED 60MG/TRIPROLIDI 2.5MG TABLET PO PRN (12:15)
[2022-01-07] MEDS ORDERED: ACETAMINOPHEN 325 MG TABLET (FP) PO PRN ×2 (12:15)
[2022-01-07 12:30] VITALS: BMI 24.1
[2022-01-07] MEDS: BACITRACIN 15 GM TUBE TOPICAL OINTMENT TP SCH ×2 (14:19→23:20)
[2022-01-07] MEDS: THIAMINE HCL 100 MG TABLET (FP) PO SCH (23:20)
[2022-01-07] MEDS: hydrOXYzine PAMOATE 25 MG CAPSULE (FP) PO PRN (23:32)
[2022-01-07] MEDS: METHOCARBAMOL 500 MG TABLET PO PRN (23:32)
[2022-01-08] MEDS: METHOCARBAMOL 500 MG TABLET PO PRN (07:45)
[2022-01-08] MEDS: hydrOXYzine PAMOATE 25 MG CAPSULE (FP) PO PRN ×2 (07:45→10:25)
[2022-01-08] MEDS ORDERED: methaDONE HCL 10 MG TABLET PO ONE (10:06)
[2022-01-08] MEDS ORDERED: methaDONE HCL 10 MG TABLET ONE (10:23)
[2022-01-08] MEDS: PRENATAL VITAMINS W/ FOLIC ACID TABLET (FP) PO SCH (10:24)
[2022-01-08] MEDS ORDERED: methaDONE HCL 40 MG DISPERSABLE TABLET ONE (10:24)
[2022-01-08] MEDS: BACITRACIN 15 GM TUBE TOPICAL OINTMENT TP SCH ×2 (10:26→23:05)
[2022-01-08] MEDS: chlordiazePOXIDE HCL 25 MG CAPSULE PO SCH ×3 (10:26→23:04)
[2022-01-08 13:49] LABS: HEMATOCRIT 37.7 % (35.4-49); HEMOGLOBIN 12.8 GM/dL (11.7-16.9); MCH 31.1 pg (25.7-33.7); MEAN CELL VOLUME 91.5 fl (80-96); MEAN PLT VOLUME 8.5 fl (7.5-11.1); PLATELET COUNT 184 10^3/uL (134-434); RBC 4.12 M/mm3 (4.00-5.60); RDW 13.8 % (11.9-15.9); WHITE BLOOD COUNT 5.5 K/mm3 (4.0-10.0)
[2022-01-08 14:06] LABS: CALCIUM 8.6 mg/dL (8.5-10.1)
[2022-01-08 14:07] LABS: BLOOD UREA NITROGEN 10.4 mg/dL (7-18)
[2022-01-08 14:10] LABS: CREATININE 0.7 mg/dL (0.55-1.3)
[2022-01-08 14:11] LABS: BILIRUBIN,TOTAL 0.4 mg/dL (0.2-1); TOT PROT 6.3 g/dl (6.4-8.2)
[2022-01-08] MEDS: chlordiazePOXIDE HCL 25 MG CAPSULE PO PRN (21:04)
[2022-01-08] MEDS: NICOTINE 10 MG CARTRIDGE (INHALER) IH PRN (21:07)
[2022-01-08] MEDS: THIAMINE HCL 100 MG TABLET (FP) PO SCH (23:05)
[2022-01-09] MEDS: chlordiazePOXIDE HCL 25 MG CAPSULE PO SCH ×2 (06:03→10:34)
[2022-01-09] MEDS ORDERED: methaDONE HCL 10 MG TABLET PO ONE (09:20)
[2022-01-09] MEDS ORDERED: methaDONE HCL 10 MG TABLET ONE (10:31)
[2022-01-09] MEDS ORDERED: methaDONE HCL 40 MG DISPERSABLE TABLET ONE (10:32)
[2022-01-09] MEDS: PRENATAL VITAMINS W/ FOLIC ACID TABLET (FP) PO SCH (10:33)
[2022-01-09] MEDS: BACITRACIN 15 GM TUBE TOPICAL OINTMENT TP SCH ×2 (10:35→23:51)
[2022-01-09] MEDS: NICOTINE 10 MG CARTRIDGE (INHALER) IH PRN (10:35)
[2022-01-09] MEDS: chlordiazePOXIDE HCL 25 MG CAPSULE PO PRN ×2 (12:15→22:13)
[2022-01-09] MEDS: chlordiazePOXIDE HCL 10 MG CAPSULE PO SCH ×2 (17:38→22:19)
[2022-01-09] MEDS: METHOCARBAMOL 500 MG TABLET PO PRN (17:38)
[2022-01-09] MEDS: hydrOXYzine PAMOATE 25 MG CAPSULE (FP) PO PRN (17:40)
[2022-01-09] MEDS: THIAMINE HCL 100 MG TABLET (FP) PO SCH (22:13)
[2022-01-09] MEDS: MELATONIN 5 MG TABLETS PO PRN (22:13)
[2022-01-10] MEDS ORDERED: chlordiazePOXIDE HCL 10 MG CAPSULE PO PRN
[2022-01-10] MEDS ORDERED: methaDONE HCL 10 MG TABLET ONE (04:20)
[2022-01-10] MEDS ORDERED: methaDONE HCL 40 MG DISPERSABLE TABLET ONE (04:21)
[2022-01-10] MEDS ORDERED: methaDONE HCL 10 MG TABLET PO SCH (06:00)
[2022-01-10] MEDS: chlordiazePOXIDE HCL 10 MG CAPSULE PO SCH ×4 (06:09→22:14)
[2022-01-10] MEDS: PRENATAL VITAMINS W/ FOLIC ACID TABLET (FP) PO SCH (10:12)
[2022-01-10] MEDS: NICOTINE 10 MG CARTRIDGE (INHALER) IH PRN ×2 (10:14→17:38)
[2022-01-10] MEDS: BACITRACIN 15 GM TUBE TOPICAL OINTMENT TP SCH ×2 (10:17→22:16)
[2022-01-10 13:07] LABS: SARS-CoV-2 NAA Not Detected (Not Detected)
[2022-01-10] MEDS: MELATONIN 5 MG TABLETS PO PRN (22:14)
[2022-01-10] MEDS: hydrOXYzine PAMOATE 25 MG CAPSULE (FP) PO PRN (22:14)
[2022-01-10] MEDS: THIAMINE HCL 100 MG TABLET (FP) PO SCH (22:14)
[2022-01-11] MEDS ORDERED: methaDONE HCL 10 MG TABLET ONE (04:22)
[2022-01-11] MEDS ORDERED: methaDONE HCL 40 MG DISPERSABLE TABLET ONE (04:23)
[2022-01-11] MEDS: chlordiazePOXIDE HCL 10 MG CAPSULE PO SCH ×2 (05:54→18:08)
[2022-01-11] MEDS: PRENATAL VITAMINS W/ FOLIC ACID TABLET (FP) PO SCH (10:31)
[2022-01-11] MEDS: BACITRACIN 15 GM TUBE TOPICAL OINTMENT TP SCH ×2 (10:33→23:18)
[2022-01-11] MEDS: METHOCARBAMOL 500 MG TABLET PO PRN (21:07)
[2022-01-11] MEDS: THIAMINE HCL 100 MG TABLET (FP) PO SCH (21:07)
[2022-01-11] MEDS: MELATONIN 5 MG TABLETS PO PRN (21:07)
[2022-01-12] MEDS ORDERED: methaDONE HCL 10 MG TABLET ONE (04:22)
[2022-01-12] MEDS ORDERED: methaDONE HCL 40 MG DISPERSABLE TABLET ONE (04:22)
[2022-01-12] MEDS ORDERED: chlordiazePOXIDE HCL 10 MG CAPSULE PO ONE (05:00)
[2022-01-12] MEDS: NICOTINE 10 MG CARTRIDGE (INHALER) IH PRN (10:30)
[2022-01-12] MEDS: PRENATAL VITAMINS W/ FOLIC ACID TABLET (FP) PO SCH (10:31)
[2022-01-12] MEDS: BACITRACIN 15 GM TUBE TOPICAL OINTMENT TP SCH (10:31)
[2022-01-12 14:54] VITALS: BP 99/57; PULSE 57; TEMP 96.4
== END 2022-01-12 13:46 | disposition other institution (70) | DRG 773 ==
LOC: YASAS 10:51 → Y6N 13:25 → UNDOADMIN 13:25
PROVIDERS: ADMIT Allergy & Immunology; ATTEND Allergy & Immunology
PROC: HZ2ZZZZ Detoxification Services for Substance Abuse Treatment (ICD-10-PCS; principal; 2022-01-07)
DX: F10.230 Alcohol dependence with withdrawal, uncomplicated (principal); F13.230 Sedative, hypnotic or anxiolytic dependence with withdrawal, uncomplicated; F11.20 Opioid dependence, uncomplicated; F14.20 Cocaine dependence, uncomplicated; F16.20 Hallucinogen dependence, uncomplicated; F12.20 Cannabis dependence, uncomplicated; F17.210 Nicotine dependence, cigarettes, uncomplicated; F32.A Depression, unspecified; F41.8 Other specified anxiety disorders; F43.10 Post-traumatic stress disorder, unspecified; M54.50 Low back pain, unspecified; G89.29 Other chronic pain; F42.4 Excoriation (skin-picking) disorder; B18.2 Chronic viral hepatitis C; Z28.310 Unvaccinated for COVID-19; Z56.0 Unemployment, unspecified; Z59.00 Homelessness unspecified
CPT/HCPCS: 36415; 80053; 82962; 85027; 86780; C9803-CS; U0003; U0005

== ENCOUNTER 2022-01-12 13:54 | Inpatient (IN) | payer OTHER ==
[2022-01-12] MEDS ORDERED: LOPERAMIDE HCL 2 MG CAPSULE PO PRN (15:42)
[2022-01-12] MEDS ORDERED: ACETAMINOPHEN 325 MG TABLET (FP) PO PRN (15:42)
[2022-01-12] MEDS ORDERED: guaiFENesin 200 MG/10 ML 10 ML UNIT-DOSE CUPS PO PRN (15:42)
[2022-01-12] MEDS ORDERED: MAGNESIUM HYDROX 2400MG/30ML ORAL SUSPENSION 30 ML CUP PO PRN (15:42)
[2022-01-12] MEDS ORDERED: BENZOCAINE/MENTHOL (CHLORASEPTIC ) LOZENGE MM PRN (15:42)
[2022-01-12] MEDS ORDERED: MAG HYDROX/AL HYDROX/SIMETH 30 ML UNIT-DOSE CUP PO PRN (15:42)
[2022-01-12] MEDS ORDERED: IBUPROFEN 400 MG TABLET (FP) PO PRN (15:42)
[2022-01-12] MEDS ORDERED: P-EPHED 60MG/TRIPROLIDI 2.5MG TABLET PO PRN (15:42)
[2022-01-12] MEDS ORDERED: MAGNESIUM CITRATE 300 ML BOTTLE PO PRN (15:42)
[2022-01-12] MEDS: hydrOXYzine PAMOATE 25 MG CAPSULE (FP) PO SCH ×2 (17:04→21:46)
[2022-01-12] MEDS: THIAMINE HCL 100 MG TABLET (FP) PO SCH (21:46)
[2022-01-12] MEDS: MELATONIN 5 MG TABLETS PO SCH (21:46)
[2022-01-13] MEDS ORDERED: methaDONE HCL 40 MG DISPERSABLE TABLET ONE (04:14)
[2022-01-13] MEDS ORDERED: methaDONE HCL 10 MG TABLET ONE (04:14)
[2022-01-13] MEDS ORDERED: methaDONE HCL 10 MG TABLET PO SCH (06:00)
[2022-01-13] MEDS: hydrOXYzine PAMOATE 25 MG CAPSULE (FP) PO SCH ×5 (06:19→21:34)
[2022-01-13] MEDS: NICOTINE 10 MG CARTRIDGE (INHALER) IH PRN (07:27)
[2022-01-13] MEDS: NICOTINE 7 MG/24 HOURS TOPICAL PATCH TD SCH (10:26)
[2022-01-13] MEDS: PRENATAL VITAMINS W/ FOLIC ACID TABLET (FP) PO SCH (10:26)
[2022-01-13] MEDS: DOCUSATE SODIUM 100 MG CAPSULE (FP) PO SCH ×2 (14:36→21:34)
[2022-01-13] MEDS: THIAMINE HCL 100 MG TABLET (FP) PO SCH (21:33)
[2022-01-13] MEDS: MELATONIN 5 MG TABLETS PO SCH (21:33)
[2022-01-14] MEDS ORDERED: methaDONE HCL 10 MG TABLET ONE (05:43)
[2022-01-14] MEDS ORDERED: methaDONE HCL 40 MG DISPERSABLE TABLET ONE (05:43)
[2022-01-14] MEDS: DOCUSATE SODIUM 100 MG CAPSULE (FP) PO SCH ×3 (06:49→22:16)
[2022-01-14] MEDS: hydrOXYzine PAMOATE 25 MG CAPSULE (FP) PO SCH ×5 (06:50→22:16)
[2022-01-14] MEDS: NICOTINE 7 MG/24 HOURS TOPICAL PATCH TD SCH (09:50)
[2022-01-14] MEDS: PRENATAL VITAMINS W/ FOLIC ACID TABLET (FP) PO SCH (09:50)
[2022-01-14] MEDS: MELATONIN 5 MG TABLETS PO SCH (22:16)
[2022-01-14] MEDS: THIAMINE HCL 100 MG TABLET (FP) PO SCH (22:16)
[2022-01-15] MEDS ORDERED: methaDONE HCL 10 MG TABLET ONE (03:24)
[2022-01-15] MEDS ORDERED: methaDONE HCL 40 MG DISPERSABLE TABLET ONE (03:24)
[2022-01-15] MEDS: hydrOXYzine PAMOATE 25 MG CAPSULE (FP) PO SCH ×5 (06:14→22:15)
[2022-01-15] MEDS: DOCUSATE SODIUM 100 MG CAPSULE (FP) PO SCH ×3 (06:14→22:15)
[2022-01-15] MEDS: PRENATAL VITAMINS W/ FOLIC ACID TABLET (FP) PO SCH (10:10)
[2022-01-15] MEDS: NICOTINE 7 MG/24 HOURS TOPICAL PATCH TD SCH (10:10)
[2022-01-15] MEDS: MELATONIN 5 MG TABLETS PO SCH (22:15)
[2022-01-15] MEDS: THIAMINE HCL 100 MG TABLET (FP) PO SCH (22:15)
[2022-01-16] MEDS ORDERED: methaDONE HCL 10 MG TABLET ONE (03:23)
[2022-01-16] MEDS ORDERED: methaDONE HCL 40 MG DISPERSABLE TABLET ONE (03:23)
[2022-01-16] MEDS: DOCUSATE SODIUM 100 MG CAPSULE (FP) PO SCH ×3 (06:07→21:26)
[2022-01-16] MEDS: hydrOXYzine PAMOATE 25 MG CAPSULE (FP) PO SCH ×3 (06:07→13:48)
[2022-01-16] MEDS: NICOTINE 7 MG/24 HOURS TOPICAL PATCH TD SCH (10:22)
[2022-01-16] MEDS: PRENATAL VITAMINS W/ FOLIC ACID TABLET (FP) PO SCH (10:22)
[2022-01-16] MEDS: hydrOXYzine PAMOATE 25 MG CAPSULE (FP) PO PRN (17:57)
[2022-01-16] MEDS: MELATONIN 5 MG TABLETS PO SCH (21:26)
[2022-01-16] MEDS: THIAMINE HCL 100 MG TABLET (FP) PO SCH (21:26)
[2022-01-17] MEDS ORDERED: methaDONE HCL 10 MG TABLET ONE (02:47)
[2022-01-17] MEDS ORDERED: methaDONE HCL 40 MG DISPERSABLE TABLET ONE (02:47)
[2022-01-17] MEDS: DOCUSATE SODIUM 100 MG CAPSULE (FP) PO SCH ×3 (06:37→21:19)
[2022-01-17] MEDS: NICOTINE 7 MG/24 HOURS TOPICAL PATCH TD SCH (09:58)
[2022-01-17] MEDS: PRENATAL VITAMINS W/ FOLIC ACID TABLET (FP) PO SCH (09:58)
[2022-01-17] MEDS: hydrOXYzine PAMOATE 25 MG CAPSULE (FP) PO PRN ×2 (11:19→21:18)
[2022-01-17] MEDS: NICOTINE 10 MG CARTRIDGE (INHALER) IH PRN (13:04)
[2022-01-17 14:08] LABS: SARS-CoV-2 NAA Not Detected (Not Detected)
[2022-01-17] MEDS: THIAMINE HCL 100 MG TABLET (FP) PO SCH (21:18)
[2022-01-17] MEDS: MELATONIN 5 MG TABLETS PO SCH (21:18)
[2022-01-18] MEDS ORDERED: methaDONE HCL 40 MG DISPERSABLE TABLET ONE (02:05)
[2022-01-18] MEDS ORDERED: methaDONE HCL 10 MG TABLET ONE (02:05)
[2022-01-18] MEDS: DOCUSATE SODIUM 100 MG CAPSULE (FP) PO SCH ×3 (06:09→21:13)
[2022-01-18] MEDS: NICOTINE 10 MG CARTRIDGE (INHALER) IH PRN ×2 (09:52→21:12)
[2022-01-18] MEDS: PRENATAL VITAMINS W/ FOLIC ACID TABLET (FP) PO SCH (09:53)
[2022-01-18] MEDS: NICOTINE 7 MG/24 HOURS TOPICAL PATCH TD SCH (09:54)
[2022-01-18] MEDS: hydrOXYzine PAMOATE 25 MG CAPSULE (FP) PO PRN ×2 (09:55→21:13)
[2022-01-18] MEDS: MELATONIN 5 MG TABLETS PO SCH (21:12)
[2022-01-18] MEDS: THIAMINE HCL 100 MG TABLET (FP) PO SCH (21:12)
[2022-01-19] MEDS ORDERED: methaDONE HCL 10 MG TABLET ONE (02:17)
[2022-01-19] MEDS ORDERED: methaDONE HCL 40 MG DISPERSABLE TABLET ONE (02:17)
[2022-01-19] MEDS: hydrOXYzine PAMOATE 25 MG CAPSULE (FP) PO PRN ×3 (02:53→21:33)
[2022-01-19] MEDS: DOCUSATE SODIUM 100 MG CAPSULE (FP) PO SCH ×3 (06:27→21:34)
[2022-01-19] MEDS: NICOTINE 10 MG CARTRIDGE (INHALER) IH PRN ×3 (06:29→21:35)
[2022-01-19] MEDS: PRENATAL VITAMINS W/ FOLIC ACID TABLET (FP) PO SCH (11:07)
[2022-01-19] MEDS: NICOTINE 7 MG/24 HOURS TOPICAL PATCH TD SCH (11:07)
[2022-01-19] MEDS ORDERED: SIMETHICONE 80 MG TAB.CHEW (FP) PO PRN (15:08)
[2022-01-19] MEDS: MELATONIN 5 MG TABLETS PO SCH (21:33)
[2022-01-19] MEDS: THIAMINE HCL 100 MG TABLET (FP) PO SCH (21:33)
[2022-01-20] MEDS ORDERED: methaDONE HCL 40 MG DISPERSABLE TABLET ONE (06:35)
[2022-01-20] MEDS ORDERED: methaDONE HCL 10 MG TABLET ONE (06:35)
[2022-01-20] MEDS: DOCUSATE SODIUM 100 MG CAPSULE (FP) PO SCH ×3 (06:43→21:10)
[2022-01-20] MEDS: hydrOXYzine PAMOATE 25 MG CAPSULE (FP) PO PRN ×3 (07:20→21:10)
[2022-01-20] MEDS: NICOTINE 10 MG CARTRIDGE (INHALER) IH PRN ×2 (10:21→18:46)
[2022-01-20] MEDS: PRENATAL VITAMINS W/ FOLIC ACID TABLET (FP) PO SCH (10:21)
[2022-01-20] MEDS: NICOTINE 7 MG/24 HOURS TOPICAL PATCH TD SCH (10:21)
[2022-01-20] MEDS: MELATONIN 5 MG TABLETS PO SCH (21:10)
[2022-01-20] MEDS: THIAMINE HCL 100 MG TABLET (FP) PO SCH (21:11)
[2022-01-21] MEDS: hydrOXYzine PAMOATE 25 MG CAPSULE (FP) PO PRN ×4 (01:12→21:18)
[2022-01-21] MEDS: NICOTINE 10 MG CARTRIDGE (INHALER) IH PRN ×4 (01:13→21:18)
[2022-01-21] MEDS ORDERED: methaDONE HCL 10 MG TABLET ONE (03:06)
[2022-01-21] MEDS ORDERED: methaDONE HCL 40 MG DISPERSABLE TABLET ONE (03:07)
[2022-01-21] MEDS: DOCUSATE SODIUM 100 MG CAPSULE (FP) PO SCH ×3 (07:33→21:18)
[2022-01-21] MEDS: NICOTINE 7 MG/24 HOURS TOPICAL PATCH TD SCH (09:45)
[2022-01-21] MEDS: PRENATAL VITAMINS W/ FOLIC ACID TABLET (FP) PO SCH (09:46)
[2022-01-21] MEDS: THIAMINE HCL 100 MG TABLET (FP) PO SCH (21:17)
[2022-01-21] MEDS: MELATONIN 5 MG TABLETS PO SCH (21:17)
[2022-01-22] MEDS ORDERED: methaDONE HCL 10 MG TABLET ONE (03:03)
[2022-01-22] MEDS ORDERED: methaDONE HCL 40 MG DISPERSABLE TABLET ONE (03:04)
[2022-01-22] MEDS: DOCUSATE SODIUM 100 MG CAPSULE (FP) PO SCH ×3 (06:45→21:17)
[2022-01-22] MEDS: NICOTINE 7 MG/24 HOURS TOPICAL PATCH TD SCH (09:18)
[2022-01-22] MEDS: PRENATAL VITAMINS W/ FOLIC ACID TABLET (FP) PO SCH (09:19)
[2022-01-22] MEDS: hydrOXYzine PAMOATE 25 MG CAPSULE (FP) PO PRN ×3 (09:19→21:16)
[2022-01-22] MEDS: NICOTINE 10 MG CARTRIDGE (INHALER) IH PRN ×3 (09:20→21:16)
[2022-01-22] MEDS: THIAMINE HCL 100 MG TABLET (FP) PO SCH (21:16)
[2022-01-22] MEDS: MELATONIN 5 MG TABLETS PO SCH (21:16)
[2022-01-23] MEDS ORDERED: methaDONE HCL 10 MG TABLET ONE (03:19)
[2022-01-23] MEDS ORDERED: methaDONE HCL 40 MG DISPERSABLE TABLET ONE (03:19)
[2022-01-23] MEDS: NICOTINE 10 MG CARTRIDGE (INHALER) IH PRN ×2 (06:10→17:37)
[2022-01-23] MEDS: DOCUSATE SODIUM 100 MG CAPSULE (FP) PO SCH (06:13)
[2022-01-23 06:30] VITALS: TEMP 97.1
[2022-01-23] MEDS: hydrOXYzine PAMOATE 25 MG CAPSULE (FP) PO PRN ×3 (09:26→21:31)
[2022-01-23] MEDS: NICOTINE 7 MG/24 HOURS TOPICAL PATCH TD SCH (09:26)
[2022-01-23] MEDS: PRENATAL VITAMINS W/ FOLIC ACID TABLET (FP) PO SCH (10:55)
[2022-01-23] MEDS: THIAMINE HCL 100 MG TABLET (FP) PO SCH (21:31)
[2022-01-23] MEDS: MELATONIN 5 MG TABLETS PO SCH (21:31)
[2022-01-23] MEDS: DOCUSATE SODIUM 100 MG CAPSULE (FP) PO PRN (21:31)
[2022-01-24] MEDS ORDERED: methaDONE HCL 40 MG DISPERSABLE TABLET ONE (03:26)
[2022-01-24] MEDS ORDERED: methaDONE HCL 10 MG TABLET ONE (03:26)
[2022-01-24] MEDS: hydrOXYzine PAMOATE 25 MG CAPSULE (FP) PO PRN (06:11)
[2022-01-24] MEDS: DOCUSATE SODIUM 100 MG CAPSULE (FP) PO PRN (06:11)
[2022-01-24] MEDS: NICOTINE 10 MG CARTRIDGE (INHALER) IH PRN (06:12)
[2022-01-24 06:38] VITALS: BP 110/72; PULSE 68
[2022-01-24] MEDS: NICOTINE 7 MG/24 HOURS TOPICAL PATCH TD SCH (10:13)
[2022-01-24] MEDS: PRENATAL VITAMINS W/ FOLIC ACID TABLET (FP) PO SCH (10:14)
== END 2022-01-24 08:00 | disposition home or self-care (01) | DRG 773 ==
LOC: YASAS 13:54 → Y3E 13:55
PROVIDERS: ADMIT Allergy & Immunology; ATTEND Allergy & Immunology
PROC: HZ2ZZZZ Detoxification Services for Substance Abuse Treatment (ICD-10-PCS; principal; 2022-01-12)
DX: F11.20 Opioid dependence, uncomplicated (principal); F10.20 Alcohol dependence, uncomplicated; F14.20 Cocaine dependence, uncomplicated; F13.20 Sedative, hypnotic or anxiolytic dependence, uncomplicated; F41.9 Anxiety disorder, unspecified; F32.A Depression, unspecified; B18.2 Chronic viral hepatitis C
CPT/HCPCS: C9803-CS; U0003; U0005

== ENCOUNTER 2022-03-28 11:18 | Inpatient (IN) | payer OTHER ==
[2022-03-28 12:53] VITALS: BMI 25.4
[2022-03-28] MEDS ORDERED: IBUPROFEN 400 MG TABLET (FP) PO PRN (13:05)
[2022-03-28] MEDS ORDERED: IBUPROFEN 600 MG TABLET (FP) PO PRN ×2 (13:05→13:44)
[2022-03-28] MEDS ORDERED: NICOTINE 10 MG CARTRIDGE (INHALER) IH PRN (13:05)
[2022-03-28] MEDS ORDERED: MAGNESIUM HYDROX 2400MG/30ML ORAL SUSPENSION 30 ML CUP PO PRN (13:05)
[2022-03-28] MEDS ORDERED: LOPERAMIDE HCL 2 MG CAPSULE PO PRN (13:05)
[2022-03-28] MEDS ORDERED: BISMUTH SUBSALICYLATE 524 MG/30 ML PO PRN (13:05)
[2022-03-28] MEDS ORDERED: DICYCLOMINE HCL 10 MG CAPSULE PO PRN (13:05)
[2022-03-28] MEDS ORDERED: BENZOCAINE/MENTHOL (CHLORASEPTIC ) LOZENGE MM PRN (13:05)
[2022-03-28] MEDS ORDERED: MAG HYDROX/AL HYDROX/SIMETH 30 ML UNIT-DOSE CUP PO PRN (13:05)
[2022-03-28] MEDS ORDERED: MAGNESIUM CITRATE 300 ML BOTTLE PO PRN (13:05)
[2022-03-28] MEDS ORDERED: ONDANSETRON *ODT* 4 MG TABLET SL PRN (13:05)
[2022-03-28] MEDS ORDERED: ACETAMINOPHEN 325 MG TABLET (FP) PO PRN ×2 (13:05)
[2022-03-28] MEDS: hydrOXYzine PAMOATE 25 MG CAPSULE (FP) PO SCH ×3 (14:36→22:23)
[2022-03-28] MEDS: NICOTINE 7 MG/24 HOURS TOPICAL PATCH TD SCH (14:36)
[2022-03-28] MEDS: PRENATAL VITAMINS W/ FOLIC ACID TABLET (FP) PO SCH (14:36)
[2022-03-28] MEDS: AMOXICILLIN 500 MG CAPSULE (FP) PO SCH ×2 (15:44→22:24)
[2022-03-28] MEDS: chlordiazePOXIDE HCL 25 MG CAPSULE PO SCH ×2 (17:55→22:24)
[2022-03-28] MEDS: MELATONIN 5 MG TABLETS PO SCH (22:23)
[2022-03-28] MEDS: THIAMINE HCL 100 MG TABLET (FP) PO SCH (22:23)
[2022-03-28] MEDS: CHLORHEXIDINE GLUCONATE 0.12% 15ML CUP MM SCH (22:26)
[2022-03-29] MEDS ORDERED: methaDONE HCL 40 MG DISPERSABLE TABLET ONE (04:12)
[2022-03-29] MEDS ORDERED: methaDONE HCL 10 MG TABLET ONE (04:12)
[2022-03-29] MEDS: hydrOXYzine PAMOATE 25 MG CAPSULE (FP) PO SCH ×5 (05:27→22:17)
[2022-03-29] MEDS: chlordiazePOXIDE HCL 25 MG CAPSULE PO SCH ×4 (05:27→22:18)
[2022-03-29] MEDS: AMOXICILLIN 500 MG CAPSULE (FP) PO SCH ×3 (05:28→22:17)
[2022-03-29 08:33] LABS: ALBUMIN 3.2 g/dl (3.4-5.0); CALCIUM 8.4 mg/dL (8.5-10.1)
[2022-03-29 08:37] LABS: CREATININE 0.7 mg/dL (0.55-1.3)
[2022-03-29 08:38] LABS: BILIRUBIN,TOTAL 0.7 mg/dL (0.2-1); TOT PROT 6.3 g/dl (6.4-8.2)
[2022-03-29 08:59] LABS: HEMATOCRIT 36.3 % (35.4-49); HEMOGLOBIN 12.1 GM/dL (11.7-16.9); MCH 30.1 pg (25.7-33.7); MCHC 33.4 g/dl (32.0-35.9); MEAN CELL VOLUME 90.3 fl (80-96); MEAN PLT VOLUME 9.2 fl (7.5-11.1); PLATELET COUNT 188 10^3/uL (134-434); RBC 4.03 M/mm3 (4.00-5.60); RDW 13.6 % (11.9-15.9); WHITE BLOOD COUNT 6.7 K/mm3 (4.0-10.0)
[2022-03-29] MEDS ORDERED: methaDONE HCL 40 MG DISPERSABLE TABLET PO SCH (10:00)
[2022-03-29] MEDS: CHLORHEXIDINE GLUCONATE 0.12% 15ML CUP MM SCH ×2 (10:12→22:18)
[2022-03-29] MEDS: PRENATAL VITAMINS W/ FOLIC ACID TABLET (FP) PO SCH (10:12)
[2022-03-29] MEDS: NICOTINE 7 MG/24 HOURS TOPICAL PATCH TD SCH (10:12)
[2022-03-29 14:07] LABS: HIV INTERPRETATION NEGATIVE (NEGATIVE)
[2022-03-29] MEDS: chlordiazePOXIDE HCL 25 MG CAPSULE PO PRN (20:39)
[2022-03-29] MEDS: THIAMINE HCL 100 MG TABLET (FP) PO SCH (22:17)
[2022-03-29] MEDS: MELATONIN 5 MG TABLETS PO SCH (22:18)
[2022-03-30] MEDS ORDERED: methaDONE HCL 10 MG TABLET ONE (04:05)
[2022-03-30] MEDS ORDERED: methaDONE HCL 40 MG DISPERSABLE TABLET ONE (04:06)
[2022-03-30] MEDS: chlordiazePOXIDE HCL 25 MG CAPSULE PO SCH ×4 (05:23→22:36)
[2022-03-30] MEDS: hydrOXYzine PAMOATE 25 MG CAPSULE (FP) PO SCH ×5 (05:23→22:37)
[2022-03-30] MEDS: AMOXICILLIN 500 MG CAPSULE (FP) PO SCH ×3 (07:34→22:37)
[2022-03-30] MEDS: PRENATAL VITAMINS W/ FOLIC ACID TABLET (FP) PO SCH (10:55)
[2022-03-30] MEDS: CHLORHEXIDINE GLUCONATE 0.12% 15ML CUP MM SCH ×2 (10:55→22:37)
[2022-03-30] MEDS: NICOTINE 7 MG/24 HOURS TOPICAL PATCH TD SCH (10:57)
[2022-03-30] MEDS: chlordiazePOXIDE HCL 25 MG CAPSULE PO PRN (13:09)
[2022-03-30] MEDS: THIAMINE HCL 100 MG TABLET (FP) PO SCH (22:36)
[2022-03-30] MEDS: MELATONIN 5 MG TABLETS PO SCH (22:37)
[2022-03-31] MEDS ORDERED: chlordiazePOXIDE HCL 10 MG CAPSULE PO PRN
[2022-03-31] MEDS ORDERED: methaDONE HCL 10 MG TABLET ONE (04:39)
[2022-03-31] MEDS ORDERED: methaDONE HCL 40 MG DISPERSABLE TABLET ONE (04:39)
[2022-03-31] MEDS: AMOXICILLIN 500 MG CAPSULE (FP) PO SCH ×3 (06:16→21:29)
[2022-03-31] MEDS: hydrOXYzine PAMOATE 25 MG CAPSULE (FP) PO SCH ×5 (06:17→21:30)
[2022-03-31] MEDS: chlordiazePOXIDE HCL 10 MG CAPSULE PO SCH ×4 (06:18→22:31)
[2022-03-31] MEDS: PRENATAL VITAMINS W/ FOLIC ACID TABLET (FP) PO SCH (10:11)
[2022-03-31] MEDS: METHOCARBAMOL 500 MG TABLET PO PRN ×2 (10:12→21:31)
[2022-03-31] MEDS: CHLORHEXIDINE GLUCONATE 0.12% 15ML CUP MM SCH ×2 (10:13→22:31)
[2022-03-31] MEDS: NICOTINE 7 MG/24 HOURS TOPICAL PATCH TD SCH (10:13)
[2022-03-31] MEDS: MELATONIN 5 MG TABLETS PO SCH (21:29)
[2022-03-31] MEDS: THIAMINE HCL 100 MG TABLET (FP) PO SCH (21:29)
[2022-04-01] MEDS ORDERED: methaDONE HCL 10 MG TABLET ONE (04:36)
[2022-04-01] MEDS ORDERED: methaDONE HCL 40 MG DISPERSABLE TABLET ONE (04:37)
[2022-04-01] MEDS: chlordiazePOXIDE HCL 10 MG CAPSULE PO SCH ×2 (05:46→18:09)
[2022-04-01] MEDS: hydrOXYzine PAMOATE 25 MG CAPSULE (FP) PO SCH ×5 (05:46→22:14)
[2022-04-01] MEDS: AMOXICILLIN 500 MG CAPSULE (FP) PO SCH ×3 (05:46→22:14)
[2022-04-01] MEDS: NICOTINE 7 MG/24 HOURS TOPICAL PATCH TD SCH (10:17)
[2022-04-01] MEDS: CHLORHEXIDINE GLUCONATE 0.12% 15ML CUP MM SCH ×2 (10:18→22:32)
[2022-04-01] MEDS: PRENATAL VITAMINS W/ FOLIC ACID TABLET (FP) PO SCH (10:18)
[2022-04-01] MEDS: MELATONIN 5 MG TABLETS PO SCH (22:14)
[2022-04-01] MEDS: THIAMINE HCL 100 MG TABLET (FP) PO SCH (22:14)
[2022-04-01] MEDS: METHOCARBAMOL 500 MG TABLET PO PRN (22:14)
[2022-04-02] MEDS ORDERED: methaDONE HCL 40 MG DISPERSABLE TABLET ONE (04:11)
[2022-04-02] MEDS ORDERED: methaDONE HCL 10 MG TABLET ONE (04:11)
[2022-04-02] MEDS ORDERED: chlordiazePOXIDE HCL 10 MG CAPSULE PO ONE (05:00)
[2022-04-02] MEDS: AMOXICILLIN 500 MG CAPSULE (FP) PO SCH ×3 (06:20→22:20)
[2022-04-02] MEDS: hydrOXYzine PAMOATE 25 MG CAPSULE (FP) PO SCH ×5 (06:21→22:20)
[2022-04-02] MEDS: PRENATAL VITAMINS W/ FOLIC ACID TABLET (FP) PO SCH (10:05)
[2022-04-02] MEDS: NICOTINE 7 MG/24 HOURS TOPICAL PATCH TD SCH (10:05)
[2022-04-02] MEDS: CHLORHEXIDINE GLUCONATE 0.12% 15ML CUP MM SCH ×2 (10:06→22:21)
[2022-04-02] MEDS: MELATONIN 5 MG TABLETS PO SCH (22:20)
[2022-04-02] MEDS: THIAMINE HCL 100 MG TABLET (FP) PO SCH (22:20)
[2022-04-03] MEDS ORDERED: methaDONE HCL 10 MG TABLET ONE (04:15)
[2022-04-03] MEDS ORDERED: methaDONE HCL 40 MG DISPERSABLE TABLET ONE (04:16)
[2022-04-03] MEDS: hydrOXYzine PAMOATE 25 MG CAPSULE (FP) PO SCH ×2 (05:14→10:31)
[2022-04-03] MEDS: AMOXICILLIN 500 MG CAPSULE (FP) PO SCH (07:44)
[2022-04-03 09:18] VITALS: BP 99/55; PULSE 60; TEMP 97.4
[2022-04-03] MEDS: CHLORHEXIDINE GLUCONATE 0.12% 15ML CUP MM SCH (10:31)
[2022-04-03] MEDS: PRENATAL VITAMINS W/ FOLIC ACID TABLET (FP) PO SCH (10:31)
[2022-04-03] MEDS: NICOTINE 7 MG/24 HOURS TOPICAL PATCH TD SCH (10:32)
== END 2022-04-03 11:25 | disposition home or self-care (01) | DRG 773 ==
LOC: YASAS 11:18 → Y6N 13:18 → Y3N 13:20
PROVIDERS: ADMIT Allergy & Immunology; ATTEND Surgery
PROC: HZ2ZZZZ Detoxification Services for Substance Abuse Treatment (ICD-10-PCS; principal; 2022-03-28)
DX: F10.230 Alcohol dependence with withdrawal, uncomplicated (principal); F11.20 Opioid dependence, uncomplicated; F14.20 Cocaine dependence, uncomplicated; F13.20 Sedative, hypnotic or anxiolytic dependence, uncomplicated; F16.20 Hallucinogen dependence, uncomplicated; F12.20 Cannabis dependence, uncomplicated; F17.210 Nicotine dependence, cigarettes, uncomplicated; F41.8 Other specified anxiety disorders; B18.2 Chronic viral hepatitis C; M54.50 Low back pain, unspecified; G89.29 Other chronic pain; Z28.310 Unvaccinated for COVID-19; Z59.02 Unsheltered homelessness
CPT/HCPCS: 36415; 80053; 82947; 83036; 85027; 86780; 87389; C9803-CS; U0003; U0005

== ENCOUNTER 2023-08-14 10:33 | Inpatient (IN) | payer OTHER ==
[2023-08-14 11:19] VITALS: BMI 37.0
[2023-08-14] MEDS ORDERED: NALOXONE HCL (KLOXXADO) 8 MG SPRAY NS PRN (12:04)
[2023-08-14] MEDS ORDERED: POLYETHYLENE GLYCOL (HEALTHYLAX) 3350 17 GM PACKET PO PRN (12:04)
[2023-08-14] MEDS ORDERED: BISMUTH SUBSALICYLATE 262 MG/15 ML BTL PO PRN (12:04)
[2023-08-14] MEDS ORDERED: MAG HYDROX/AL HYDROX/SIMETH 30 ML UNIT-DOSE CUP PO PRN (12:04)
[2023-08-14] MEDS ORDERED: BENZONATATE 200 MG CAPSULE PO PRN (12:04)
[2023-08-14] MEDS ORDERED: NICOTINE POLACRILEX 2 MG GUM BUC PRN (12:04)
[2023-08-14] MEDS ORDERED: METHOCARBAMOL 500 MG TABLET PO PRN (12:04)
[2023-08-14] MEDS ORDERED: ACETAMINOPHEN 325 MG TABLET (FP) PO PRN (12:04)
[2023-08-14] MEDS ORDERED: ONDANSETRON *ODT* 4 MG TABLET SL PRN (12:04)
[2023-08-14] MEDS ORDERED: BENZOCAINE/MENTHOL (CHLORASEPTIC ) LOZENGE MM PRN (12:04)
[2023-08-14] MEDS ORDERED: guaiFENesin 600 MG TABLET.ER (FP) PO PRN (12:04)
[2023-08-14] MEDS ORDERED: IBUPROFEN 400 MG TABLET (FP) PO PRN (12:04)
[2023-08-14] MEDS ORDERED: IBUPROFEN 600 MG TABLET (FP) PO PRN (12:04)
[2023-08-14] MEDS ORDERED: MAGNESIUM HYDROX 2400MG/30ML ORAL SUSPENSION 30 ML CUP PO PRN (12:04)
[2023-08-14] MEDS ORDERED: NALOXONE HCL 0.4 MG/ML VIAL IM PRN (12:04)
[2023-08-14] MEDS ORDERED: LOPERAMIDE HCL 2 MG CAPSULE PO PRN (12:04)
[2023-08-14] MEDS: diazePAM 5 MG TABLET PO SCH ×2 (17:49→22:12)
[2023-08-14] MEDS: MELATONIN 5 MG TABLETS PO SCH (22:14)
[2023-08-14] MEDS: THIAMINE HCL 100 MG TABLET (FP) PO SCH (22:16)
[2023-08-15] MEDS: diazePAM 5 MG TABLET PO SCH ×4 (05:55→22:29)
[2023-08-15] MEDS ORDERED: methaDONE HCL 40 MG DISPERSABLE TABLET PO SCH (06:00)
[2023-08-15 08:28] LABS: POTASSIUM 4.1 mmol/L (3.5-5.1)
[2023-08-15 08:32] LABS: ALBUMIN 3.3 g/dl (3.4-5.0); BLOOD UREA NITROGEN 15.7 mg/dL (7-18)
[2023-08-15 08:35] LABS: CREATININE 0.9 mg/dL (0.55-1.3)
[2023-08-15 08:37] LABS: BILIRUBIN,TOTAL 0.2 mg/dL (0.2-1); TOT PROT 6.6 g/dl (6.4-8.2)
[2023-08-15 08:40] LABS: HEMATOCRIT 41.4 % (35.4-49); HEMOGLOBIN 13.2 GM/dL (11.7-16.9); MCH 29.3 pg (25.7-33.7); MCHC 31.8 g/dl (32.0-35.9); MEAN CELL VOLUME 91.9 fl (80-96); PLATELET COUNT 214 10^3/uL (134-434); RBC 4.51 M/mm3 (4.00-5.60); RDW 14.6 % (11.9-15.9); WHITE BLOOD COUNT 10.7 K/mm3 (4.0-10.0)
[2023-08-15] MEDS: PRENATAL VITAMINS W/ FOLIC ACID TABLET (FP) PO SCH (10:33)
[2023-08-15] MEDS: NICOTINE 14 MG/24 HOURS TOPICAL PATCH TD SCH (10:34)
[2023-08-15] MEDS: hydrOXYzine PAMOATE 25 MG CAPSULE (FP) PO PRN ×2 (11:21→22:33)
[2023-08-15] MEDS: diazePAM 5 MG TABLET PO PRN ×2 (13:32→20:11)
[2023-08-15] MEDS: THIAMINE HCL 100 MG TABLET (FP) PO SCH (22:30)
[2023-08-15] MEDS: MELATONIN 5 MG TABLETS PO SCH (22:30)
[2023-08-16] MEDS: diazePAM 5 MG TABLET PO SCH ×3 (05:47→22:07)
[2023-08-16] MEDS: NICOTINE 14 MG/24 HOURS TOPICAL PATCH TD SCH ×2 (10:18→11:20)
[2023-08-16] MEDS: PRENATAL VITAMINS W/ FOLIC ACID TABLET (FP) PO SCH (10:18)
[2023-08-16] MEDS: diazePAM 5 MG TABLET PO PRN ×3 (12:14→22:08)
[2023-08-16] MEDS: hydrOXYzine PAMOATE 25 MG CAPSULE (FP) PO PRN (17:02)
[2023-08-16] MEDS: MELATONIN 5 MG TABLETS PO SCH (22:08)
[2023-08-16] MEDS: THIAMINE HCL 100 MG TABLET (FP) PO SCH (22:08)
[2023-08-17] MEDS: hydrOXYzine PAMOATE 25 MG CAPSULE (FP) PO PRN ×2 (02:02→20:10)
[2023-08-17] MEDS: diazePAM 5 MG TABLET PO SCH ×3 (05:02→17:49)
[2023-08-17] MEDS: PRENATAL VITAMINS W/ FOLIC ACID TABLET (FP) PO SCH (11:12)
[2023-08-17] MEDS: NICOTINE 14 MG/24 HOURS TOPICAL PATCH TD SCH (11:12)
[2023-08-17] MEDS: THIAMINE HCL 100 MG TABLET (FP) PO SCH (22:13)
[2023-08-17] MEDS: MELATONIN 5 MG TABLETS PO SCH (22:13)
[2023-08-18] MEDS ORDERED: diazePAM 5 MG TABLET PO ONE (06:00)
[2023-08-18 09:21] VITALS: BP 96/56; PULSE 64; RESP 16; TEMP 98.2
[2023-08-18] MEDS: NICOTINE 14 MG/24 HOURS TOPICAL PATCH TD SCH (10:22)
[2023-08-18] MEDS: PRENATAL VITAMINS W/ FOLIC ACID TABLET (FP) PO SCH (10:22)
== END 2023-08-18 10:26 | disposition home or self-care (01) | DRG 773 ==
LOC: YASAS 10:33 → Y6N 13:42
PROVIDERS: ADMIT Allergy & Immunology; ATTEND Surgery
PROC: HZ2ZZZZ Detoxification Services for Substance Abuse Treatment (ICD-10-PCS; principal; 2023-08-14)
DX: F10.230 Alcohol dependence with withdrawal, uncomplicated (principal); F13.230 Sedative, hypnotic or anxiolytic dependence with withdrawal, uncomplicated; F11.20 Opioid dependence, uncomplicated; F14.20 Cocaine dependence, uncomplicated; F17.210 Nicotine dependence, cigarettes, uncomplicated; F41.9 Anxiety disorder, unspecified; F32.A Depression, unspecified; F43.10 Post-traumatic stress disorder, unspecified
CPT/HCPCS: 36415; 80053; 80307; 85027; 86780; 87635; 87811; 93005; 93010